=== PATIENT | female | born 1965 | race Caucasian/White ===

== ENCOUNTER 2017-09-06 18:48 | Emergency (ER) | payer SELFPAY ==
[2017-09-06 18:49] VITALS: BP 150/89; PULSE 62; RESP 16; TEMP 37.3; O2SAT 99; BMI 31.1
--- NOTE | 2017-09-06 19:22 | CT_ITS ---
STUDY: CT ABDOMEN AND PELVIS WITH CONTRAST REASON FOR EXAM: Female, 52 years old. Abdominal pain, nausea vomiting and diarrhea with increased white count. RADIATION DOSAGE (If Supplied By Facility): CTDIvol = ( 16.21 ) mGy, DLP = ( 1129.29 ) mGycm TECHNIQUE: Transaxial images were obtained from the dome of the diaphragm to the symphysis pubis with oral contrast. 100 ml of Isovue 300 contrast was administered. Sagittal and coronal images were reconstructed. Individualized dose optimization techniques were used for this CT. COMPARISON: None. FINDINGS: Posterior moderate dependent atelectatic changes of the right lung. More extensive atelectatic change versus early pneumonic infiltrate at the left lung base. The visualized portions of the heart are within normal limits. Normal liver. Dense sludge or numerous tiny gallstones in the gallbladder fundus. Negative for gross wall thickening or pericholecystic fluid. Normal spleen. Normal pancreas. Normal bilateral adrenal glands. Normal right kidney. Normal left kidney. Normal visualized stomach. Normal small intestine. Normal colon. There is non-visualization of the appendix. Normal abdominal aorta. Normal inferior vena cava. Normal retroperitoneum. Distended urinary bladder. Partially septated endometrium with endometrial thickening versus fluid filled endometrial space. There is a large nabothian cyst measuring 3 cm in the lower uterine segment/cervix. There are 2 additional subcentimeter nabothian cysts. Prominent hypodense ovaries bilaterally. Minimal free fluid. Normal abdominal wall. Minor degenerative disc changes of the lumbar spine. CT/Abdomen/Pelvis WITH Contrast IMPRESSION: No acute bowel related findings. Negative for bowel obstruction, perforation or inflammatory bowel changes. The appendix is not visualized. Multiple tiny stones or dense sludge in the gallbladder without wall thickening, pericholecystic fluid or biliary ductal dilatation. Fatty changes of the pancreas. Partially septated endometrium of the uterus with endometrial thickening or fluid filled endometrium. Large nabothian cyst of the cervix. Prominent hypodense ovaries bilaterally. Probable 2.5 cm cyst of the right ovary. No well-defined cyst of the left ovary. Mild free fluid in the pelvis. Normal kidneys bilaterally. Slight prominence of ureters without hydronephrosis. Distended urinary bladder. Electronically Signed: Katherine Nassar MD at 21:40 EDT , Service support ,
[2017-09-06] MEDS: Ondansetron 4 MG/2 ML Vial IV (19:36)
[2017-09-06] MEDS: Morphine 4 MG/ML Syringe IV (19:36)
[2017-09-06] MEDS: Ketorolac 30 MG/ML Syringe IV (19:36)
[2017-09-06] MEDS: 0.9% Normal Saline 1,000 ML 1000 ML IV (19:36)
[2017-09-06 20:04] LABS: Absolute Lymphocyte Count 2.24 X10^3/ul (0.83-4.51); Absolute Neutrophil Count 10.6 X10^3/uL (2.0-7.7); Anion Gap 7 (5-15); BUN 5 mg/dL (7-18); BUN/Creat Ratio 5.6 RATIO (10-20); Basophil# 0.05 X10^3/uL; Basophil% 0.4 % (0-1); Calcium,Total 8.5 mg/dL (8.5-10.1); Chloride 108 mmol/L (98-107); Creatinine, Serum 0.89 mg/dL (0.55-1.02); EST Glomerular Filtration Rate 71 mL/min (>60); Eosinophil# 0.21 X10^3/uL; Eosinophils% 1.5 % (0-5); Est Glom Filt Rate - Afr Amer 86 mL/min (>60); Estimated Creatinine Clearance 59.81 ml/min; Glucose 86 mg/dL (74-106); Hematocrit 31.7 % (37-47); Lymphocyte # 2.24 X10^3/ul (4.0); Lymphocyte % 16.2 % (19-41); Mean Corp Hgb Conc 31.5 g/gl (32-36); Mean Corpuscular Hgb 23.4 pg (27.0-32.0); Mean Corpuscular Volume 74.1 fL (81-99); Mean Platelet Vol. 11.1 fl (6.2-12.0); Monocyte# 0.75 X10^3/uL; Monocyte% 5.4 % (0-10); Neutrophil # 10.56 X10^3/uL (2.7-7.7); Neutrophil % 76.4 % (47-70); Platelet Count 345 K/mm3 (150-450); Potassium 3.5 mmol/L (3.5-5.1); RBC Distribution Width CV 20.8 % (11.6-14.6); RBC Distribution Width SD 55.5 fl (35.1-43.9); Red Blood Count 4.28 M/mm3 (4.2-5.4); Sodium Level 141 mmol/L (136-145); White Blood Count 13.8 K/mm3 (4.4-11.0)
[2017-09-06 20:05] LABS: Differential Indicated SCAN CRITERIA MET; POSITIVE COUNT NO; POSITIVE DIFFERENTIAL NO; POSITIVE MORPHOLOGY YES
[2017-09-06 20:44] LABS: Pregnancy, Serum, hCG Quali. NEGATIVE Negative (0-9 Nonpreg)
[2017-09-06 21:32] LABS: Bacteria 0 SEEN /hpf (None Seen); Mucous, Urine 0 SEEN /hpf (<or=2+); Red Blood Cells-Urine 0 SEEN /hpf (0-5); White Blood Cells 0 SEEN /hpf (0-5)
[2017-09-06 21:34] LABS: Color, Urine Yellow (Yellow); Glucose, Dipstick Normal (Normal); Ketone-Dipstick Negative (Negative); Leukocyte Esterase-Dipstick Negative /ul (Negative); Nitrite-Dipstick Negative (Negative); Occult Blood-Urine Negative /ul (Negative); Protein-Dipstick Negative (Negative); Urine Bilirubin Dipstick Negative (Negative); Urine Clarity Sl. Cloudy (Clear); Urine Urobilinogen Normal (Normal)
[2017-09-06 21:41] LABS: Squamous Epithelial Cells - UA 0-5 SEEN /hpf (5-10)
[2017-09-06 22:06] VITALS: BP 121/69; PULSE 57; RESP 16
--- NOTE | 2017-09-06 22:58 | ED.DCSUM_ITS ---
- ER Visit Summary Date of Service: 09/06/17 Chief Complaint: Pubic and lower quadrant abdominal pain History of Present Illness: The patient is a 52 F past medical history of a uterine ablation. No other prior abdominal surgeries. Patient states that yesterday she had gradual onset of continuous lower quadrant periumbilical abdominal pain. Associated nausea. Denies vomiting or diarrhea. Denies dysuria or denies fever or back pain. No abdominal trauma. Physical Examination: Well-appearing female. Vital signs are stable. Temperature is 99.2. She does not look septic or toxic. She is in no distress. H EENT exam unremarkable. Moist wheeze membranes. Neck nontender no lymphadenopathy. Lungs clear to auscultation bilaterally. Heart regular rhythm no murmur. Abdomen soft nondistended. Normal bowel sounds no peritoneal signs. Mildly tender periumbilically primarily suprapubically. No obvious hernias or masses. The right lower quadrant McBurney's point is nontender. The right upper quadrant in both upper quadrants and epigastric region are completely nontender. There is no distention. She has normal bowel sounds. There is no signs of obstruction. No obvious masses. She is moving all 4 extremities. The neurovascular intact. Back exam nontender. Neurologic exam unremarkable. Test Results: The abdomen with IV and p.o. contrast showed sludge and gallstones. But no cholecystitis. The appendix was not seen. There is a right ovarian cyst of 2.5 cm. There was mild distention of the bladder. White count was elevated 13.8 H&H of 10 and 31 which is her baseline or better she chronically is anemic. Her electrolytes are unremarkable with a normal gap and creatinine. UA was normal. Serum test was negative. Emergency Department Course and Treatment: Patient was treated with IV normal saline, morphine Zofran and Toradol. On repeat exam she is doing much better 2253. Her abdomen is benign. There are no peritoneal signs. Currently she is pain-free and feels well. Treatment Plan: We do not have a specific cause of the patient's abdominal discomfort. She will be discharged home [facility]. She knows to return if she is feeling worse, increasing pain or fever. Disposition: Discharge Impression: Lower quadrant abdominal pain of uncertain etiology This note was generated with [employer] software. It may contain incorrect words, spelling, and punctuation that were not noted in review of the chart prior to signing ED Disposition - Plan for ED Patient: Chief Complaint: Abd Pain Referrals: Sherin Navarrete MD [Primary Care Provider] -
--- NOTE | 2017-09-06 22:59 | DCINST.ED_ITS ---
ED Disposition - Plan for ED Patient: Disposition: Home or Assisted Living Chief Complaint: Abd Pain Instructions: ED Abdominal Pain Unkn Cause Referrals: Sherin Navarrete MD [Primary Care Provider] - As soon as possible Additional Instructions: Tylenol and or Motrin for pain. Follow-up with your primary care physician or the [facility] for further evaluation. There is no specific diagnosis for your abdominal pain this evening. Her labs and CAT scan were unremarkable. Incidentally do have gallstones but they are not the cause your pain tonight. You also have a small right ovarian cyst.
--- NOTE | 2017-09-06 23:06 | DCINST.ED_ITS ---
ED Disposition - Plan for ED Patient: Disposition: Home or Assisted Living Chief Complaint: Abd Pain Instructions: ED Abdominal Pain Unkn Cause Prescriptions: Ondansetron [Zofran Odt] 4 mg PO Q4H PRN PRN #10 tab.rapdis PRN Reason: Nausea Referrals: Sherin Navarrete MD [Primary Care Provider] - As soon as possible Additional Instructions: Tylenol and or Motrin for pain. Follow-up with your primary care physician or the [facility] for further evaluation. There is no specific diagnosis for your abdominal pain this evening. Her labs and CAT scan were unremarkable. Incidentally do have gallstones but they are not the cause your pain tonight. You also have a small right ovarian cyst.
[2017-09-06 23:10] VITALS: BP 113/63; PULSE 78; RESP 16
== END 2017-09-06 23:11 | disposition home or self-care (01) ==
PROVIDERS: Emergency Provider Emergency Medicine; Family Provider Internal Medicine; PCP Internal Medicine
DX: R10.30 Lower abdominal pain, unspecified (principal); R10.33 Periumbilical pain; R11.0 Nausea; K80.80 Other cholelithiasis without obstruction; N83.201 Unspecified ovarian cyst, right side; D64.9 Anemia, unspecified
CPT/HCPCS: 74177; 80048; 81001; 84703; 85025; 96374; 96375; 99284; J7030; Q9967; J2405

== ENCOUNTER → 2020-02-24 07:56 | Outpatient (CLI) | payer MEDICAID, SELFPAY ==
[2020-02-24] VITALS (10 sets, daily range): BP systolic 106–130; BP diastolic 61–90; PULSE 79–89; RESP 16; TEMP 36.8–37.1; O2SAT 99–100; BMI 32.1
[2020-02-24 09:28] LABS: Ferritin 3 ng/mL (8-252); Iron 9 ug/dL (50-170); Iron Binding Capacity,Total 438 ug/dL (250-450)
== END ==
PROVIDERS: PCP Internal Medicine; Referring Provider Obstetrics & Gynecology; Visit Provider Obstetrics & Gynecology
DX: D50.0 Iron deficiency anemia secondary to blood loss (chronic) (principal)
CPT/HCPCS: 36430; 82728; 83540; 83550; 86850; 86900; 86901; 86920; 86922; J7040; P9016; A4216

== ENCOUNTER 2020-03-18 10:00 | Day surgery (SDC) | payer MEDICAID, SELFPAY ==
[2020-02-24 08:11] VITALS: BMI 32.1
--- NOTE | 2020-03-10 17:28 | PCM.HP.BLA ---
History and Physical Date of Admission: 03/18/20 HPI: The patient is a 54 year old female presenting for pre-operative visit.??She had a blood transfusion for hgb 5.9 after her last appointment. ?She has also been getting IV fe infusions. ?Repeat CBC todayshows marked improvement w/ hgb 10.9. She is scheduled for?total laparoscopic hysterectomy with bilateral salpingectomy, for?menometrorrhagia, chronic blood loss iron deficiency anemia, on?03/18/2020. ??Procedure discussed along with risks, benefits and complications. ?Other alternatives discussed for management. Consent form signed??Yes.? PAST MEDICAL HISTORY PAST MEDICAL HISTORY Diagnosis Date ? Acute gastritis without mention of hemorrhage ? ? Allergic rhinitis, cause unspecified ? ? Esophageal reflux 2002 ? Other and unspecified hyperlipidemia ? ? Unspecified hypothyroidism 1995 ? ? PAST SURGICAL HISTORY PAST SURGICAL HISTORY Procedure Laterality Date ? EGD W/O BRSH SPECIMEN W/BX ? 12/30/07 ? LEEP PROCEDURE ([employer])_*[place] ? 11/01/2010 ? LEWIS 2 ? THERMAL ENDOMETRIAL ABLATION ? 03/22/2017 ? Amy ? ? CURRENT MEDICATIONS Current Outpatient Medications Medication Sig Dispense Refill ? tranexamic acid (LYSTEDA) 650 mg tablet Take 2 tablets by mouth three times daily as needed (heavy menstrual bleeding) for up to 5 days. 30 tablet 0 ? norethindrone (AYGESTIN) 5 mg tablet Take 1 tablet by mouth once daily. ONE PO Q 1 HR UNTIL BLEEDING SLOWS, UP TO 5 TABS TODAY. ?THEN ONE PO QID X 3 DAYS THEN TID X 3 DAYS THEN BID X 3 DAYS THEN ONE QDAY. (Patient not taking: Reported on 02/23/2020 ) 30 tablet 1 ? escitalopram oxalate (ESCITALOPRAM) 5 mg tablet Take 1 tablet by mouth once daily. (Patient not taking: Reported on 02/04/2020 ) 30 tablet 5 ? levothyroxine (SYNTHROID) 100 mcg tablet Take 1 tablet by mouth once daily. Take on empty stomach, appointment needed for future refills 30 tablet 5 ? Current Facility-Administered Medications Medication Dose Route Frequency Provider Last Rate Last Admin ? iron sucrose 200 mg injection (VENOFER) ?200 mg INTRAVENOUS 2/WK Faith ([employer]) Edison ? ? ? ALLERGIES:?Patient has no known allergies. ? PERSONAL HISTORY:? SOCIAL HISTORY Social History ? Tobacco Use ? Smoking status: Never Smoker ? Smokeless tobacco: Never Used Substance Use Topics ? Alcohol use: No ? Drug use: No ? FAMILY HISTORY:? FAMILY HISTORY FAMILY HISTORY Problem Relation Age of Onset ? Stroke Mother ? ? other (rheumatoid arthritis) Mother ? ? Cancer Father 69 ?Melanoma/bone cancer ? Heart Maternal Grandmother ? ? Diabetes Maternal Grandmother ? ? Cancer Maternal Grandfather ?pancreatic CA ? Cancer Paternal Grandmother ?spine ? other (Other) Paternal Grandfather ?appendix burst ? REVIEW OF SYMPTOMS: GENERAL: denies fevers or chills ENDOCRINOLOGY: has not been on steroids Cardiology : denies palpitations or chest pain Respiratory: denies SOB or cough Hematology: denies history of prolonged bleeding or easy bruising or VTE Allergy: Denies history of personal or family history of allergy to anesthesia ? ? PHYSICAL EXAMINATION: ? VITALS:?Last menstrual period 02/03/2020. ? GENERAL:??The patient is well nourished, well hydrated in no acute distress. ?, The patient is oriented to time, place, and person. NECK:?Supple. No lynphadenopathy, normal thyroid, no thyromegaly. LUNGS:?Clear to auscultation bilaterally. no wheezes, rhonchi or rales HEART:?Regular rate and rhythm, Normal heart sounds and No murmurs or gallops ? ? EMB 02/22: Endometrial biopsy - Benign cervical tissue with marked acute and chronic endocervicitis. - Proliferative endometrium with stromal pseudodecidualization consistent with exogenous progestin effect. PElVIC US 01/29/2020: Transabdominal ultrasound examination. View: Suboptimal view: restricted by increased bowel gas Uterus Uterus: Visualized Uterus position: anteverted Uterus long 83 mm Uterus ap 49 mm Uterus tr 63 mm Uterus Vol 135.1 cm? Endometrial thickness, total 8.0 mm Right Ovary Rt ovary: Visualized Rt ovary D1 23 mm Rt ovary D2 15 mm Rt ovary D3 14 mm Rt ovary Vol 2.6 cm? Left Ovary Lt ovary: Not visualized ? 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 ? PLAN:???The risks/benefits/alternatives and personal involved for the planned?TLH, bilateral salpingectomy?were reviewed with the patient. Her questions were answered to her satisfaction and she desires to proceed. ?Consent was signed. ?I reviewed with her postop instructions and expectations. ? ? I have reviewed and updated past medical and surgical history, medications and allergies. This H&P was completed in my office on 03/10/2020. Procedure Criteria Procedure Type: Elective COVID Risk Discussion: The surgeon/proceduralist and patient have discussed in detail the risk of exposure to and/or potential harm posed by the COVID-19 virus with having a surgery/procedure at this time versus the risk of delaying the surgery/procedure. It is not possible to know either the risk of delaying the surgery or procedure or chance of getting an infection with perfect accuracy, but a joint decision was made between the patient and the surgeon/proceduralist to proceed at this time with the scheduled surgery/procedure as indicated on the consent form.
--- NOTE | 2020-03-16 12:45 | EKG12_ITS ---
Test Reason : PREOP Blood Pressure : / mmHG Vent. Rate : 065 BPM Atrial Rate : 065 BPM P-R Int : 198 ms QRS Dur : 080 ms QT Int : 386 ms P-R-T Axes : 038 005 033 degrees QTc Int : 401 ms Normal sinus rhythm Low voltage QRS (Precordial Leads) Confirmed by DELANO MARIA, GRACIE ([id number]), social media editor MARKUS GONZALEZ ([id number]) on 03/17/2020 9:44:13 AM Referred By: Trina Wu Confirmed By:GRACIE WICK MD
[2020-03-16 14:03] LABS: Magnesium 2.1 mg/dL (1.6-2.6); Thyroid Stim Hormone (TSH) 3.49 uIU/mL (0.358-3.74)
[2020-03-16 16:56] LABS: Probe Check PASS; Specimen Processing Control PASS
[2020-03-18] VITALS (12 sets, daily range): BP systolic 88–125; BP diastolic 57–83; PULSE 51–65; RESP 14–16; TEMP 36.1–36.9; O2SAT 94–100; BMI 32.3; BMI 32.0
[2020-03-18] MEDS: Gabapentin 600 MG Tablet PO (07:00)
[2020-03-18] MEDS: dexAMETHasone 10 MG/ML Vial 8 MG IV (07:00)
[2020-03-18] MEDS: Scopolamine 1mg/72hr Patch 1 PATCH TD (07:00)
[2020-03-18 10:42] LABS: Internal QC Validated? YES +Cl - CLEAR BKGD; Pregnancy, Urine Negative Negative
[2020-03-18 10:50] LABS: Bedside Glucose 88 mg/dL (70-110)
[2020-03-18] MEDS: Acetaminophen 500 MG Tablet 1000 MG PO ×2 (10:53→18:24)
[2020-03-18] MEDS: Celecoxib 200 MG Capsule 400 MG PO (10:55)
[2020-03-18] MEDS: Phenazopyridine 95 MG Tablet 190 MG PO (10:55)
[2020-03-18] MEDS: Enoxaparin 40 MG/0.4 ML Syringe SC (10:56)
[2020-03-18] MEDS: Lactated Ringers 1,000 ML 40 ML IV ×4 (10:57→15:24)
--- NOTE | 2020-03-18 11:30 | HYST_PTH ---
PATIENT: ABILIO MON [place] [facility][id number] AGE/SX: 54/F ROOM: RE03/18/[address]: Dr. Trina Wu MD : [id number] BED: DIS: 03/19/2020 SPEC #: [id number] RECD: 03/18/20 14:51 STATUS: ISAAC WILLIE #: [id number] TED: 03/18/20 11:[address]: Trina Wu DEPT: SURGICAL PATHOLOGY RECD BY: Jessie Jalloh ENTERED: 03/19/20 07:49 SP TYPE: HYSTERECT OTHR DR: Dr. 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 Endometrium - proliferative endometrium. Myometrium - nodular adenomyosis. Right and left fallopian tubes - no pathologic change. AM:codi 03/22/20 MICROSCOPIC DESCRIPTION Slides are reviewed. GROSS DESCRIPTION Received in fixative is one container labeled with the patient's name and designated uterus. The specimen consists of a uterus with attached cervix and two detached fallopian tubes that are not designated. The uterus with cervix measures 9 x 7 x 5 cm and weighs 135 gm. The ectocervix is somewhat disrupted, however, no mass lesions are seen. The endocervical canal measures 3 cm in length and is grossly unremarkable. The elongated endometrial cavity measures 4 x 3 cm. The myometrium measures 2.5 in greatest thickness and contains a single rubbery, andrade nodule in a submucosal location measuring 0.9 cm in greatest dimension. The right and left fallopian tubes are similar in appearance with average lengths of 6 cm and average diameters of 0.7 cm. Normal fimbriated ends are identified. Aircraft Assembler sections are submitted in seven cassettes as follows: 1 - anterior cervix, 2 - posterior cervix, 3 & 4 - anterior uterine wall, 5 & 6 - posterior uterine wall with submucosal nodule, 7 - one fallopian tube, 8 - the other fallopian tube. / AM:codi 03/19/20 TC:5 CPT: 85081
[2020-03-18] MEDS: Cefazolin 2 GM in 0.9% Normal Saline 100 ML IV (11:38)
[2020-03-18] MEDS: Lubricating Jelly 60 GM Tube 30 GM TOPICAL (12:03)
[2020-03-18] MEDS: Lidocaine 1% /Epi 1:100 (20ml) 20 ML Vial (12:03)
[2020-03-18] MEDS: Bupivacaine Mpf 0.5% 30 ML VIAL (12:03)
--- NOTE | 2020-03-18 13:04 | OP.PCM_ITS ---
Report of Operation Date of Procedure: 03/18/20 Pre-Operative Diagnosis: abnormal uterine bleeding, iron deficiency anemia from chronic blood loss from menorrhagia Post-Operative Diagnosis: Same Surgery/Procedure Performed:: Laparoscopic-assisted vaginal hysterectomy with bilateral salpingectomy and cystoscopy Description of Surgical Findings:: Normal-appearing uterus tubes and ovaries, normal cervix and vagina. patient registration supervisor: Luma Ewing Type of Anesthesia:: General Anesthesiologist: Rosalee Douglas Special Medications: none Specimen's removed: Uterus, cervix, bilateral fallopian tubes Drains: Stringer Estimated Blood Loss (mL): 100 Fluids Replaced: 1000 ml Description of Procedure: The patient was taken to the operating room where she was prepped and draped in the dorsal lithotomy position. Her arms were tucked to the side and padded and her legs were placed in the yellowfin stirrups. Care was taken to ensure that she was placed in a neurologically safe and neutral position. A weighted specu lum was placed in the vagina and the anterior lip of the cervix was grasped with a single-tooth tenaculum. It was deemed that there was enough descent once the patient was asleep that we could proceed with a laparoscopic-assisted vaginal hysterectomy rather than a total laparoscopic hysterectomy. The uterus sounded to 9 centimeters. The Stacy uterine manipulator was placed and secured. The Stringer catheter was placed to straight drain. Attention was turned to the abdominal portion of the case. Before skin incisions were made they were infiltrated with 0.5% Marcaine solution for local anesthetic. A 5 mm intraumbilical incision was made and while tenting the anterior abdominal wall up with towel clamps a 5 mm blade less trocar and sleeve were advanced directly into the peritoneal cavity. Peritoneal placement was confirmed with the laparoscope the pneumoperitoneum was created, and the underlying abdominal contents were intact. The patient was placed in Trendelenburg and the above findings were noted. Right and left lateral 5 mm trochars were placed under direct visualization without difficulty. The antimesenteric portion of the tube was clamped sealed and transected serially on both sides with the LigaSure device. The round ligaments were clamped sealed and transected and a window was made in the peritoneum. The utero-ovarian ligaments were then clamped, sealed and transected with the LigaSure device and the pedicles were hemostatic The bladder flap was dissected down with the LigaSure device and blunt dissection and the uterine arteries were then skeletonized. The uterine arteries were clamped, sealed and transected on both sides with the LigaSure device. At this point the pedicles were all examined and found to be hemostatic. Attention was turned to the vaginal portion of the case. 1% lidocaine with dilute epinephrine solution was used to infiltrate the anterior vaginal epithelium over the cervix. An incision was made from 3 to 9:00 across the anterior vaginal epithelium and the vaginal epithelium was dissected back with blunt sharp dissection. The anterior colpotomy incision was made. The vaginal epithelium on each side of the cervix at 3 and 9:00 was clamped, transected and suture ligated. The next pedicle contained the anterior peritoneum and part of the cardinal ligament. The pedicle was was clamped with a Sarah clamp, transected and suture-ligated. Hemostasis was noted. The uterine fundus was brought through the anterior colpotomy incision. The uterosacral ligaments and vaginal cuff were secured with Sarah clamps. The pedicles were transected. The uterus and cervix were then amputated and removed. The pedicles were secured with an 0 Vicryl suture. At this point, the pedicles were all examined and hemostasis was assured. A [id number] was needed in the midline and the vaginal cuff between the uterosacrals to tack the peritoneum down to the posterior vaginal wall. The vaginal cuff was then closed in a horizontal fashion with interrupted 0 Vicryl [id number] sutures. Care was taken to secure the vagina to the uterosacral ligaments. The Stringer catheter was removed and a cystoscopy was performed. The bladder appeared normal and was intact. Both ureteral orifices were noted and both ureteral jets were seen. The cystoscope was removed and the Stringer catheter was placed back to straight drain. A sponge stick was placed in the vagina to help place traction against the vaginal cuff. The laparoscope was reinserted into the abdomen and the pneumoperitoneum was re- created. The pedicles were reexamined and found to be hemostatic. The vaginal cuff was hemostatic. Laura was placed over the peritoneal edges and no active bleeding was noted through the Laura. The right and left lateral ports were taken out and the sites were hemostatic. The pneumoperitoneum was released and even under low pressure there was no bleeding of any of the pedicles are vaginal cuff. The umbilical port was removed. The umbilical skin incisions were closed with Monocryl suture and skin glue by Dr. Mart. The vaginal instruments were removed by me and a vaginal sweep was completed by me. The surgery was performed by me with assistance other than the portions dictated as above. There were no qualified residents available for this procedure. All sponge lap and needle counts were correct and the patient was transferred to the recovery room in stable condition. Start 1203 stop time 1309 Grafts/Implants Used: none - Complications none - Admit VTE Documentation VTE Present on Admission: No VTE Mechan Device Prophylaxis: [facility] VTE Pharm Prophylaxis ordered?: Yes
[2020-03-18] MEDS: oxyCODONE 5 MG Tablet PO (15:36)
[2020-03-18] MEDS: 0.9% Saline Lock 10 ML Syringe IV (18:24)
[2020-03-18] MEDS: Ketorolac 30 MG/ML Syringe IV (18:24)
[2020-03-18] MEDS: Docusate Sodium 100 MG Capsule PO (21:03)
[2020-03-19] MEDS: Ketorolac 30 MG/ML Syringe IV ×3 (00:11→12:31)
[2020-03-19] MEDS: Acetaminophen 500 MG Tablet 1000 MG PO ×3 (00:11→12:32)
[2020-03-19 03:15] VITALS: BP 96/54; PULSE 64; RESP 16; TEMP 36.6; O2SAT 93
[2020-03-19] MEDS: Levothyroxine 100 MCG Tablet PO (05:20)
[2020-03-19 06:04] LABS: Hematocrit 29.8 % (37-47); Hemoglobin 8.9 g/dL (12.0-15.0); Mean Corp Hgb Conc 29.9 g/dL (32-36); Mean Corpuscular Hgb 25.9 pg (27.0-32.0); Mean Corpuscular Volume 86.9 fL (81-99); Platelet Count 361 K/mm3 (150-450); RBC Distribution Width CV 19.6 % (11.6-14.6); RBC Distribution Width SD 63.2 fl (35.1-43.9); Red Blood Count 3.43 M/mm3 (4.2-5.4); White Blood Count 13.4 K/mm3 (4.4-11.0)
[2020-03-19] MEDS: oxyCODONE 5 MG Tablet PO (06:58)
[2020-03-19 07:23] VITALS: O2SAT 93
--- NOTE | 2020-03-19 07:47 | PCM.DC.AHY ---
Discharge Diet: No Restrictions Discharge Activity: Return to Normal Activity, May Not Drive - while taking narcotic pain medications., May Shower May shower in (days): 1 May resume sexual activity in: 6-8 weeks Call your doctor if your incision/area has: Continuous Slow Oozing, Sudden Increased Bleeding, Increased Pain/ Swelling, Increased Redness, Foul Smelling Discharge Call your doctor if you observe: Fever of 101 or Higher, Inability to urinate, Inability to have a bowel movement, Using more than one pad per hour Cleanse incision/area with: Soap & Water, - - your incisions have skin glue, it vcn get wet Allergies/Adverse Reactions: Allergies No Known Allergies Allergy (Verified 03/15/20 08:14) Medications to take at Discharge Ondansetron [Zofran Odt] 4 mg PO Q4H PRN PRN #10 tab.rapdis 09/06/17 Levothyroxine Sodium [Synthroid] 100 mcg PO DAILY 02/24/20 Naproxen Sodium [Aleve] 220 mg PO PRN PRN 02/24/20 Docusate Sodium [Colace] 100 mg PO BID PRN PRN #60 cap 03/19/20 Ibuprofen [Motrin] 600 mg PO Q6H PRN #60 tab 03/19/20 Oxycodone [Oxyir] 5 mg PO Q6H PRN PRN 7 Days #20 tab 03/19/20 The following prescriptions were given: Docusate Sodium [Colace] 100 mg PO BID PRN PRN #60 cap PRN Reason: Constipation Transmission Status: Pending to [id number] Ibuprofen [Motrin] 600 mg PO Q6H PRN #60 tab PRN Reason: Pain Transmission Status: Pending to [id number] Oxycodone [Oxyir] 5 mg PO Q6H PRN PRN 7 Days #20 tab PRN Reason: severe pain Transmission Status: Sent to [id number] Primary Care Physician: Sherin Navarrete MD [Primary Care Provider] - Test Results: Test results from this visit will be discussed in further detail at your follow-up appointment, if applicable. Please Follow Up With: Trina Wu MD - [phone] When: 1-2 weeks and 6 weeks
[2020-03-19] MEDS: Docusate Sodium 100 MG Capsule PO (09:23)
[2020-03-19] MEDS: Enoxaparin 40 MG/0.4 ML Syringe SC (09:23)
[2020-03-19 11:07] LABS: Hematocrit 27.8 % (37-47); Hemoglobin 8.4 g/dL (12.0-15.0); Mean Corp Hgb Conc 30.2 g/dL (32-36); Mean Corpuscular Hgb 26.4 pg (27.0-32.0); Mean Corpuscular Volume 87.4 fL (81-99); Platelet Count 368 K/mm3 (150-450); RBC Distribution Width CV 19.8 % (11.6-14.6); RBC Distribution Width SD 63.6 fl (35.1-43.9); Red Blood Count 3.18 M/mm3 (4.2-5.4); White Blood Count 13.5 K/mm3 (4.4-11.0)
--- NOTE | 2020-03-19 12:24 | PN.OBGYN_ITS ---
Subjective: c/o some pain. Didn't sleep well. No CP/SOB. Cuco. some po intake. Stringer was still in at 0830 when I saw patient. No signif. VB> - Physical Exam Vitals/I&O's: Vital Signs Temp Pulse Resp BP Pulse Ox 98 F 64 16 96/54 L 93 03/19/20 03:15 03/19/20 03:15 03/19/20 03:15 03/19/20 03:15 03/19/20 07:23 Oxygen Flow Rate (L/min) 6 Oxygen Delivery Method Room Air Weight: 80.2 kg Body Mass Index (BMI) 32.3 Intake and Output for Last 24 Hours 03/17/20 03/18/20 03/19/20 23:59 23:59 23:59 Intake Total 3495 / 3495 600 / 600 Output Total 800 / 800 550 / 550 Balance 2695 / 2695 50 / 50 General: Alert, Cooperative, No apparent distress Abdomen: Soft, Non-Distended, Tender - appropriately Extremities: No edema Skin: Incision - incisions were clean, dry and intact Microbiology Past 72 Hours 03/16/20 12:45 Interface Orders SARS-CoV-2 Antigen (Rapid) - Final SARS-CoV-2 (COVID 19) Laboratory Results 03/19/20 05:39: WBC 13.4 H, RBC 3.43 L, Hgb 8.9 L, Hct 29.8 L, MCV 86.9, MCH 25 .9 L, MCHC 29.9 L, RDW Std Deviation 63.2 H, RDW Coeff of Jazzy 19.6 H, Plt Count 361, MPV 11.0 03/19/20 11:00: WBC 13.5 H, RBC 3.18 L, Hgb 8.4 L, Hct 27.8 L, MCV 87.4, MCH 26.4 L, MCHC 30.2 L, RDW Std Deviation 63.6 H, RDW Coeff of Jazzy 19.8 H, Plt Count 368, MPV 11.0 Current Medications Acetaminophen (Acetaminophen 500 Mg Tablet) 1,000 mg PO Q6 [facility] Last Admin: 03/19/20 05:20 Dose: 1,000 mg Documented by: Docusate Sodium (Docusate Sodium 100 Mg Capsule) 100 mg PO BID [facility] Last Admin: 03/19/20 09:23 Dose: 100 mg Documented by: Enoxaparin Sodium (Enoxaparin 40 Mg/0.4 Ml Syringe) 40 mg SC DAILY [facility] Last Admin: 03/19/20 09:23 Dose: 40 mg Documented by: Lactated Ringer's () 1,000 mls @ 40 mls/hr IV .Q25H [facility] Last Admin: 03/18/20 15:24 Dose: 40 mls/hr Documented by: Ketorolac Tromethamine (Ketorolac 30 Mg/Ml Syringe) 30 mg IV Q6 [facility] Stop: 03/20/20 00:01 Last Admin: 03/19/20 05:21 Dose: 30 mg Documented by: Levothyroxine Sodium (Levothyroxine 100 Mcg Tablet) 100 mcg PO DAILY@0600 [facility] Last Admin: 03/19/20 05:20 Dose: 100 mcg Documented by: Magnesium Chloride (Magnesium Chloride 64 Mg Delay Rel.Tablet) 128 mg PO DAILY PRN PRN PRN Reason: Constipation Nutritional Formula (Lactose Free) (Ensure Enlive 120 Ml Liquid) 120 ml PO TIDCM [facility] Last Admin: 03/19/20 09:22 Dose: 120 ml Documented by: Ondansetron HCl (Ondansetron Odt 4 Mg Tablet) 4 mg PO Q6H PRN PRN PRN Reason: NAUSEA Oxycodone HCl (Oxycodone 5 Mg Tablet) 5 - 10 mg PO Q4H PRN PRN PRN Reason: Pain Score 4-10 Last Admin: 03/19/20 06:58 Dose: 10 mg Documented by: Sodium Chloride (0.9% Saline Lock 10 Ml Syringe) 10 - 40 ml IV UD PRN PRN Reason: SALINE FLUSH Last Admin: 03/18/20 18:24 Dose: 10 ml Documented by: Medical Necessity - Tobacco Use Smoking Status: Never smoker Tobacco Use: Non-smoker Assessment/Plan All Active Problems (Last Reviewed 05/09/17 @ 16:27 by Valery Ariza) Physical exam, pre-employment (Acute) POD#1 s/p LAVH,bilateral salpingectomy anemia, chronic blood loss anemia w/ superimposed acute blood loss appropriate for surgery s/w IVfe recommend MVI push fluids d/w her discharge instructions, operative findings
== END 2020-03-19 17:40 | disposition home or self-care (01) ==
LOC: SDC 10:00 → AC 10:01 → MS3 19:28
PROVIDERS: Anesthesiology; PCP Internal Medicine; Referring Provider Obstetrics & Gynecology; Visit Provider Obstetrics & Gynecology
PROC: 0UT94ZZ Resection of Uterus, Percutaneous Endoscopic Approach (ICD-10-PCS; CPT 58552; principal; 2020-03-18 11:10)
DX: N87.0 Mild cervical dysplasia (principal); N80.0 Endometriosis of uterus; D50.0 Iron deficiency anemia secondary to blood loss (chronic); N92.0 Excessive and frequent menstruation with regular cycle; Z20.828 Contact with and (suspected) exposure to other viral communicable diseases; E03.9 Hypothyroidism, unspecified; Z79.899 Other long term (current) drug therapy
CPT/HCPCS: 00944; 58552; S2900; 36415; 81025; 82962; 83735; 84443; 85027; 86850; 86900; 86901; 87426; 87635; 88307; 93005; C9803; J7120; A4216; J2405; U0002

== ENCOUNTER 2021-02-10 08:09 | Emergency (ER) | payer MEDICAID, SELFPAY ==
[2021-02-10 08:09] VITALS: BP 158/81; PULSE 66; RESP 14; TEMP 36.5; O2SAT 100; BMI 31.7
--- NOTE | 2021-02-10 08:17 | EKG12_ITS ---
Test Reason : CP Blood Pressure : / mmHG Vent. Rate : 060 BPM Atrial Rate : 060 BPM P-R Int : 212 ms QRS Dur : 090 ms QT Int : 408 ms P-R-T Axes : 048 019 052 degrees QTc Int : 408 ms Sinus rhythm with 1st degree A-V block Otherwise normal ECG Confirmed by DELANO MARIA, GRACIE ([id number]), food editor MARKUS GONZALEZ ([id number]) on 02/11/2021 9:11:51 AM Referred By: RAMOS Confirmed By:GRACIE WICK MD
--- NOTE | 2021-02-10 08:17 | CT_ITS ---
STUDY: CTA CHEST AND CTA ABDOMEN/PELVIS WITH CONTRAST REASON FOR EXAM: Female, 55 years old. Chest and back pain, dissection study RADIATION DOSAGE (If Supplied By Facility): CTDIvol = ( 14.89 ) mGy, DLP = ( 1217.72 ) mGycm TECHNIQUE: The examination was performed with the intravenous administration of IV 100mL Isovue-370. Post-processing of the angiographic images was performed, with multiplanar reformation and 3D reconstruction. Individualized dose optimization techniques were used for this CT. COMPARISON: No relevant priors. FINDINGS: Heterogeneous enlargement of the thyroid gland more pronounced on the right side. This is suggestive of goitrous enlargement. Possible 2.7 cm nodular density in the right breast with punctate calcification within it. CTA Chest Normal enhancement of the main pulmonary artery and right and left pulmonary arteries. Normal enhancement of the bilateral peripheral pulmonary arteries. There is no demonstrated pulmonary embolism. Normal thoracic aorta and visualized great vessels. There is no demonstrated aortic dissection. Normal heart and pericardium. Normal mediastinum. Normal hilar regions. Normal visualized trachea and bronchi. The lungs are well expanded. Minimal degree of dependent atelectasis at the lung bases. Normal pleura. Normal chest wall structures. Normal osseous structures. Normal visualized upper abdomen. CTA Abdomen T Pelvis The visualized lung bases are unremarkable. The visualized portions of the heart are within normal limits. Normal liver. Multiple small gallstones are seen in the gallbladder lumen. Normal spleen. Normal pancreas. Normal bilateral adrenal glands. Normal right kidney. Normal left kidney. Normal visualized stomach. Normal small intestine. There are multiple colonic diverticula consistent with diverticulosis. The appendix is visualized and appears normal. Normal abdominal aorta. Normal inferior vena cava. Normal retroperitoneum. Normal urinary bladder. The patient is status post hysterectomy. Normal abdominal wall. Normal osseous structures. CT/CTA Chst, Abd, Pel W and/or WO IMPRESSION: Normal CTA chest and CTA abdomen and pelvis with contrast. Electronically Signed: Kerwin Winter MD at 9:03 EDT , Service support ,
--- NOTE | 2021-02-10 08:22 | ED.VIS.CHEST ---
HPI History of Present Illness Chief Complaint: Chest Pain Informant: patient Onset/Context/Timing Onset: Today Activity at onset: sudden Narrative Narrative: Patient is a 55-year-old female presenting with sudden onset of substernal chest pain rating to her back. States it started around 645 this morning. She describes it as sharp and squeezing. States it extended from the middle of her chest and slightly tender abdomen. At lasted for about 5 minutes and then subsided. She no she feels pain in her back. She denies any numbness or tingling in her legs. She states she did have some tingling in her arms. She any difficulty breathing. She states she never anything like this before. Does have a history of hypothyroid but inconsistently takes her Synthroid. She last had a couple weeks ago. She also notes for the past few weeks has been having intermittent hot and cold flashes. She denies any swelling of her legs. She has a history of DVT or PE. She she is otherwise been feeling well but does report increased anxiety and stress. PFSH PFS Home Medications levothyroxine 100 mcg PO DAILY 02/24/20 [History Last Taken Unknown] Allergy/AdvReac Type Severity Reaction Status Date / Time No Known Allergies Allergy Verified 03/15/20 08:14 Family History Other CVA (cerebral vascular accident) Cancer Social History Smoking Status: Never smoker alcohol intake: never ROS ROS ED Constitutional Constitutional ED: Reports chills and sweats; Denies fever(s) Eyes Eyes: Denies change in vision ENT ENT ED: Denies rhinorrhea or sore throat Cardiovascular Cardiovascular: Reports chest pain; Denies palpitations Respiratory/Chest Respiratory/Chest: Denies cough or dyspnea Gastrointestinal Gastrointestinal: Reports abdominal pain; Denies diarrhea, nausea or vomiting Musculoskeletal Musculoskeletal: Reports back pain; Denies arthralgias or myalgias Integumentary Denies rash Neurologic Neurologic: Denies headache(s), paresthesias or weakness Psychiatric Psychiatric: Denies depression EXAM Physical Exam Const Vital Signs: 02/10/21 08:09 02/10/21 08:12 02/10/21 08:29 Temperature 97.7 F L Temperature Source Oral Pulse Rate 66 62 Respiratory Rate 14 Respiratory Effort Normal Non-Labored Blood Pressure 158/81 H 141/85 H Blood Pressure Mean 106 Pulse Ox 100 Oxygen Delivery Method Room Air 02/10/21 08:44 Temperature Temperature Source Pulse Rate Respiratory Rate Respiratory Effort Blood Pressure Blood Pressure Mean Pulse Ox 98 Oxygen Delivery Method Room Air Positive well nourished, well developed and obese General Appearance ED: well developed Nutritional Appearance: obese HEENT Reports moist mucous membranes normocephalic Eyes PERRL and EOMs intact bilaterally Neck supple and no JVD Chest Wall inspection of chest normal Resp normal respiratory effort Effort and Inspection: respiratory distress Cardio regular rate, regular rhythm and no murmurs GI normal to inspection, nondistended, normoactive bowel sounds and no masses Extremity normal to inspection Extremity Narrative: 2+ bilateral radial pulses. 2+ bilateral PT pulses. 1+ bilateral DP pulses General Extremety ED: Negative for edema or tenderness General Extremity: Negative for edema Neuro oriented x3 and no sensory deficits noted Sensorium / Orientation: awake and alert Motor Exam: strength 5/5 throughout Psych mental status grossly normal Skin no rashes or lesions noted Heart Score History: Moderately Suspicious ECG: Normal Age: >45 - <65 years Risk Factors: 1 or 2 Risk Factors Troponin: </= Normal Limit Score: 3 MDM MDM MDM Narrative Medical decision making narrative: Patient is evaluated for sudden onset of chest pain that radiates to her back. On arrival patient peers nontoxic in no acute distress. Given her constellation of chest pain rating to her back as well as a possible epigastric pain I did obtain a CTA to rule out dissection. This is negative and does not show any acute process.-See troponin is normal x2. She does not have any acute EKG changes. She is given aspirin and does have improvement of her pain with nitroglycerin. After 2 doses patient remains pain-free in the emergency room. Her TSH is elevated consistent likely with hypothyroid, suspect that this is given to her medication noncompliance with her Synthroid. I do not suspect myxedema coma at this time. 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 Her heart score is 3 and she would be candidate for outpatient follow-up. She is instructed to call her PCP today and follow-up closely for further outpatient cardiac testing as well as resuming her Synthroid. She is instructed to start taking daily aspirin. Patient is counseled on signs and symptoms requiring return to the emergency room. Patient verbalizes agreement and understand this plan. Patient discharged home in stable and improved condition. Lab Data Attestation: I reviewed the patient's lab results. Labs: Laboratory Results - last 24 hr 02/10/21 02/10/21 02/10/21 08:10 08:10 08:10 WBC 7.4 RBC 4.51 Hgb 13.6 Hct 41.8 MCV 92.7 MCH 30.2 MCHC 32.5 RDW Std Deviation 44.1 H RDW Coeff of Jazzy 13.1 Plt Count 307 MPV 11.2 Immature Gran % (Auto) 0.300 Neut % (Auto) 62.3 Lymph % (Auto) 26.0 [place] % (Auto) 8.0 Eos % (Auto) 2.7 Baso % (Auto) 0.7 Absolute Neuts (auto) 4.6 Absolute Lymphs (auto) 1.92 Nucleated RBC % 0 PT Cancelled INR Cancelled Sodium 140 Potassium 3.9 Chloride 107 Carbon Dioxide 27.0 Anion Gap 6 BUN 15 Creatinine 1.12 H Estim Creat Clear Calc 50.16 Est GFR (MDRD) Af Amer 65 Est GFR (MDRD) Non-Af 54 L BUN/Creatinine Ratio 13.4 Glucose 116 H Calcium 9.4 Magnesium 2.2 Troponin I High Sens 5 TSH 18.30 H 02/10/21 02/10/21 08:41 10:16 WBC RBC Hgb Hct MCV MCH MCHC RDW Std Deviation RDW Coeff of Jazzy Plt Count MPV Immature Gran % (Auto) Neut % (Auto) Lymph % (Auto) [place] % (Auto) Eos % (Auto) Baso % (Auto) Absolute Neuts (auto) Absolute Lymphs (auto) Nucleated RBC % PT 12.9 INR 1.0 Sodium Potassium Chloride Carbon Dioxide Anion Gap BUN Creatinine Estim Creat Clear Calc Est GFR (MDRD) Af Amer Est GFR (MDRD) Non-Af BUN/Creatinine Ratio Glucose Calcium Magnesium Troponin I High Sens 4 TSH Radiography Diagnostic Testing: Clinical Impression(s) from Imaging Studies Chest/Abdomen/Pelvis CTA 02/10/21 08:17 IMPRESSION: Normal CTA chest and CTA abdomen and pelvis with contrast. Electronically Signed: Kerwin Winter MD at 9:03 EDT , Service support , Rhythm Strip Rhythm Strip: Sinus Rhythm Rate: 60 Ectopy: None EKG Initial EKG: Attestation: I personally reviewed and interpreted this EKG as follows: Interpretation: Sinus Rhythm Comments: Normal sinus rhythm at a rate of 60 First-degree AV block with a DC interval of 212 Normal axis Normal intervals Normal ST segments Discharge Plan Triage Chief Complaint: Chest Pain ED Provider: Maday Sanchez Dx/Rx/DC Orders Clinical Impression: Chest pain, Hypothyroid, Noncompliance w/medication treatment due to intermit use of medication Instructions: ED Chest Pain, Uncertain Cause Prescriptions: No Action levothyroxine 100 MCG tablet 100 mcg PO DAILY RF: 0 Primary Care Provider: Sherin Navarrete Referrals: Sherin Navarrete MD [Primary Care Provider] - Activity Restrictions/Additional Instructions: Start taking 325 mg of aspirin daily. Follow-up closely with your primary care doctor for further outpatient cardiac testing and please discuss having a stress test with your primary care doctor. Please start taking your Synthroid (levothyroxine) daily. Disposition Disposition: Home, Self Care
[2021-02-10 08:25] LABS: Absolute Lymphocyte Count 1.92 X10^3/uL (0.83-4.51); Absolute Neutrophil Count 4.6 X10^3/uL (2.0-7.7); Basophil# 0.05 X10^3/uL; Basophil% 0.7 % (0-1); Eosinophils% 2.7 % (0-5); Hematocrit 41.8 % (37-47); Hemoglobin 13.6 g/dL (12.0-15.0); Lymphocyte # 1.92 X10^3/ul (0.83-4.51); Mean Corp Hgb Conc 32.5 g/dL (32-36); Mean Corpuscular Hgb 30.2 pg (27.0-32.0); Mean Corpuscular Volume 92.7 fL (81-99); Mean Platelet Vol. 11.2 fl (6.2-12.0); Monocyte# 0.59 X10^3/uL; NRBC Flagged by Analyzer 0 % (0-5); Neutrophil % 62.3 % (47-70); Platelet Count 307 K/mm3 (150-450); RBC Distribution Width CV 13.1 % (11.6-14.6); RBC Distribution Width SD 44.1 fl (35.1-43.9); Red Blood Count 4.51 M/mm3 (4.2-5.4); White Blood Count 7.4 K/mm3 (4.4-11.0)
[2021-02-10] MEDS: Aspirin 81 MG TAB.CHEW 324 MG PO (08:28)
[2021-02-10 08:29] VITALS: BP 141/85; PULSE 62
[2021-02-10] MEDS: Nitroglycerin SL (ED/IMG/CATH) 0.4 MG TABLET SL (08:29)
[2021-02-10 08:44] VITALS: O2SAT 98
[2021-02-10 08:56] LABS: Anion Gap 6 (5-15); BUN 15 mg/dL (7-18); BUN/Creat Ratio 13.4 RATIO (10-20); Calcium,Total 9.4 mg/dL (8.5-10.1); Chloride 107 mmol/L (98-107); Creatinine, Serum 1.12 mg/dL (0.55-1.02); EST Glomerular Filtration Rate 54 mL/min (>60); Est Glom Filt Rate - Afr Amer 65 mL/min (>60); Estimated Creatinine Clearance 50.16 ml/min; Glucose 116 mg/dL (74-106); Magnesium 2.2 mg/dL (1.6-2.6); Potassium 3.9 mmol/L (3.5-5.1); Sodium Level 140 mmol/L (136-145); Troponin-I HS 5 pg/mL (3.0-54.0)
[2021-02-10 08:58] LABS: Prothrombin Time (Protime)PT. 12.9 SECONDS (11.7-14.9)
[2021-02-10 10:43] LABS: Troponin-I HS 4 pg/mL (3.0-54.0)
[2021-02-10 11:35] VITALS: BP 137/69; PULSE 71; RESP 15; O2SAT 98
== END 2021-02-10 11:38 | disposition home or self-care (01) ==
PROVIDERS: Emergency Provider Emergency Medicine; PCP Internal Medicine
DX: R07.89 Other chest pain (principal); R10.9 Unspecified abdominal pain; M54.9 Dorsalgia, unspecified; I44.0 Atrioventricular block, first degree; E66.9 Obesity, unspecified; Z68.31 Body mass index [BMI] 31.0-31.9, adult; E03.9 Hypothyroidism, unspecified; F41.9 Anxiety disorder, unspecified; Z91.14 Patient's other noncompliance with medication regimen; Z79.899 Other long term (current) drug therapy
CPT/HCPCS: 71275; 74174; 80048; 83735; 84443; 84484; 85025; 85610; 93005; 99285; Q9967; A4216

== ENCOUNTER 2021-09-21 17:36 | Emergency (ER) | payer MEDICAID, SELFPAY ==
[2021-09-21 17:37] VITALS: BP 167/80; PULSE 63; RESP 16; TEMP 36.2; O2SAT 97; BMI 32.0
--- NOTE | 2021-09-21 17:50 | EX.ED.VIS.UR ---
HPI HPI - URI History of Present Illness Chief Complaint: Sore Throat Narrative Narrative: Patient who denies significant past medical history states that she has had a sore throat for 3 weeks. She presents today to be reevaluated. States her symptoms began 3 weeks ago with a sore throat and a cough. She went to [facility] where she said she had a negative strep test and she was placed on 4 days of prednisone. She took this but her sore throat and cough came back afterwards. She saw Dr. Valenzuela who placed her on antibiotics and told her that she did not have a tonsillar abscess or infection of her tonsils. She has been able to eat and drink. Pain is worse with swallowing. She denies any shortness of breath but states she has this annoying cough that has continued and returned. She was unable to tolerate the antibiotics. She denies any fevers or chills. She presents for evaluation of her continued cough and sore throat. ROS ROS ED ROS Narrative Constitutional: No fever, no chills. HEENT: 3 weeks of sore throat. No neck pain. No loss of vision. No rhinorrhea. Cardiovascular: No chest pain. No palpitations. No pedal edema. Respiratory: Positive cough, no shortness of breath. Abdominal: No abdominal pain. No nausea. No vomiting. Genitourinary: No dysuria. No hematuria. Musculoskeletal: No myalgias. No arthralgias. Neurologic: No headaches. No dizziness. No lightheadedness. Skin: No rash. No change in color. Psychiatric: No depression. No anxiety. [facility] Home Medications levothyroxine 100 mcg PO DAILY 02/24/20 [History Last Taken Unknown] Allergy/AdvReac Type Severity Reaction Status Date / Time No Known Allergies Allergy Verified 09/21/21 17:37 Family History Other CVA (cerebral vascular accident) Cancer Social History Smoking Status: Never smoker alcohol intake: never EXAM Physical Exam Narrative Exam Narrative: Afebrile. Vital signs noted. HEENT: Normocephalic. Atraumatic. PERRL, EOMI. Neck soft and supple. No point tenderness or step off. Airway patent. Mild pharyngeal erythema. No exudate. No drooling or trismus. Cardiovascular: Regular rate and rhythm. No murmurs, rubs, or gallops appreciated. Respiratory: No tachypnea. Lungs clear to auscultation bilaterally. Gastrointestinal: Abdomen soft, nontender, with normoactive bowel sounds. No rebound or guarding. Neurological: Awake. Alert. Nonfocal, nonlateralizing. Skin: No rash. Normal color. No pallor. Musculoskeletal: No pedal edema. Full range of motion extremities. Const Vital Signs: 09/21/21 17:37 Temperature 97.1 F L Temperature Source Temporal Pulse Rate 63 Respiratory Rate 16 Blood Pressure 167/80 H Blood Pressure Mean 109 Pulse Ox 97 Oxygen Delivery Method Room Air MDM MDM MDM Narrative Medical decision making narrative: Her pulse ox is 97% on room air without evidence of hypoxia. She is afebrile here and nontoxic-appearing. I will swab her for COVID-19 although her symptoms have been present for 3 weeks. She was mildly concerned about the cough so I will obtain a chest x-ray in 2 views to ensure that she does not have a pneumonia. She was given dexamethasone 8 mg orally as a long-acting steroid. Chest x-ray in 2 views interpreted by myself shows no acute process, no pneumothorax and no infiltrate. I do not feel antibiotics are indicated. Her COVID swab is negative. At this point in time, I feel she can be discharged safely home to follow-up with her fitter helper and her primary care physician as needed. She will take [id number] cough medications. Return instructions to the emergency department were reviewed. Disposition is discharged home in stable condition. Radiography Diagnostic Testing: Clinical Impression(s) from Imaging Studies Chest X-Ray 09/21/21 18:14 IMPRESSION: There are no acute findings. Electronically Signed: Brad Ron MD at 18:27 EDT , Discharge Plan Triage Chief Complaint: Sore Throat ED Provider: Feng Ludwig Dx/Rx/DC Orders Clinical Impression: Pharyngitis, Cough Instructions: ED Cough Chronic Uncertain Cause Adult, ED Pharyngitis, Viral Prescriptions: No Action levothyroxine 100 MCG tablet 100 mcg PO DAILY RF: 0 Primary Care Provider: Sherin Navarrete Referrals: Jaspal Cody MD [STAFF PHYSICIAN] - As soon as possible Sherin Navarrete MD [Primary Care Provider] - 1 Week if not improving Disposition Disposition: Home, Self Care
[2021-09-21] MEDS: dexAMETHasone 4 MG Tablet 8 MG PO (18:05)
--- NOTE | 2021-09-21 18:14 | RAD_ITS ---
STUDY: X-RAY CHEST REASON FOR EXAM: Female, 56 years old. Technologist Notes PT ARRIVES WITH A SORE THROAT AND COUGH FOR 3 WEEKS. Cough TECHNIQUE: XR Chest 2 Views COMPARISON: Prior comparison studies are not available for review at this time. FINDINGS: There is a left pleural effusion. Normal size heart. Normal mediastinum and mg. Normal visualized pulmonary arteries. Normal visualized aortic arch and descending thoracic aorta. There are diffuse degenerative changes of the visualized thoracic spine. Normal visualized ribs, clavicles, and shoulders. There is no demonstrated abnormality of the visualized soft tissue structures of the upper abdomen. RAD/Chest PA and Lateral IMPRESSION: There are no acute findings. Electronically Signed: Brad Ron MD at 18:27 EDT ,
[2021-09-21 18:38] VITALS: BP 160/80; PULSE 76; RESP 12
== END 2021-09-21 18:39 | disposition home or self-care (01) ==
PROVIDERS: Emergency Provider Emergency Medicine; PCP Internal Medicine; Visit Provider Emergency Medicine
DX: J02.9 Acute pharyngitis, unspecified (principal); R05.9 Cough, unspecified
CPT/HCPCS: 71046; 87811; 99283

== ENCOUNTER 2022-09-17 12:56 | Emergency (ER) | payer MEDICAID, SELFPAY ==
[2022-09-17 12:56] VITALS: BP 140/92; PULSE 72; RESP 18; TEMP 35.7; O2SAT 97; BMI 31.4
--- NOTE | 2022-09-17 13:18 | EDS_ITS ---
HPI History of Present Illness Chief Complaint: Lower Extremity Injury PFS PFS Medical History no medical history Home Medications levothyroxine 100 mcg tablet 100 mcg PO DAILY 02/24/20 [History Last Taken Unknown] Allergy/AdvReac Type Severity Reaction Status Date / Time No Known Allergies Allergy Verified 09/21/21 17:37 Family History Other CVA (cerebral vascular accident) Cancer Social History Smoking Status: Never smoker alcohol intake: never EXAM Physical Exam Const Vital Signs: 09/17/22 12:56 Temperature 96.3 F L Temperature Source Temporal Pulse Rate 72 Respiratory Rate 18 Blood Pressure 140/92 H Blood Pressure Mean 108 Pulse Ox 97 Oxygen Delivery Method Room Air MDM MDM MDM Narrative Medical decision making narrative: HISTORY OF PRESENT ILLNESS: 57-year-old female here with concern for sprain hamstring. States she has severe right posterior upper leg pain. States approximately 5 days ago she slipped in her living room doing the splits. States since then she has had constant severe pain is worse with movement specifically taking a heel up to the buttocks. She denies any hip pain, knee pain. Denies any surgery to the involved extremity. Patient denies active cancer, being bedridden for greater than 3 days, denies unilateral leg swelling, denies any varicose veins, denies any calf tenderness, denies any edema. Denies major surgery within 12 weeks, recent paralysis, previous DVT. REVIEW OF SYSTEMS: Pertinent positives: Leg pain Pertinent negatives: Numbness, tingling, bowel or bladder incontinence, fever PHYSICAL EXAM: Nursing triage notes reviewed, Vital signs reviewed Constitutional: please see mdm HENT: MMM Eyes: Pupils equal round and reactive to light, Extraocular muscles intact Neck: No stridor, no JVD, full neck ROM Lungs: Clear to auscultation, No wheezing or rales. No increased work of breathing, no conversational dyspnea, no accessory muscle use, no nasal flaring. No respiratory distress noted Heart: Regular rate and rhythm, No murmurs, No rubs and No gallops, 2+ distal pulses (radial, femoral, posterior tibial) in all extremities Abdomen: Soft, there is no tenderness, rigidity, rebound or guarding, no obvious peritoneal signs, no palpable pulsatile abdominal masses, no auscultated abdominal bruit : No CVAT Extremities: No edema, intact quadricep tendon complex,, soft compartment, intact knee flexion. Bruising noted over posterior upper leg Neuro: Intact sensation L1-S1 dermatomal distributions. Intact 5/5 strength in hip flexion (T12-L3). Knee extension (L2-L4). Ankle dorsiflexion (L4-L5). Ankle plantar flexion (S1). Great toe extension (L5). 2+ patellar and Achilles DTRs. Skin: No rash or lesions noted MEDICAL DECISION MAKING: Chief Complaint: Leg pain External records reviewed: No recent advanced imaging of the involved extremity Factors affecting care: Hypothyroidism Social determinants of health: None History obtained from others: None Consults: None ALL IMAGES HAVE BEEN PERSONALLY REVIEWED AND INTERPRETED BY MYSELF. MDM Narrative: The patient was hemodynamically stable, afebrile, nontoxic-appearing. Right lower extremity neurovascularly intact exam consistent with likely semitendinosis, semimembranosus muscle strain. I considered DVT however patient has low DVT risk and no stigmata of VTE on exam. I considered obtaining an ultrasound however thought this was not indicated at this time given low Wells DVT risk score. There is no signs of arterial occlusion, compartment syndrome, septic arthritis, necrotizing fasciitis on exam. Patient was given symptomatic treatment here and instructions to take Tylenol, ibuprofen and follow the primary care physician for further outpatient evaluation. Patient expressed un derstanding agree with the plan Total critical care time today provided was at least 0 minutes. This excludes separately billable procedures. There was a high probability of clinically significant/life threatening deterioration in the patient's condition which required my urgent intervention. Shared decision making: I will have a discussion with the patient and or visitors regarding risk/benef its of further testing or admission. They will be made aware of of the risk/benefits inherent in this decision they will be given the opportunity to voice understanding. Discharge Plan Triage Chief Complaint: Lower Extremity Injury ED Provider: Bud Vigil Dx/Rx/DC Orders Clinical Impression: Hamstring strain Instructions: ED Muscle Strain, Extremity Prescriptions: No Action levothyroxine 100 MCG tablet 100 mcg PO DAILY Stand Alone Forms: ED Work / School Excuse Primary Care Provider: Sherin Navarrete Referrals: Sherin Navarrete MD [Primary Care Provider] - Activity Restrictions/Additional Instructions: Thank you for trusting us with your care today! Please take Tylenol (2 pills, 650 mg), ibuprofen (2 pills, 400 mg) every 6 hours as needed for pain and fever control. Please return to the emergency department if your symptoms change or worsen. Specifically if develop loss of movement, sensation involved extremity. Develop discoloration or coolness to touch of the extremity. If you develop swelling of the lower extremity in comparison to the unaffected side. If you develop bowel or bladder incontinence, urinary retention, fever. Please follow with your primary care physician for further outpatient evaluation and management. Disposition Disposition: Home, Self Care Discharge Date/Time: 09/17/22 15:50
[2022-09-17] MEDS: Ibuprofen 200 MG Tablet 400 MG PO (15:15)
[2022-09-17] MEDS: oxyCODONE 5 MG Tablet PO (15:16)
[2022-09-17] MEDS: Acetaminophen 325 MG Tablet PO (15:16)
== END 2022-09-17 15:50 | disposition home or self-care (01) ==
PROVIDERS: Emergency Provider Emergency Medicine; PCP Internal Medicine; Visit Provider Emergency Medicine
DX: S76.319A Strain of muscle, fascia and tendon of the posterior muscle group at thigh level, unspecified thigh, initial encounter (principal); E03.9 Hypothyroidism, unspecified; W01.0XXA Fall on same level from slipping, tripping and stumbling without subsequent striking against object, initial encounter; Y93.89 Activity, other specified; Y92.89 Other specified places as the place of occurrence of the external cause; Z79.899 Other long term (current) drug therapy
CPT/HCPCS: 99283

== ENCOUNTER 2024-10-23 21:47 | Emergency (ER) | payer SELFPAY ==
[2024-10-23 21:48] VITALS: BP 186/69; PULSE 51; RESP 26; TEMP 36.2; O2SAT 98; BMI 30.2
--- NOTE | 2024-10-23 22:05 | RAD_ITS ---
PROCEDURE: ELBOW MIN 3 VIEWS 10/23/2024 REASON FOR EXAM: FALL TECHNIQUE: ELBOW MIN 3 VIEWS COMPARISON: None. FINDINGS: No acute fracture or dislocation. Alignment is anatomic. Preserved joint spaces. No joint effusion. No aggressive osseous lesion. Small circumscribed sclerotic focus within the proximal radial shaft, most likely a benign osteoma/bone island. No appreciable soft tissue swelling or radiopaque foreign body. RAD/Elbow min 3 Views IMPRESSION: No acute fracture or dislocation. Reading Location: [id number]
--- NOTE | 2024-10-23 22:05 | RAD_ITS ---
PROCEDURE: FOOT MIN 3 VIEWS 10/23/2024 REASON FOR EXAM: FALL TECHNIQUE: FOOT MIN 3 VIEWS COMPARISON: None. FINDINGS: Tiny curvilinear calcific fragments at the lateral aspect of the midfoot at the lateral aspect of the calcaneocuboid articulation compatible with small acute avulsion fractures. Focal soft tissue swelling at this location. No additional acute fracture or dislocation. Alignment is anatomic on these nonweightbearing views. Well preserved joint spaces. Normal bone mineralization. Small plantar calcaneal spur. RAD/Foot min 3 Views IMPRESSION: Tiny acute avulsion fractures at the lateral aspect of the calcaneocuboid artic ulation. Reading Location: [id number]
--- NOTE | 2024-10-23 23:07 | EDS_ITS ---
HPI History of Present Illness Chief Complaint: Fall Informant: patient Narrative Narrative: Patient is a 59-year-old female who reports no significant past medical history. She states that a few hours prior to arrival she was standing 3 steps up on a ladder. She states she lost her balance and fell. She denies striking her head or any loss of consciousness. She states that she is not on blood thinners nor does she have a history of bleeding disorder. She states that she injured her right foot and right elbow. She states she has concern for potential fracture based on the fall and pain and therefore comes in for evaluation [facility] Home Medications ?Medication ?Instructions ?Recorded ?Last Taken ?Type levothyroxine 100 mcg tablet 100 mcg PO DAILY 02/24/20 Unknown History oxycodone-acetaminophen 5 mg-325 1 tab PO Q6H PRN pain 3 days #12 10/23/24 Unknown Rx mg tablet (Percocet) tabs Allergy/AdvReac Type Severity Reaction Status Date / Time No Known Allergies Allergy Verified 10/23/24 21:48 Family History Other CVA (cerebral vascular accident) Cancer Social History Smoking Status: Never smoker alcohol intake: never ROS ROS ED Constitutional Constitutional ED: Denies chills or fever(s) Eyes Eyes: Denies blurry vision or change in vision ENT ENT ED: Denies sore throat Cardiovascular Cardiovascular: Reports other Details: Negative syncope ; Denies chest pain Respiratory/Chest Respiratory/Chest: Denies cough or dyspnea Gastrointestinal Gastrointestinal: Denies abdominal pain, diarrhea, nausea or vomiting Musculoskeletal Musculoskeletal: Reports other Details: Positive right elbow and foot pain ; Denies back pain or neck pain Integumentary Reports Abrasions Neurologic Neurologic: Denies headache(s) or paresthesias Hematologic/Lymphatic Hematologic/Lymphatic: Denies easy bleeding or easy bruising EXAM Physical Exam Const Vital Signs: 10/23/24 21:48 Temperature 97.2 F L Temperature Source Temporal Pulse Rate 51 L Respiratory Rate 26 H Blood Pressure 186/69 H Blood Pressure Mean 108 Pulse Ox 98 Oxygen Delivery Method Room Air Positive well nourished and well developed General Appearance ED: well developed HEENT HEENT Narrative: Normocephalic atraumatic No signs of depressed or basilar skull fracture Eyes PERRL and EOMs intact bilaterally General Eye ED: Negative for scleral icterus Neck supple Neck Narrative: No bony deformity or step-off of the cervical spine no midline tenderness to palpation Chest Wall palpation of chest normal Resp normal respiratory effort and clear to auscultation bilaterally Cardio regular rate and regular rhythm GI normal to inspection, nondistended, normoactive bowel sounds, non-tender, non- distended and no masses Auscultation: normoactive bowel sounds Palpation: soft Back/Spine Back/Spine Narrative: No bony deformity or step-off of the thoracic or lumbar spine no midline tenderness to palpation Extremity Extremity Narrative: Pelvis is stable there is no shortening or external rotation of either lower extremity Bilateral upper and lower extremities are neurovascularly intact All compartments are soft and compressible going against compartment syndrome There is soft tissue swelling over top the olecranon of the right elbow. Active range of motion is a decrease secondary to pain. No ligamentous or tendon laxity noted. No obvious deformity or joint effusion There is soft tissue swelling with ecchymosis over top of the dorsal lateral aspect of the right foot. There is pain with palpation at this site. There is no obvious bony deformity or joint effusion. Neuro oriented x3, CN's II-XII intact bilaterally and no sensory deficits noted Sensorium / Orientation: alert Psych mental status grossly normal Skin Skin Narrative: Soft tissue swelling of the right elbow and right foot with ecchymosis as documented above MDM MDM MDM Narrative Medical decision making narrative: Patient presented to the ER hypertensive but otherwise with stable vitals. She reported mechanical fall and she did not strike her head or have any LOC nor is she on blood thinners so concern for traumatic subarachnoid or subdural hemorrhage is low. Also she had no midline neck pain concern for cervical compression fracture is low. Therefore this time only felt need of x-rays of the foot and elbow with contusion versus fracture being a potential diagnoses. X-rays of the elbow revealed soft tissue swelling without fracture or dislocation. X-rays of the foot showed a small avulsion fracture off the cuboid bone. However the patient is closed and neurovascularly intact and as it is only an avulsion fracture is not an unstable fracture and therefore does not need splinting or bracing. Therefore at this time as patient's physical exam is consistent with contusion of the elbow and as well as avulsion fracture of the foot but there is low concern for internal injury or head injury I do not feel the need for further workup and she is otherwise safe for discharge with symptomatic care History & Record Review Discussion w/independent historian: Patient Radiography Diagnostic Testing: Clinical Impression(s) from Imaging Studies Elbow X-Ray 10/23/24 22:05 IMPRESSION: No acute fracture or dislocation. Reading Location: [facility] Foot X-Ray 10/23/24 22:05 IMPRESSION: Tiny acute avulsion fractures at the lateral aspect of the calcaneocuboid articulation. Reading Location: [facility] Right elbow x-ray as interpreted by the emergency medicine physician reveals no acute fracture or dislocation or joint effusion Right foot x-ray as interpreted by the emergency medicine physician reveals an avulsion fracture off the cuboid. No dislocation or joint effusion Discharge Plan Triage Chief Complaint: Fall ED Provider: Delroy Wilson Dx/Rx/DC Orders Clinical Impression: Contusion of elbow, right, Closed fracture of cuboid of right foot, Accidental fall Instructions: Bone Contusion, ED Fracture, Foot Prescriptions: New oxycodone-acetaminophen [Percocet] 5-325 mg tablet 1 tab PO Q6H PRN (Reason: pain) 3 Days Qty: 12 0RF No Action levothyroxine 100 MCG tablet 100 mcg PO DAILY Primary Care Provider: Sherin Navarrete Referrals: Sherin Navarrete MD [Primary Care Provider] - Farshad Delong DPM [Med Staff - Active Staff] - Activity Restrictions/Additional Instructions: Please wear your walking boot secondary to the avulsion fracture of your cuboid bone in the right foot. Follow-up podiatry to ensure there is no need for further intervention other than the walking boot. Continue ibuprofen and/or naproxen along with the Percocet for pain control. Return to the ER should you have any further concerns Print Language: Telugu Disposition Disposition: Home, Self Care Discharge Date/Time: 10/23/24 23:22
--- OUTSIDE RECORDS SUMMARY | 2024-10-23 23:13 | XMS RPT_ITS | CCD ---
Author Organization [facility] CliniSyid Care Team Providers Care Crop Production Advisor Name Role Phone Janie Navarrete MD Primary Care Provider DU MARIA, DR LIMA Primary Care Physician [phone] aJnie Navarrete MD Primary Care Provider MIO SANCHEZ MD Attending Unavailable DU MARIA, DR LIMA Primary Care Unavailable Janie Navarrete MD Primary Care Provider JANIE NAVARRETE Primary Care Unavailable Du MARIA, Dr. Janie Florentino Primary Care Provider Dr. Janie Navarrete MD Referring Provider Monaeem BLACK ASH BURNER OPERATOR-C, Konstantin Attending Provider [phone] MoroxannawKonstantin Attending Unavailable Janie Navarrete Referring Unavailable Janie Navarrete Primary Care Unavailable Dom Quintana Attending Unavailable Medications Current Medications Medication Drug Class(es) Dates Sig (Normalized) Sig (Original) acetaminophen 325 mg / HYDROcodone bitartrate 5 mg oral tablet (1 source) Opioid Agonist Start: 09-09-2022 End: 09-12-2022 take 1 tablet by mouth every six hours as needed for pain Flynn 325- 5 mg oral tablet Dose = 1 tab(s), Oral, q6h, PRN as needed for pain, # 12 tab(s), 0 Refill(s), Hamstring injury Start Date: 09/09/22 Stop Date: 09/12/22 Status: Ordered cyclobenzaprine hydrochloride 10 mg oral tablet (5 sources) Muscle Relaxant Start: 09-21-2022 take 1 tablet by mouth at bedtime as needed for pain cyclobenzaprine (FLEXERIL) 10 mg tablet Indications: Injury of right lower extremity, subsequent encounter , Right leg pain , Right hamstring injury, subsequent encounter Take 1 tablet by mouth at bedtime as needed for muscle spasm or pain. of leg 30 tablet 0 09/21/2022 Active Comment on above: Take 1 tablet by swetha at bedtime as needed for muscle spasm or pain. of leg ibuprofen 600 mg oral tablet (1 source) Nonsteroidal Anti-inflammatory Drug Start: 09-09-2022 ibuprofen 600 mg oral tablet Dose : 600 mg = 1 tab(s), Oral, QID, PRN as needed for pain, # 40 tab(s), 0 Refill(s) Start Date: 09/09/22 Status: Ordered levothyroxine sodium 0.1 mg oral tablet (17 sources) l-Thyroxine Start: 02-24-2020 End: 02-12-2021 take 1 tablet by mouth once daily Levothyroxine 100 MCG tablet Active 100 ug PO DAILY February 24, 2020 1:00am Comment on above: Take 1 tablet by swetha once daily. Take on empty stomach nitrofurantoin, macrocrystals 25 mg / nitrofurantoin, monohydrate 75 mg oral capsule (2 sources) Nitrofuran Antibacterial Start: 11-16-2023 End: 11-21-2023 take 1 capsule by mouth twice daily nitrofurantoin monohydrate and macrocrystal (MACROBID) 100 mg capsule Take 1 capsule by mouth two times a day for 5 days. 10 capsule 0 11/16/2023 11/21/2023 Active predniSONE 20 mg oral tablet (1 source) Start: 09-13-2021 End: 09-17-2021 take 2 tablets by mouth once daily predniSONE (DELTASONE) 20 mg tablet Take 2 tablets by mouth once daily for 4 days. 8 tablet 0 09/13/2021 09/17/2021 Active Comment on above: Take 2 tablets by mo [facility] once daily for 4 days. Completed/Discontinued Medications Medication Drug Class(es) Dates Sig (Normalized) Sig (Original) loratadine 10 mg oral tablet (4 sources) Start: 08-18-2016 End: 05-09-2017 take 2 tablets by mouth twice daily as needed Loratadine 10 MG tablet Discontinued 20 mg PO TWICE A DAY as needed for allergies August 18, 2016 12:00am May 09, 2017 5:25pm Start: 08-18-2016 End: 05-09-2017 take 20 mg by mouth twice daily Loratadine Discontinued 20 MG PO TWICE A DAY August 18, 2016 12:51pm May 09, 2017 5:25pm meloxicam 15 mg oral tablet (1 source) Nonsteroidal Anti-inflammatory Drug Start: 09-28-2020 End: 10-28-2020 take 1 tablet by mouth once daily for pain meloxicam (MOBIC) 15 mg tablet Take 1 tablet by mouth once daily. for pain. Take with food. 30 tablet 09/28/2020 10/28/2020 naproxen sodium 220 mg oral tablet (8 sources) Nonsteroidal Anti-inflammatory Drug End: 09-21-2022 take 1 tablet by mouth twice daily at mealtime naproxen sodium (ANAPROX) 220 mg tablet Take 220 mg by mouth twice daily with meals. 09/21/2022 Discontinued Comment on above: Take 220 mg by mouth twice daily with meals. oxyCODONE hydrochloride 5 mg oral tablet (4 sources) Opioid Agonist Start: 03-19-2020 End: 03-26-2020 take 1 tablet by mouth every six hours as needed for pain Oxycodone 5 MG tablet Discontinued 5 mg PO EVERY 6 HOURS NEEDED as needed for severe pain 20 7 0 March 19, 2020 March 25, 2020 1:00am March 26, 2020 1:03am Postoperative pain Other acute postprocedural pain Problems Active Problems Problem Classification Problem Date Documented Date Episodic/Chronic Deficiency and other anemia (13 sources) Anemia due to chronic blood loss; Translations: [Iron deficiency anemia secondary to blood loss (chronic)] Onset: 02-24-2020 02-24-2020 Chronic Disorders of lipid metabolism (13 sources) Hyperlipidemia; Translations: [Hyperlipidemia, unspecified] 07-05-2007 Chronic Genitourinary symptoms and ill-defined conditions (1 source) Dysuria; Translations: [Dysuria] 11-16-2023 Episodic Nonspecific chest pain (4 sources) Chest pain; Translations: [Chest pain, unspecified] 02-18-2021 Episodic Other and unspecified benign neoplasm (1 source) Lipoma of trunk; Translations: [Benign lipomatous neoplasm of skin and subcutaneous tissue of trunk] Episodic Other and unspecified benign neoplasm (1 source) Lipoma (clinical); Translations: [Benign lipomatous neoplasm, unspecified] Episodic Other injuries and conditions due to external causes (1 source) Injury of muscle and tendon at hip and thigh level; Translations: [Unspecified injury of muscle, fascia and tendon of the posterior muscle group at thigh level, unspecified thigh, initial encounter] Onset: 09-09-2022 Episodic Other lower respiratory disease (4 sources) Cough; Translations: [Cough] 09-29-2021 Episodic Other nervous system disorders (1 source) Abnormal sensation; Translations: [Other disturbances of skin sensation] Episodic Other non-traumatic joint disorders (1 source) Effusion of right knee joint; Translations: [Effusion, right knee] 09-28-2020 Episodic Other nutritional; endocrine; and metabolic disorders (13 sources) Obesity; Translations: [Obesity, unspecified] 06-21-2007 Chronic Other screening for suspected conditions (not mental disorders or infectious disease) (7 sources) Patient encounter status; Translations: [Encounter for screening mammogram for malignant neoplasm of breast] Episodic Other upper respiratory disease (13 sources) Allergic rhinitis; Translations: [Allergic rhinitis, unspecified] 06-21-2007 Chronic Other upper respiratory infections (5 sources) Sore throat symptom; Translations: [Acute pharyngitis, unspecified] Episodic Residual codes; unclassified (4 sources) Noncompliance with medication regimen; Translations: [Patient's other noncompliance with medication regimen] 02-10-2021 Episodic Residual codes; unclassified (1 source) H/O: neoplasm; Translations: [Other specified postprocedural states] Episodic Sprains and strains (3 sources) Hamstring injury; Translations: [Strain of muscle, fascia and tendon of the posterior muscle group at thigh level, unspecified thigh, initial encounter] 09-17-2022 Episodic Thyroid disorders (18 sources) Hypothyroidism; Translations: [Hypothyroidism, unspecified] 01-02-2017 Chronic Past or Other Problems Problem Classification Problem Date Documented Da te Episodic/Chronic Benign neoplasm of uterus (13 sources) Intramural leiomyoma of uterus; Translations: [Intramural leiomyoma of uterus] Onset: 01-15-2017 01-15-2017 Episodic Gastritis and duodenitis (13 sources) Acute gastritis; Translations: [Acute gastritis without bleeding] Onset: 12-30-2007 12-30-2007 Episodic Other connective tissue disease (13 sources) Lateral epicondylitis; Translations: [Lateral epicondylitis, unspecified elbow] Onset: 08-30-2010 08-30-2010 Episodic Results Test Name Value Interpretation Reference Range Facility Urgent Care Visit Reporton 0 10-16-2024 Urgent Care Visit Report [facility] [address], [address] [place] [address] OFFICE VISIT Date of Service: 10/16/24 MR#: [id number] Acct: [id number] Name: NKECHI MON Rep #: [id number] : 1965 Provider: ROSELINE Green Age/Sex: 59/F Location: [facility] Status: Signed Intake Vital Signs 09/17/22 12:56 Height 5 ft 2 in Intake Visit Reasons: PE 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 PFSH Family History Other CVA (cerebral vascular accident) Cancer Social History Smoking Status: Never smoker alcohol intake: never HPI HPI Details: NKECHI MON, is a 59 F who presents to the office today for Office Procedures Physical Exam Coding PE Coding Pre-employment PE: Yes Coding Level of Care Code Attention Ict Analyst Diagnoses Physical exam, pre-employment Z02.1 Assessment and Plan Assessment and Plan (1) Physical exam, pre-employment: Status: Acute 10/17/24827 Date Dom Mcdonaldigncurtis Signature: Date (if applicable) CC: [facility] NKECHI MON ([id number]) 1965 F Date Time Provider Department 11/18/23 GUILLAUME ALONSO [facility] During your visit today, we recorded the following information about you: Guillaume Alonso, PA 11/18/2023 8:33 AM Signed Please let patient know urine culture revealed mixed bacterial growth. She may continue antibiotic if it is helping. If symptoms are persisting, needs to follow-up with PCP for repeat urine culture Pepper Johansen LPN 11/18/2023 8:44 AM Signed Patient given results and verbalized understanding of instructions given. Pepper Johansen LPN Allergies As of Date: 11/18/2023 (No Known Allergies) Date Reviewed: 11/16/2023 Reviewed by: Pepper Johansen LPN - Fully Assessed Reason for Visit: Results [95] Prescriptions as of 11/18/2023 - nitrofurantoin monohydrate and macrocrystal (MACROBID) 100 mg capsule Take 1 capsule by mouth two times a day for 5 days. - cyclobenzaprine (FLEXERIL) 10 mg tablet Take 1 tablet by mouth at bedtime as needed for muscle spasm or pain. of leg - levothyroxine (SYNTHROID) 100 mcg tablet Take 1 tablet by mouth once daily. Take on empty stomach Problem List As Of Date 11/18/2023 Noted Resolved HYPERLIPIDEMIA NEC/NOS [E78.5] Hypothyroidism [E03.9] OBESITY NOS [E66.9] ALLERGIC RHINITIS NOS [J30.9] ACUTE GASTRITIS W/O HEMORRHAGE [K29.00] 12/30/2007 Lateral epicondylitis of elbow [M77.10] 08/30/2010 Intramural leiomyoma of uterus [D25.1] 01/15/2017 Anemia due to chronic blood loss [D50.0] 02/24/2020 Encounter Status:Closed by PEPPER JOHANSEN on 11/18/23 Normal [facility] Bacteria Ur Culton 4 Bacteria identified Cx Nom (U) ORGANISM ID: 1 >=100,000 CFU/ml Mixed microbiota No further workup. Mixed microbiota can be due to???urine???contamin ation with skin bacteria at time of collection or presence of a long-term urinary catheter. If a new culture is needed, please consider re-education of the patient on proper midstream co llection technique or straight catheterization for???urine???collect ion. Normal [facility] Comment on above: Performed By: #### 6 30-4 #### [facility] CLIA [id number] [address] [place] [address] CNOVon 11-16-2023 CNOV Office Visit (UCWSTR ) NKECHI MON Ky ([id number]) 1965 F Date Time Provider Department 11/16/23 6:30 PM FELIPA CERNA [facility] During your visit today, we recorded the following information about you: Temperature Pulse Respiration Blood pressure 98.7 degrees 97/minute 18/minute 136/87 Weight 76 kg Felipa Cerna APRN.INSURANCE LEGAL ASSISTANT 11/16/2023 6:58 PM Signed This note was created using NoteWriter. Subjective Nkechi Mon is a 58 year old female. 58 year old female with PMH thyroid presents for possible UTI. Acute onset one month ago +burning +frequency +urgency Denies vaginal discharge Denies vaginal bleeding Denies abdominal pain Denies flank pain Denies N/V/D States that she has been taking care of her mother and her reason for delayed care. The history is provided by the patient. No cutter and edge trimmer was used. UTI This is a new problem. The current episode started more than 1 week ago. The problem occurs every urination. The problem has been gradually worsening. The quality of the pain is described as burning. The pain is at a severity of 5/10. There has been no fever. She is Not sexually active. Associated symptoms include frequency and urgency. Pertinent negatives include no chills, no sweats, no nausea, no vomiting, no discharge, no hematuria, no hesitancy, no possible and no flank pain. She has tried nothing for the symptoms. Her past medical history does not include kidney stones, single kidney, urological procedure, recurrent UTIs, urinary stasis or catheterization. PAST MEDICAL HISTORY No date: Acute gastritis without mention of hemorrhage No date: Allergic rhinitis, cause unspecified 04/16/2002: Esophageal reflux No date: History of transfusion No date: Other and unspecified hyperlipidemia 04/16/1995: Unspecified hypothyroidism PAST SURGICAL HISTORY 12/30/2007: EGD TRANSORAL BIOPSY SINGLE/MULTIPLE 2017: ENDOMETRIAL ABLTJ THERMAL W/O HYSTEROSCOPIC GUID Comment: Amy 11/01/2010: LEEP PROCEDURE (MICRO PALEONTOLOGIST DEPT)_*[place] Comment: LEWIS 2 01/23/2022: SKIN EXCISION Comment: excision lipoma back No date: VAGINAL HYSTERECTOMY 03/18/2020: VAGINAL HYSTERECTOMY UTERUS 250 GM/< Comment: LAVH, bilateral salpingectomy and cystoscopy at [facility] Patient has no known allergies. MEDICATIONS cyclobenzaprine (FLEXERIL) 10 mg tablet Take 1 tablet by mouth at bedtime as needed for muscle spasm or pain. of leg (Patient not taking: Reported on 11/16/2023) levothyroxine (SYNTHROID) 100 mcg tablet Take 1 tablet by mouth once daily. Take on empty stomach (Patient not taking: Reported on 11/16/2023) FAMILY HISTORY Problem Relation Age of Onset Stroke Mother other (rheumatoid arthritis) Mother Cancer Father 69 Melanoma/bone cancer Heart Maternal Grandmother Diabetes Maternal Grandmother Cancer Maternal Grandfather pancreatic CA Cancer Paternal Grandmother spine other (Other) Paternal Grandfather appendix burst Social History Tobacco Use Smoking status: Never Smokeless tobacco: Never Vaping Use Vaping Use: Never used Substance Use Topics Alcohol use: No Drug use: No Review of Systems Constitutional: Negative for chills, fatigue and fever. Eyes: Negative for pain, discharge, redness and itching. Respiratory: Negative for apnea, cough, choking, chest tightness and shortness of breath. Cardiovascular: Negative for chest pain, palpitations and leg swelling. Gastrointestinal: Negative for abdominal pain, nausea and vomiting. Genitourinary: Positive for dysuria, frequency and urgency. Negative for flank pain, hematuria and hesitancy. Musculoskeletal: Negative for back pain. Skin: Negative for color change, pallor, rash and wound. Allergic/Immunologic: Negative for environmental allergies, food allergies and immunocompromised state. Neurological: Negative for dizziness, facial asymmetry, light-headedness and headaches. Hematological: Negative for adenopathy. Does not bruise/bleed easily. Psychiatric/Behaviora l: Negative for agitation and behavioral problems. Objective BP 136/87 Pulse 97 Temp 37.1 ?C (98.7 ?F) Resp 18 Wt 76 kg (167 lb 8.8 oz) LMP 02/03/2020 SpO2 97% BMI 30.65 kg/m? Physical Exam Vitals and nursing note reviewed. Constitutional: General: She is not in acute distress. Appearance: Normal appearance. She is normal weight. She is not ill-appearing, toxic-appearing or diaphoretic. HENT: Head: Normocephalic and atraumatic. Right Ear: Ear canal and external ear normal. Left Ear: Ear canal and external ear normal. Nose: Nose normal. No congestion or rhinorrhea. Mouth/Throat: Mouth: Mucous membranes are moist. Pharynx: No oropharyngeal exudate or posterior oropharyngeal erythema. Eyes: General: Right eye: No discharge. Left eye: No discharge. Extraocular Movements: Extraocular movements intact. (more content not included)... Normal [facility] UA DIP, URINE (POC)on 2023 BILIRUBIN UA (POCT) Small Abnormal Negative [facility] CLARITY UA (POCT) Cloudy [facility] COLOR UA (POCT) Dark yellow [facility] GLUCOSE UA (POCT) Negative Negative mg/dL [facility] Hemoglobin Ql (U) Trace-intact Abnormal Negative [facility] Interpretation and review of laboratory results Abnormal [facility] KETONE UA (POCT) Negative Negative mg/dL [facility] LEUKOCYTES UA (POCT) Small Abnormal Negative [facility] NITRITE UA (POCT) Negative Negative [facility] PH UA (POCT) 5.5 4.5 - 8.0 [facility] Protein Ql (U) 30 mg/dL Abnormal Negative [facility] SPECIFIC GRAVITY UA (POCT) >=1.030 1.005 - 1.030 [facility] UROBILINOGEN UA (POCT) 2.0 Abnormal Normal E.U./dL [facility] Location:[facility], [address] [place] [address], [place], [place], [id number] [place] [address] POINT OF CARE [facility] XR FEMUR MINIMUM 2 VIEWS RIG HTon 09-09-2022 XR FEMUR MINIMUM 2 VIEWS RIGHT ORIGINAL EXAMINATION: TWO XRAY VIEWS OF THE RIGHT FEMUR 09/09/2022 2:06 pm COMPARISON: None. HISTORY: ORDERING SYSTEM PROVIDED HISTORY: Reason for Exam: pain FINDINGS: No acute fracture or dislocation. Normal osseous mineralization. No visible aggressive osseous lesions. The visible pelvic ring and sacrum are intact with portions of the sacrum obscured due to overlying bowel. No significant degenerative changes of the included sacroiliac joints, pubic symphysis, or right hip. Moderate medial compartment joint space narrowing of the knee. Mild lateral compartment joint space narrowing of the knee. At least mild patellofemoral compartment degenerative changes of the knee. No definite knee effusion. IMPRESSION: 1. No acute fracture or dislocation. 2. Degenerative changes of the knee. Interpreted by: Kolby Smith DO Preliminary Report By: oKlby Smith DO Electronically signed By Kolby Smith DO Dictated Date: 09/09/2022 2:14:39 PM Prelim Date: 09/09/2022 2:15:57 PM Sign Date: 09/09/2022 2:15:57 PM Ordering Provider: MIO Hussein [facility] ([place]) STREP A MOLECULAR (POC)on Procedural Control Valid [facility] Strep A (POCT) Negative Negative [facility] XR Knee - right 4 Viewson IMPRESSION: Moderate joint effusion of the right knee. Clay Pigeon Loader: JEYSON Transcribe Date/Time: Sep 28 2020 12:38P Dictated by : MARGARITA ANTONIO MD This examination was interpreted and the report reviewed and electronically signed by: MARGARITA ANTONIO MD on Sep 28 2020 12:40PM [facility] DIVISION OF RADIOLOGY * * *Final Report* * * DATE OF EXAM: Sep 28 2020 11:59AM WOX [id number] - XR KNEE 4V AP/PA BOTH+LAT/BERTO RT / PROCEDURE REASON: Effusion of right knee * * * * Physician Interpretation * * * * EXAM TITLE: XR KNEE 4V AP/PA BOTH+LAT/BERTO RT EXAM DATE/TIME: 09/28/2020 11:59 AM COMPARISON: None. CLINICAL INDICATION/HISTORY: Effusion. TECHNIQUE: AP/PA, lateral and sunrise views of the right knee are presented. FINDINGS: No fractures or subluxations are noted. The joint spaces are maintained. No significant osteophyte formation. There is a moderate joint effusion. The mineralization of the bones is normal. No obvious soft tissue swelling. [facility] * * *Final Report* * * DATE OF EXAM: Sep 28 2020 11:59AM WOX 5203 - XR KNEE 4V AP/PA BOTH+LAT/BERTO RT / PROCEDURE REASON: Effusion of right knee * * * * Physician Interpretation * * * * EXAM TITLE: XR KNEE 4V AP/PA BOTH+LAT/BERTO RT EXAM DATE/TIME: 09/28/2020 11:59 AM COMPARISON: None. CLINICAL INDICATION/HISTORY: Effusion. TECHNIQUE: AP/PA, lateral and sunrise views of the right knee are presented. FINDINGS: No fractures or subluxations are noted. The joint spaces are maintained. No significant osteophyte formation. There is a moderate joint effusion. The mineralization of the bones is normal. No obvious soft tissue swelling. IMPRESSION IMPRESSION: Moderate joint effusion of the right knee. Clay Pigeon Loader: JEYSON Transcribe Date/Time: Sep 28 2020 12:38P Dictated by : MARGARITA ANTONIO MD This examination was interpreted and the report reviewed and electronically signed by: MARGARITA ANTONIO MD on Sep 28 2020 12:40PM EST [facility] Radiology Study observation (narrative) [facility] XR Knee - right 4 ViewsOrder ed By: [facility] Provider on 09-28-2020 [facility] Vital Signs Date Time Vital Sign Value Performing Clinician Facility 11-16-2023 18:32-0400 Body mass index (BMI) [Ratio] 30.65 kg/m2 Felipa Cerna APRN.INSURANCE LEGAL ASSISTANT Work Phone: [facility] 11-16-2023 18:32-0400 Body temperature 98.71 [degF] Felipa Cerna APRN.INSURANCE LEGAL ASSISTANT Work Phone: [facility] 11-16-2023 18:32-0400 Body weight 76 kg Felipa Cerna SALOON KEEPER.INSURANCE LEGAL ASSISTANT Work Phone: [facility] 11-16-2023 18:32-0400 Diastolic blood pressure 87 mm[Hg] Felipa Cerna SALOON KEEPER.INSURANCE LEGAL ASSISTANT Work Phone: [facility] 11-16-2023 18:32-0400 Heart rate 97 /min Felipa Cerna SALOON KEEPER.INSURANCE LEGAL ASSISTANT Work Phone: [facility] 11-16-2023 18:32-0400 Respiratory rate 18 /min Felipa Cerna SALOON KEEPER.INSURANCE LEGAL ASSISTANT Work Phone: [facility] 11-16-2023 18:32-0400 SaO2% (BldA) [Mass fraction] 97 % Felipa Cerna SALOON KEEPER.INSURANCE LEGAL ASSISTANT Work Phone: [facility] 11-16-2023 18:32-0400 Systolic blood pressure 136 mm[Hg] Felipa Cerna SALOON KEEPER.INSURANCE LEGAL ASSISTANT Work Phone: [facility] 09-17-2022 12:56-0400 Body height 157.48 cm [facility] 09-17-2022 12:56-0400 Body mass index (BMI) [Ratio] 31.4 kg/m2 [facility] 09-17-2022 12:56-0400 Body temperature 96.3 [degF] [facility] 09-17-2022 12:56-0400 Body weight 78.1 kg [facility] 09-17-2022 12:56-0400 Diastolic blood pressure 92 mm[Hg] [facility] 09-17-2022 12:56-0400 Heart rate 72 /min [facility] 09-17-2022 12:56-0400 Respiratory rate 18 /min [facility] 09-17-2022 12:56-0400 SaO2% (BldA) [Mass fraction] 97 % [facility] 09-17-2022 12:56-0400 Systolic blood pressure 140 mm[Hg] [facility] 09-09-2022 15:49-0400 Diastolic Blood Pressure Non-Invasive 75 1 MIO SACNHEZ MD [facility] 09-09-2022 15:49-0400 Heart rate 60 /min MIO SANCHEZ MD [facility] 09-09-2022 15:49-0400 Mean blood pressure 86 mm[Hg] MIO SANCHEZ MD [facility] 09-09-2022 15:49-0400 Respiratory rate 16 /min MIO SANCHEZ MD [facility] 09-09-2022 15:49-0400 Systolic Blood Pressure Non-Invasive 107 1 MIO SANCHEZ MD [facility] 09-09-2022 14:30-0400 Diastolic Blood Pressure Non-Invasive 75 1 MIO SANCHEZ MD [facility] 09-09-2022 14:30-0400 Heart rate 62 /min MIO SANCHEZ MD [facility] 09-09-2022 14:30-0400 Mean blood pressure 86 mm[Hg] MIO SANCHEZ MD [facility] 09-09-2022 14:30-0400 Reason For Taking VItal Signs MIO SANCHEZ MD [facility] 09-09-2022 14:30-0400 Respiratory rate 16 /min MIO SANCHEZ MD [facility] 09-09-2022 14:30-0400 Systolic Blood Pressure Non-Invasive 108 1 MIO SANCHEZ MD [facility] 09-09-2022 13:37-0400 Blood Pressure Location MIO SANCHEZ MD [facility] 09-09-2022 13:37-0400 Body temperature 98.42 [degF] MIO SANCHEZ MD [facility] 09-09-2022 13:37-0400 Diastolic Blood Pressure Non-Invasive 72 1 MIO SANCHEZ MD [facility] 09-09-2022 13:37-0400 Heart rate 70 /min MIO SANCHEZ MD [facility] 09-09-2022 13:37-0400 Respiratory rate 16 /min MIO SANCHEZ MD [facility] 09-09-2022 13:37-0400 Systolic Blood Pressure Non-Invasive 133 1 MIO SANCHEZ MD [facility] 01-30-2022 16:02-0400 Body height 157.5 cm Norma Kurtz MD Work Phone: [facility] 01-30-2022 16:02-0400 Body temperature 98.1 [degF] Norma Kurtz MD Work Phone: [facility] 01-30-2022 16:02-0400 Body weight 80.74 kg Norma Kurtz MD Work Phone: [facility] 01-30-2022 16:02-0400 Diastolic blood pressure 84 mm[Hg] Norma Kurtz MD Work Phone: [facility] 01-30-2022 16:02-0400 Heart rate 96 /min Norma Kurtz MD Work Phone: [facility] 01-30-2022 16:02-0400 Respiratory rate 14 /min Norma Kurtz MD Work Phone: [facility] 01-30-2022 16:02-0400 SaO2% (BldA) [Mass fraction] 98 % Norma Kurtz MD Work Phone: [facility] 01-30-2022 16:02-0400 Systolic blood pressure 120 mm[Hg] Norma Kurtz MD Work Phone: [facility] 01-23-2022 14:16-0400 Diastolic blood pressure 62 mm[Hg] Norma Kurtz MD Work Phone: [facility] 01-23-2022 14:16-0400 Heart rate 72 /min Norma Kurtz MD Work Phone: [facility] 01-23-2022 14:16-0400 Respiratory rate 16 /min Norma Kurtz MD Work Phone: [facility] 01-23-2022 14:16-0400 SaO2% (BldA) [Mass fraction] 99 % Norma Kurtz MD Work Phone: [facility] 01-23-2022 14:16-0400 Systolic blood pressure 125 mm[Hg] Norma Kurtz MD Work Phone: [facility] 01-23-2022 13:08-0400 Body temperature 97.39 [degF] Norma Kurtz MD Work Phone: [facility] 01-23-2022 13:08-0400 Body weight 82.6 kg Norma Kurtz MD Work Phone: [facility] 12-28-2021 14:49-0400 Body height 157.5 cm Norma Kurtz MD Work Phone: [facility] 12-28-2021 14:49-0400 Body temperature 97.59 [degF] Norma Kurtz MD Work Phone: [facility] 12-28-2021 14:49-0400 Body weight 82.56 kg Norma Kurtz MD Work Phone: [facility] 12-28-2021 14:49-0400 Heart rate 86 /min Norma Kurtz MD Work Phone: [facility] 12-28-2021 14:49-0400 SaO2% (BldA) [Mass fraction] 100 % Norma Kurtz MD Work Phone: [facility] 09-21-2021 18:38-0400 Diastolic blood pressure 80 mm[Hg] [facility] Work Phone: 09-21-2021 18:38-0400 Heart rate 76 /min [facility] Work Phone: 09-21-2021 18:38-0400 Respiratory rate 12 /min [facility] Work Phone: 09-21-2021 18:38-0400 Systolic blood pressure 160 mm[Hg] [facility] Work Phone: 09-21-2021 17:37-0400 Body height 157.48 cm [facility] Work Phone: 09-21-2021 17:37-0400 Body mass index (BMI) [Ratio] 32 kg/m2 [facility] Work Phone: 09-21-2021 17:37-0400 Body temperature 97.1 [degF] [facility] Work Phone: 09-21-2021 17:37-0400 Body weight 79.4 kg [facility] Work Phone: 09-21-2021 17:37-0400 SaO2% (BldA) [Mass fraction] 97 % [facility] Work Phone: 09-13-2021 16:47-0400 Body temperature 98.71 [degF] Irena Bowman APRN.INSURANCE LEGAL ASSISTANT Work Phone: [facility] 09-13-2021 16:47-0400 Body weight 79.83 kg Irena Bowman APRN.INSURANCE LEGAL ASSISTANT Work Phone: [facility] 09-13-2021 16:47-0400 Diastolic blood pressure 72 mm[Hg] Irena Bowman APRN.INSURANCE LEGAL ASSISTANT Work Phone: [facility] 09-13-2021 16:47-0400 Heart rate 76 /min Irena Bowman APRN.INSURANCE LEGAL ASSISTANT Work Phone: [facility] 09-13-2021 16:47-0400 Respiratory rate 16 /min Irena Bowman APRN.INSURANCE LEGAL ASSISTANT Work Phone: [facility] 09-13-2021 16:47-0400 SaO2% (BldA) [Mass fraction] 98 % Irena Bowman APRN.INSURANCE LEGAL ASSISTANT Work Phone: [facility] 09-13-2021 16:47-0400 Systolic blood pressure 124 mm[Hg] Irena Bowman APRN.INSURANCE LEGAL ASSISTANT Work Phone: [facility] Encounters Encounter Date Encounter Type Care Provider Facility Start: 10-16-2024 End: 10-16-2024 Patient encounter procedure Konstantin Alfaro BLACK ASH BURNER OPERATOR-C [facility] Work Phone: Start: 10-16-2024 End: 10-16-[address] Janie Navarrete MD Work Phone: [facility] Start: 11-18-2023 Telephone encounter Guillaume DUKES Work Phone: [facility] Comment on above: Results Start: 11-16-2023 End: 11-16-2023 ambulatory JANIE NAVARRETE Facility:[facility] Start: 11-16-2023 End: 11-16-2023 Patient encounter procedure Felipa Cerna SALOON KEEPER.INSURANCE LEGAL ASSISTANT Work Phone: [facility] Comment on above: Dysuria (Primary Dx) Start: 07-25-2023 ambulatory Janie carty MD Work Phone: [facility] [place] Start: 12-29-2022 Refill Janie carty MD Work Phone: [facility] [place] Comment on above: Refill Request Start: 12-19-2022 ambulatory Janie carty MD Work Phone: [facility] [place] Comment on above: YEARLY TESTING Start: 09-18-2022 ambulatory Janie carty MD Work Phone: [facility] [place] Comment on above: Hamstring Injury Start: 09-17-2022 End: 09-17-2022 Emergency department patient visit [facility] Start: 09-09-2022 End: 09-09-2022 Emergency department patient visit MIO SANCHEZ MD Facility:[facility] Start: 09-09-2022 End: 09-09-2022 Emergency department patient visit MIO SANCHEZ MD [facility] Start: 08-16-2022 ambulatory Janie carty MD Work Phone: [facility] Start: 01-30-2022 End: 01-30-2022 Patient encounter procedure Norma Kurtz MD Work Phone: General Surgery Comment on above: Status post excision of lipoma (Primary Dx) Start: 01-23-2022 End: 01-23-2022 Subsequent hospital visit by physician Norma Kurtz MD Work Phone: Ambulatory Surgery Comment on above: Lipoma of unspecifie d site [D17.9] Start: 12-28-2021 End: 12-28-2021 Patient encounter procedure Norma Kurtz MD Work Phone: General Surgery Comment on above: Lipoma of torso (Farideh shanna Dx); Dysesthesia Start: 09-21-2021 End: 09-21-2021 [facility] Start: 09-14-2021 ambulatory Janie carty MD Work Phone: [facility] Start: 09-13-2021 End: 09-13-2021 Patient encounter procedure Irena Bowman APRN.INSURANCE LEGAL ASSISTANT Work Phone: [facility] Comment on above: Sore throat (Primary Dx) Start: 09-28-2020 End: 09-28-2020 Subsequent hospital visit by physician [facility] Work Phone: Radiology Comment on above: Effusion of right kn ee [M25.461] Procedures Date Procedure Procedure Detail Performing Clinician Start: 11-16-2023 Urnls dip stick/tabl et rgnt auto w/o microscopy Guillaume DUKES Work Phone: Start: 01-23-2022 End: 01-23-2022 Exc b9 lesion mrgn xcp sk tg t/a/l >4.0 cm Norma Kurtz MD Work Phone: Start: 09-21-2021 Plain chest X-ray Start: 09-21-2021 End: 09-21-2021 Viral antigen assay Start: 09-13-2021 STREP A MOLECULAR (POC) Irena Bowman APRN.INSURANCE LEGAL ASSISTANT Work Phone: Start: 09-28-2020 Radiologic exam knee complete 4/more views Faith Edison EMERSONFUSE CUP EXPANDER Work Phone: Start: 09-28-2020 Adult depression scr eening assessment Irena Bowman APRN.INSURANCE LEGAL ASSISTANT Work Phone: Start: 08-30-2016 Mammography Irena Bowman APRN.INSURANCE LEGAL ASSISTANT Work Phone: Start: 07-05-2007 Lipid 1996 panel - S darby or Plasma Janie Navarrete MD Work Phone: Plan of Treatment Date Care Activity Detail Author Start: 12-16-2023 Covid-19 Vaccine ( season) Covid-19 Vaccine ( season) [facility] Start: 12-16-2023 Influenza vaccination C [facility] Start: 04-16-2023 Behavioral Health Screening Behavioral Health Screening [facility] Start: 12-29-2022 End: 02-28-2023 CBC panel - Blood by Automated count CBC Lab Routine 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 Expected: 12/29/2022, Expires: 02/28/2023 [facility] Work Phone: Comment on above: Expected: 12/29/2022 , Expires: 02/28/2023 Start: 12-29-2022 End: 02-28-2023 Comprehensive metabolic 2000 panel - Serum or Plasma COMP METABOLIC PANEL Lab Routine 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 Expected: 12/29/2022, Expires: 02/28/2023 [facility] Work Phone: Comment on above: Expected: 12/29/2022 , Expires: 02/28/2023 Start: 12-29-2022 End: 02-28-2023 Thyrotropin [Units/volume] in Serum or Plasma TSH BLD Lab Routine 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 Expected: 12/29/2022, Expires: 02/28/2023 [facility] Work Phone: Comment on above: Expected: 12/29/2022 , Expires: 02/28/2023 Start: 12-29-2022 End: 02-28-2023 Thyroxine (T4) free [Mass/volume] in Serum or Plasma T4 FREE/FREE THYROX Lab Routine 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 Expected: 12/29/2022, Expires: 02/28/2023 [facility] Work Phone: Comment on above: Expected: 12/29/2022 , Expires: 02/28/2023 Start: 12-29-2022 End: 02-28-2023 Triiodothyronine (T3) Free [Mass/volume] in Serum or Plasma T3 FREE BLD Lab Routine 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 Expected: 12/29/2022, Expires: 02/28/2023 [facility] Work Phone: Comment on above: Expected: 12/29/2022 , Expires: 02/28/2023 Start: 12-15-2022 Covid-19 Vaccine ( season) Covid-19 Vaccine ( season) [facility] Start: 12-15-2022 Influenza vaccination [facility] Start: 04-16-2022 DEPRESSION ASSESSMENT DEPRESSION ASS ESSMENT [facility] Start: 02-12-2022 ANNUAL PCP TEAM CUTTER AND EDGE TRIMMER [place] DISEASE VISIT ANNUAL PCP TEAM CHRONIC DISEASE VISIT [facility] Start: 12-15-2021 Influenza vaccination C [facility] Start: 09-28-2021 Adult depression scr eening assessment DEPRESSION SCREENING [facility] Start: 09-28-2021 COLORECTAL CANCER SCREENING COLORECTAL CANCER SCREENING [facility] Comment on above: Postponed from 03/22 (Declined at this time) Start: 09-28-2021 COVID-19 VACCINE (#1) COVID-19 VACCI NE (#1) [facility] Comment on above: Postponed from 03/22 (Declined at this time) Start: 09-28-2021 HEPATITIS C SCREENING HEPATITIS C [facility] Comment on above: Postponed from 03/22 (Declined at this time) Start: 09-28-2021 HIV SCREENING HIV SCREENING [facility] Comment on above: Postponed from 03/22 (Declined at this time) Start: 09-06-2021 DIABETES SCREEN DIABETES SCREEN [facility] Start: 09-06-2021 Diabetes Screening Diabetes Screenin g [facility] Start: 07-06-2021 HPV TESTING HPV TESTING [facility] Start: 07-06-2021 PAP TESTING PAP TESTING [facility] Start: 07-06-2021 Screening for malign ant neoplasm of cervix [facility] Start: 04-16-2021 DEPRESSION ASSESSMENT DEPRESSION ASS ESSMENT [facility] Start: 08-30-2017 Mammography [facility] Start: 08-30-2017 Screening for malign ant neoplasm of breast Mammogram Screening [facility] Start: 2017 SHINGRIX VACCINE (1 of 2) DOWD GRIX VACCINE (1 of 2) [facility] Start: 03-04-2014 Urine microalbumin profile [facility] Start: 07-04-2012 Lipid 1996 panel - S darby or Plasma Lipid Screening [facility] Start: 07-04-2012 Lipid panel Lipid Screening [facility] Start: 07-04-2012 LIPID SCREEN LIPID SCREEN [facility] Start: 2012 COLOGUARD (FIT-DNA) COLOGUARD (FIT-D NA) [facility] Start: 2012 Colonoscopy COLONOSCOPY [facility] Start: 2012 COLORECTAL CANCER SCREENING COLORECTAL CANCER SCREENING [facility] Start: [address] COLONOGRAPHY [facility] Start: 2012 FECAL OCCULT BLOOD FECAL OCCULT BLOO D [facility] Start: 2012 Screening for malign ant neoplasm of colon [facility] Start: 2012 SIGMOIDOSCOPY SIGMOIDOSCOPY [facility] Start: 1986 Hepatitis B Vaccine (1 of 3 - 19+ 3-dose series) Hepatitis B Vaccine (1 of 3 - 19+ 3-dose series) [facility] Start: 1985 Anxiety Screening Anxiety Screening [facility] Start: 1985 Depression Screening Depression Scre ening [facility] Start: 1985 [facility] Start: 1985 Hepatitis C screening Hepatitis C [facility] Start: 1985 HIV SCREENING HIV SCREENING [facility] Start: 1985 HIV screening HIV Screening [facility] Start: 1967 COVID-19 VACCINE (#1) COVID-19 VACCI NE (#1) [facility] Start: 1967 HEPATITIS B (1 of 3 - 3-dose series) HEPATITIS B (1 of 3 - 3-dose series) [facility] Start: 1967 Hepatitis B Vaccine (1 of 3 - 3-dose series) Hepatitis B Vaccine (1 of 3 - 3-dose series) [facility] Bacteria identified in Urine by Culture URINE CULTURE Microbiology Routine Dysuria Ordered: 11/16/2023 [facility] Work Phone: Comment on above: Ordered: 11/16/2023 End: 09-15-2023 NILDA SCREENING NILDA SCREENING Radiology Routine Encounter for screening mammogram for breast cancer 1 Occurrences starting 08/16/2022 until 09/15/2023 [facility] Work Phone: Comment on above: 1 Occurrences starti ng 08/16/2022 until 09/15/2023 End: 08-23-2024 MG Breast Screening NILDA SCREENING Radiology Routine Encounter for screening mammogram for breast cancer 1 Occurrences starting 07/25/2023 until 08/23/2024 [facility] Work Phone: Comment on above: 1 Occurrences starti ng 07/25/2023 until 08/23/2024 Patient Education [facility] Work Phone: Patient referral [facility] Work Phone: End: 10-14-2022 Screening mammography bi 2-view breast inc cad NILDA SCREENING Radiology Routine Encounter for screening mammogram for breast cancer 1 Occurrences starting 09/14/2021 until 10/14/2022 [facility] Work Phone: Comment on above: 1 Occurrences starti ng 09/14/2021 until 10/14/2022 SURGICAL PATHOLOGY [facility] Work Phone: Comment on above: Release Upon [place] bruner for 1 [facility]ur[facility] Immunizations Immunization Date Immunization Notes Care Provider [place] cannon 06-20-2016 influenza virus vaccine, unspecified formulation Janie Navarrete MD Work Phone: [facility] 03-03-2014 TD(adult) unspecifie d formulation Irena Bowman APRN.INSURANCE LEGAL ASSISTANT Work Phone: [facility] Work Phone: 03-03-2014 tetanus and diphther ia toxoids, adsorbed, preservative free, for adult use (2 Lf of tetanus toxoid and 2 Lf of diphtheria toxoid) Irena Bowman APRN.INSURANCE LEGAL ASSISTANT Work Phone: [facility] Work Phone: Payers Date Payer Category Payer Self-pay [id number] 2019 Medicaid [facility] MED[facility] [employer] MEDICAID [id number] 2019-Present [phone] [address] [place] [address] Medicaid [id number] 2019 Medicaid [id number] 2016 Unknown SELF PAY INSURANCE [id number] 2016 Unknown [id number] 1967 Unknown [id number] Unknown [id number] Unknown [id number] Social History Date Type Detail Facility Start: 01-23-2022 End: 09-17-2022 Tobacco smoking status NHIS Never smoked tobacco [facility] Work Phone: Start: 09-28-2020 End: 09-13-2021 Alcohol intake Current non-drinker of alcohol (finding) [facility] Start: 1965 Sex Assigned At Not on file C [facility] Start: 08-28-2020 End: 01-30-2022 Exposure to SARS-CoV-2 (event) Not sure [facility] Work Phone: Start: 09-21-2021 End: 09-17-2022 Tobacco smoking status NHIS Unknown if ever smoked [facility] Start: 03-18-2020 Non-smoker [facility] Start: 1965 Sex Assigned At Female A [facility] Start: 01-23-2022 Tobacco use and exposure Smokeless tobacco non-user [facility] Tobacco smoking status No Smokin g Status Entered [facility] Start: 2020 End: 09-21-2022 History of Social function [facility] Start: 2020 End: 09-21-2022 Social connection and isolation panel [facility] In a typical week, h ow many times do you talk on the telephone with family, friends, or neighbors? Patient refused [facility] Are you now , , , , never or living with a partner? [facility]used [facility] (I/We) worried whelindsey er (my/our) food would run out before (I/we) got money to buy more. DK or Refused [facility] In the past 12 month s, was there a time when you were not able to pay the mortgage or rent on time? No [facility] Medical Equipment Procedure Code Equipment Code Equipment Origin al Text Equipment Identifier Dates Laparoscopic abdominal hysterectomy CALOS 3GRM HEMOSTAT ABS FDA Start: 03-18-2020 Laparoscopic abdominal hysterectomy CALOS 3GRM HEMOSTAT ABS FDA Start: 03-18-2020 Laparoscopic abdominal hysterectomy CALOS 3GRM HEMOSTAT ABS FDA Start: 03-18-2020 Laparoscopic abdominal hysterectomy CALOS 3GRM HEMOSTAT ABS FDA Start: 03-18-2020 Functional Status Date Assessment Result Facility 09-09-2022 Functional Status Minimum assistance [facility] 09-09-2022 Functional Status Standard Safety ID band on [facility] 09-09-2022 Functional Status [place] Sathya wilcox [facility] Mental Status Date Assessment Result Facility 09-09-2022 Mental Status Orientation Oriented x 4 [facility] 09-09-2022 [facility] Status [facility] 09-09-2022 Mental Status [facility] Clinical Notes 09-28-2020 to 11-18-2023 Telephone Encounter - Pepepr Johansen LPN - 11/18/2023 8:44 AM EDTTelephone Encounter - Pepper Johansen LPN - 11/18/2023 8:44 AM EDTTelephone Encounter - Guillaume Alonso PA - 11/18/2023 8:33 AM EDT Note Date & Type Note Facility 11-18-2023 Telephone encounter Note Patient given results and verbalized understanding of instructions given. Pepper Johansen LPN [facility] 11-18-2023 Miscellaneous Notes Patient given results and verbalized understanding of instructions given. Pepper Johansen LPN Please let patient know urine culture revealed mixed bacterial growth. She may continue antibiotic if it is helping. If symptoms are persisting, needs to follow-up with PCP for repeat urine culture documented in this encounter [facility] 11-18-2023 Telephone encounter Note Please let patient know urine culture revealed mixed bacterial growth. She may continue antibiotic if it is helping. If symptoms are persisting, needs to follow-up with PCP for repeat urine culture [facility] Work Phone: 11-16-2023 Note HNO ID: [id number] Author: FELIPA CERNA APRN.INSURANCE LEGAL ASSISTANT Service: ? Author Type: Nurse Practitioner Type: Progress Notes Filed: 11/16/2023 18:58 Note Text: This note was created using NoteWriter. Subjective Nkechi Mon is a 58 year old female. 58 year old female with PMH thyroid presents for possible UTI. Acute onset one month ago +burning +frequency +urgency Denies vaginal discharge Denies vaginal bleeding Denies abdominal pain Denies flank pain Denies N/V/D States that she has been taking care of her mother and her reason for delayed care. The history is provided by the patient. No cutter and edge trimmer was used. UTI This is a new problem. The current episode started more than 1 week ago. The problem occurs every urination. The problem has been gradually worsening. The quality of the pain is described as burning. The pain is at a severity of 5/10. There has been no fever. She is Not sexually active. Associated symptoms include frequency and urgency. Pertinent negatives include no chills, no sweats, no nausea, no vomiting, no discharge, no hematuria, no hesitancy, no possible and no flank pain. She has tried nothing for the symptoms. Her past medical history does not include kidney stones, single kidney, urological procedure, recurrent UTIs, urinary stasis or catheterization. PAST MEDICAL HISTORY No date: Acute gastritis without mention of hemorrhage No date: Allergic rhinitis, cause unspecified 04/16/2002: Esophageal reflux No date: History of transfusion No date: Other and unspecified hyperlipidemia 04/16/1995: Unspecified hypothyroidism PAST SURGICAL HISTORY 12/30/2007: EGD TRANSORAL BIOPSY SINGLE/MULTIPLE 2017: ENDOMETRIAL ABLTJ THERMAL W/O HYSTEROSCOPIC GUID Comment: Amy 11/01/2010: LEEP PROCEDURE (MICRO PALEONTOLOGIST DEPT)_*[place] Comment: LEWIS 2 01/23/2022: SKIN EXCISION Comment: excision lipoma back No date: VAGINAL HYSTERECTOMY 03/18/2020: VAGINAL HYSTERECTOMY UTERUS 250 GM/< Comment: LAVH, bilateral salpingectomy and cystoscopy at [facility] Patient has no known allergies. MEDICATIONS cyclobenzaprine (FLEXERIL) 10 mg tablet Take 1 tablet by mouth at bedtime as needed for muscle spasm or pain. of leg (Patient not taking: Reported on 11/16/2023) levothyroxine (SYNTHROID) 100 mcg tablet Take 1 tablet by mouth once daily. Take on empty stomach (Patient not taking: Reported on 11/16/2023) FAMILY HISTORY Problem Relation Age of Onset Stroke Mother other (rheumatoid arthritis) Mother Cancer Father 69 Melanoma/bone cancer Heart Maternal Grandmother Diabetes Maternal Grandmother Cancer Maternal Grandfather pancreatic CA Cancer Paternal Grandmother spine other (Other) Paternal Grandfather appendix burst Social History Tobacco Use Smoking status: Never Smokeless tobacco: Never Vaping Use Vaping Use: Never used Substance Use Topics Alcohol use: No Drug use: No Review of Systems Constitutional: Negative for chills, fatigue and fever. Eyes: Negative for pain, discharge, redness and itching. Respiratory: Negative for apnea, cough, choking, chest tightness and shortness of breath. Cardiovascular: Negative for chest pain, palpitations and leg swelling. Gastrointestinal: Negative for abdominal pain, nausea and vomiting. Genitourinary: Positive for dysuria, frequency and urgency. Negative for flank pain, hematuria and hesitancy. Musculoskeletal: Negative for back pain. Skin: Negative for color change, pallor, rash and wound. Allergic/Immunologic: Negative for environmental allergies, food allergies and immunocompromised state. Neurological: Negative for dizziness, facial asymmetry, light-headedness and headaches. Hematological: Negative for adenopathy. Does not bruise/bleed easily. Psychiatric/Behavioral: Negative for agitation and behavioral problems. Objective BP 136/87 Pulse 97 Temp 37.1 ?C (98.7 ?F) Resp 18 Wt 76 kg (167 lb 8.8 oz) LMP 02/03/2020 SpO2 97% BMI 30.65 kg/m? Physical Exam Vitals and nursing note reviewed. Constitutional: General: She is not in acute distress. Appearance: Normal appearance. She is normal weight. She is not ill-appearing, toxic-appearing or diaphoretic. HENT: Head: Normocephalic and atraumatic. Right Ear: Ear canal and external ear normal. Left Ear: Ear canal and external ear normal. Nose: Nose normal. No congestion or rhinorrhea. Mouth/Throat: Mouth: Mucous membranes are moist. Pharynx: No oropharyngeal exudate or posterior oropharyngeal erythema. Eyes: General: Right eye: No discharge. Left eye: No discharge. Extraocular Movements: Extraocular movements intact. Conjunctiva/sclera: Conjunctivae normal. Pupils: Pupils are equal, round, and reactive to light. Cardiovascular: Rate and Rhythm: Normal rate and regular rhythm. Pulses: Normal pulses. Heart sounds: Normal heart sounds. No murmur heard. No friction rub. Pulmonary: Ef (more content not included)... [facility] 11-16-2023 History of Presen t illness Narrative This note was created using Xolve. Subjective Nkechi Mon is a 58 year old female. 58 year old female with PMH thyroid presents for possible UTI. Acute onset one month ago +burning +frequency +urgency Denies vaginal discharge Denies vaginal bleeding Denies abdominal pain Denies flank pain Denies N/V/D States that she has been taking care of her mother and her reason for delayed care. The history is provided by the patient. No cutter and edge trimmer was used. UTI This is a new problem. The current episode started more than 1 week ago. The problem occurs every urination. The problem has been gradually worsening. The quality of the pain is described as burning. The pain is at a severity of 5/10. There has been no fever. She is Not sexually active. Associated symptoms include frequency and urgency. Pertinent negatives include no chills, no sweats, no nausea, no vomiting, no discharge, no hematuria, no hesitancy, no possible and no flank pain. She has tried nothing for the symptoms. Her past medical history does not include kidney stones, single kidney, urological procedure, recurrent UTIs, urinary stasis or catheterization. PAST MEDICAL HISTORY No date: Acute gastritis without mention of hemorrhage No date: Allergic rhinitis, cause unspecified 04/16/2002: Esophageal reflux No date: History of transfusion No date: Other and unspecified hyperlipidemia 04/16/1995: Unspecified hypothyroidism PAST SURGICAL HISTORY 12/30/2007: EGD TRANSORAL BIOPSY SINGLE/MULTIPLE 2017: ENDOMETRIAL ABLTJ THERMAL W/O HYSTEROSCOPIC GUID Comment: Amy 11/01/2010: LEEP PROCEDURE (MICRO PALEONTOLOGIST DEPT)_*[place] Comment: LEWIS 2 01/23/2022: SKIN EXCISION Comment: excision lipoma back No date: VAGINAL HYSTERECTOMY 03/18/2020: VAGINAL HYSTERECTOMY UTERUS 250 GM/< Comment: LAVH, bilateral salpingectomy and cystoscopy at [facility] Patient has no known allergies. MEDICATIONS cyclobenzaprine (FLEXERIL) 10 mg tablet Take 1 tablet by mouth at bedtime as needed for muscle spasm or pain. of leg (Patient not taking: Reported on 11/16/2023) levothyroxine (SYNTHROID) 100 mcg tablet Take 1 tablet by mouth once daily. Take on empty stomach (Patient not taking: Reported on 11/16/2023) FAMILY HISTORY Problem Relation Age of Onset Stroke Mother other (rheumatoid arthritis) Mother Cancer Father 69 Melanoma/bone cancer Heart Maternal Grandmother Diabetes Maternal Grandmother Cancer Maternal Grandfather pancreatic CA Cancer Paternal Grandmother spine other (Other) Paternal Grandfather appendix burst Social History Tobacco Use Smoking status: Never Smokeless tobacco: Never Vaping Use Vaping Use: Never used Substance Use Topics Alcohol use: No Drug use: No Review of Systems Constitutional: Negative for chills, fatigue and fever. Eyes: Negative for pain, discharge, redness and itching. Respiratory: Negative for apnea, cough, choking, chest tightness and shortness of breath. Cardiovascular: Negative for chest pain, palpitations and leg swelling. Gastrointestinal: Negative for abdominal pain, nausea and vomiting. Genitourinary: Positive for dysuria, frequency and urgency. Negative for flank pain, hematuria and hesitancy. Musculoskeletal: Negative for back pain. Skin: Negative for color change, pallor, rash and wound. Allergic/Immunologic: Negative for environmental allergies, food allergies and immunocompromised state. Neurological: Negative for dizziness, facial asymmetry, light-headedness and headaches. Hematological: Negative for adenopathy. Does not bruise/bleed easily. Psychiatric/Behavioral: Negative for agitation and behavioral problems. Objective BP 136/87 Pulse 97 Temp 37.1 C (98.7 F) Resp 18 Wt 76 kg (167 lb 8.8 oz) LMP 02/03/2020 SpO2 97% BMI 30.65 kg/m Physical Exam Vitals and nursing note reviewed. Constitutional: General: She is not in acute distress. Appearance: Normal appearance. She is normal weight. She is not ill-appearing, toxic-appearing or diaphoretic. HENT: Head: Normocephalic and atraumatic. Right Ear: Ear canal and external ear normal. Left Ear: Ear canal and external ear normal. Nose: Nose normal. No congestion or rhinorrhea. Mouth/Throat: Mouth: Mucous membranes are moist. Pharynx: No oropharyngeal exudate or posterior oropharyngeal erythema. Eyes: General: Right eye: No discharge. Left eye: No discharge. Extraocular Movements: Extraocular movements intact. Conjunctiva/sclera: Conjunctivae normal. Pupils: Pupils are equal, round, and reactive to light. Cardiovascular: Rate and Rhythm: Normal rate and regular rhythm. Pulses: Normal pulses. Heart sounds: Normal heart sounds. No murmur heard. No friction rub. Pulmonary: Effort: Pulmonary effort is normal. No respiratory distress. Breath sounds: Normal breath sounds. No stridor. No wheezing, rhonchi or rales. Chest: Chest wall: No tenderness. Abdominal: General: Abdomen is flat. There is no distension. Palpations: Abdomen is soft. There is no mass. Tenderness: There is no abdominal tenderness. There is no right CVA tenderness, left CVA tenderness, guarding or rebound. Hernia: No hernia is present. Musculoskeletal: General: No swelling, tenderness, deformity or signs of injury. Normal range of motion. Cervical back: Normal range of motion and neck supple. No rigidity. Right lower leg: No edema. Left lower leg: No edema. Lymphadenopathy: Cervical: No cervical adenopathy. Skin: General: Skin is warm and dry. Capillary Refill: Capillary refill takes less than 2 seconds. Coloration: Skin is not jaundiced or pale. Findings: No bruising, erythema, lesion or rash. Neurological: General: No focal deficit present. Mental Status: She is alert and oriented to person, place, and time. Cranial Nerves: No cranial nerve deficit. Sensory: No sensory deficit. Motor: No weakness. Coordination: Coordination normal. Gait: Gait normal. Psychiatric: Mood and Affect: Mood normal. Behavior: Behavior normal. Thought Content: Thought content normal. Judgment: Judgment normal. Assessment and Plan ASSESSMENT/PLAN: 1. Dysuria - ICD9: 788.1, ICD10: R30.0 acute - UA positive for connie esterase, hematuria, and proteinuria - Send urine for culture - Begin treatment with Macrobid 100 mg BID for 5 days - Patient education for prevention given - UA DIP, URINE (POC) - URINE CULTURE Felipa Cerna, SALOON KEEPER.INSURANCE LEGAL ASSISTANT documented in this encounter [facility] 07-25-2023 Note Patient Outreach (IN [facility]) NKECHI MON ([id number]) 1965 F Date Time Provider Department 07/25/23 JANIE NAVARRETE During your visit today, we recorded the following information about you: Allergies As of Date: 07/25/2023 (No Known Allergies) Date Reviewed: 09/21/2022 Reviewed by: Faith Hogan APRN.FUSE CUP EXPANDER - Fully Assessed Visit Diagnosis:Encounter for screening mammogram for breast cancer [Z12.31] Order(s):[facility] SCREENING [[id number]] Order #: [id number] FUTURE Prescriptions as of 07/30/2023 - cyclobenzaprine (FLEXERIL) 10 mg tablet Take 1 tablet by mouth at bedtime as needed for muscle spasm or pain. of leg - levothyroxine (SYNTHROID) 100 mcg tablet Take 1 tablet by mouth once daily. Take on empty stomach Problem List As Of Date 07/25/2023 Noted Resolved HYPERLIPIDEMIA NEC/NOS [E78.5] Hypothyroidism [E03.9] OBESITY NOS [E66.9] ALLERGIC RHINITIS NOS [J30.9] ACUTE GASTRITIS W/O HEMORRHAGE [K29.00] 12/30/2007 Lateral epicondylitis of elbow [M77.10] 08/30/2010 Intramural leiomyoma of uterus [D25.1] 01/15/2017 Anemia due to chronic blood loss [D50.0] 02/24/2020 Encounter Status:Closed by BJ, PRODUSER on 07/30/23 [facility] 01-01-2023 Miscellaneous Notes Patient given below recommendation from Dr. Navarrete, she will get labs done, then see Ashly Steele BLACK ASH BURNER OPERATOR on 01/15/2023. Brittney Horan LPN Patient has not had labs and no recent RX for thyroid medication--wonder if getting labs done at outside lab from another provider and if was getting prescription elsewhere Last labs found scanned in from 01/2021 and TSH was 18.30 (January 2021 when last saw patient--had run out of med the year prior to that appointment). Found a 12/19/22 [email or web address] message--patient asking for labs; was recommended to make an .appointment. I filed orders so may do prior to appointment. Since has not been taking thyroid med, will hold off on ordering till has had lass done and been seen (unless was filling elsewhere and now needs RX to continue) Help make appointment Patient has been identified by name and date of : Yes, Barbara Davis RN Date 12/29/2022 Time 3:40 pm Patient phones for refill(s): Requested Prescriptions Pending Prescriptions Disp Refills levothyroxine (SYNTHROID) 100 mcg tablet 30 tablet 0 Sig: Take 1 tablet by mouth once daily. Take on empty stomach Date of last office visit with pcp: 02/12/2021 Future appt: 01/15/2023 Last 2 Encounter Wt Readings: Date: Wt: 01/30/2022 80.7 kg (178 lb) 12/28/2021 82.6 kg (182 lb 1.6 oz) Previous labs/tests for medication: Thyroid: TSH (uU/mL) Date Value 01/12/2017 4.020 Blood Pressure: BUN (mg/dL) Date Value 09/06/2018 9 Sodium (mmol/L) Date Value 09/06/2018 134 Last 1 Encounter BP Readings: Date: BP: 01/30/2022 120/84 Liver Function: ALT (U/L) Date Value 06/21/2016 22 AST (U/L) Date Value 06/21/2016 28 Please advise. Thank you. Barbara Davis RN documented in this encounter [facility] 09-19-2022 Miscellaneous Notes Looks like she was provided pain medication September 09, 2022. Please obtain outside records and schedule follow-up visit for her VÍCTOR. She should have been provided with at least a few days of medication from the ER. documented in this encounter [facility] 09-09-2022 Hospital Discharg e instructions Patient Education 09/09/2022 16:13:03 Treating Strains and Sprains Treating Strains and Sprains Strains and sprains happen when muscles or other soft tissues near your bones stretch or tear. These injuries can cause bruising, swelling, and pain. To ease your discomfort and speed the healing of your strain or sprain, follow the tips below. Remember, a strain or sprain can take 6 to 8 weeks to heal. Important Note: Do not give aspirin to children or teens without discussing it with your healthcare provider first. Ice first, heat later Use ice for the first 24 to 48 hours after injury. Ice helps prevent swelling and reduce pain. Ice the injury for no more than 20 minutes at a time and allow at least 20 minutes between icing sessions. Apply heat after the first 72 hours, once the swelling has gone down. Heat relaxes muscles and increases blood flow. Soak the injured area in warm water or use a heating pad set on low for no more than 15 minutes at a time. Wrap and elevate Wrap an injured limb firmly with an elastic bandage. This provides support and helps prevent swelling. Don t wear an elastic bandage overnight. Watch for tingling, numbness, or increased pain. Remove the bandage immediately if any of these occurs. Elevate the injured area to help reduce swelling and throbbing. It s best to raise an injured limb above the level of your heart. Medicines Cabg-ifc-icihqbe medicines such as acetaminophen or ibuprofen can help reduce pain. Some also help reduce swelling. Take medicine only as directed. Rest the area even if medicines are controlling the pain. Rest Rest the injured area by not using it for 24 hours. When you re ready, return slowly to your normal activities. Rest the injured area often. Don t use or walk on an injured limb if it hurts. [id number] [employer] [address] [place] [address], [place] [address]. All rights reserved. This information is not intended as a substitute for professional medical care. Always follow your healthcare professional's instructions. 09/09/2022 16:13:03 Treating Strains and Sprains Treating Strains and Sprains Strains and sprains happen when muscles or other soft tissues near your bones stretch or tear. These injuries can cause bruising, swelling, and pain. To ease your discomfort and speed the healing of your strain or sprain, follow the tips below. Remember, a strain or sprain can take 6 to 8 weeks to heal. Important Note: Do not give aspirin to children or teens without discussing it with your healthcare provider first. Ice first, heat later Use ice for the first 24 to 48 hours after injury. Ice helps prevent swelling and reduce pain. Ice the injury for no more than 20 minutes at a time and allow at least 20 minutes between icing sessions. Apply heat after the first 72 hours, once the swelling has gone down. Heat relaxes muscles and increases blood flow. Soak the injured area in warm water or use a heating pad set on low for no more than 15 minutes at a time. Wrap and elevate Wrap an injured limb firmly with an elastic bandage. This provides support and helps prevent swelling. Don t wear an elastic bandage overnight. Watch for tingling, numbness, or increased pain. Remove the bandage immediately if any of these occurs. Elevate the injured area to help reduce swelling and throbbing. It s best to raise an injured limb above the level of your heart. Medicines Jctb-xsr-ashgjft medicines such as acetaminophen or ibuprofen can help reduce pain. Some also help reduce swelling. Take medicine only as directed. Rest the area even if medicines are controlling the pain. Rest Rest the injured area by not using it for 24 hours. When you re ready, return slowly to your normal activities. Rest the injured area often. Don t use or walk on an injured limb if it hurts. [id number] [employer] [address] [place] [address], [place] [address]. All rights reserved. This information is not intended as a substitute for professional medical care. Always follow your healthcare professional's instructions. 09/09/2022 16:12:57 VIANEY Wrap VIANEY Wrap Minor muscle or joint injuries are often treated with an elastic bandage. The bandage provides support and compression to the injured area. An elastic bandage is a stretchy, rolled bandage. Elastic bandages range in width from 2 to 6 inches. They can be used for a variety of injuries. The bandages are often called VIANEY bandages, after the most common brand name. If used correctly, elastic bandages help control swelling and ease pain. An elastic bandage is also a good reminder not to overuse the injured area. However, elastic bandages do not provide a lot of support and will not prevent reinjury. Home care To apply an elastic bandage: Check the skin before wrapping the injury. It should be clean, dry, and free of drainage. Start wrapping below the injury and work your way toward the body. For an ankle sprain, start wrapping around the foot and work up toward the calf. This will help control swelling. Overlap the edges of the bandage so it stays snuggly in place. Wrap the bandage firmly, but not too tightly. A tight bandage can increase swelling on either end of the bandage. Make sure the bandage is wrinkle free. Leave fingers and toes exposed. Secure ends of the bandage (even self-sticking ones) with clips or tape. Check often to be sure there is good circulation, especially in the fingers and toes. Loosen the bandage if there is local swelling, numbness, tingling, discomfort, coldness, or discoloration (skin pale or bluish in color). Rewrap the bandage as needed during the day. Reroll the bandage as you unwind it. Continue using the elastic bandage until the pain and swelling are gone or as your healthcare provider advises. If you have been told to ice the area, the ice can be secured in place with the elastic bandage. Wrap the ice pack with a thin towel to protect the skin. Don't put ice or an ice pack directly on the skin. Ice the area for no more than 20 minutes at a time. Follow-up care Follow up with your healthcare provider, or as advised. When to seek medical advice Call your healthcare provider for any of the following: Pain and swelling that doesn't get better or gets worse Trouble moving injured area Skin discoloration, numbness, or tingling that doesn t go away after bandage is removed [phone] [employer] [address] [place], [place] [id number]. All rights reserved. This information is not intended as a substitute for professional medical care. Always follow your healthcare professional's instructions. 09/09/2022 16:12:57 VIANEY Wrap VIANEY Wrap Minor muscle or joint injuries are often treated with an elastic bandage. The bandage provides support and compression to the injured area. An elastic bandage is a stretchy, rolled bandage. Elastic bandages range in width from 2 to 6 inches. They can be used for a variety of injuries. The bandages are often called VIANEY bandages, after the most common brand name. If used correctly, elastic bandages help control swelling and ease pain. An elastic bandage is also a good reminder not to overuse the injured area. However, elastic bandages do not provide a lot of support and will not prevent reinjury. Home care To apply an elastic bandage: Check the skin before wrapping the injury. It should be clean, dry, and free of drainage. Start wrapping below the injury and work your way toward the body. For an ankle sprain, start wrapping around the foot and work up toward the calf. This will help control swelling. Overlap the edges of the bandage so it stays snuggly in place. Wrap the bandage firmly, but not too tightly. A tight bandage can increase swelling on either end of the bandage. Make sure the bandage is wrinkle free. Leave fingers and toes exposed. Secure ends of the bandage (even self-sticking ones) with clips or tape. Check often to be sure there is good circulation, especially in the fingers and toes. Loosen the bandage if there is local swelling, numbness, tingling, discomfort, coldness, or discoloration (skin pale or bluish in color). Rewrap the bandage as needed during the day. Reroll the bandage as you unwind it. Continue using the elastic bandage until the pain and swelling are gone or as your healthcare provider advises. If you have been told to ice the area, the ice can be secured in place with the elastic bandage. Wrap the ice pack with a thin towel to protect the skin. Don't put ice or an ice pack directly on the skin. Ice the area for no more than 20 minutes at a time. Follow-up care Follow up with your healthcare provider, or as advised. When to seek medical advice Call your healthcare provider for any of the following: Pain and swelling that doesn't get better or gets worse Trouble moving injured area Skin discoloration, numbness, or tingling that doesn t go away after bandage is removed [phone] [employer] [address] [place] [address]. All rights reserved. This information is not intended as a substitute for professional medical care. Always follow your healthcare professional's instructions. 09/09/2022 16:12:21 Treating Strains and Sprains Treating Strains and Sprains Strains and sprains happen when muscles or other soft tissues near your bones stretch or tear. These injuries can cause bruising, swelling, and pain. To ease your discomfort and speed the healing of your strain or sprain, follow the tips below. Remember, a strain or sprain can take 6 to 8 weeks to heal. Important Note: Do not give aspirin to children or teens without discussing it with your healthcare provider first. Ice first, heat later Use ice for the first 24 to 48 hours after injury. Ice helps prevent swelling and reduce pain. Ice the injury for no more than 20 minutes at a time and allow at least 20 minutes between icing sessions. Apply heat after the first 72 hours, once the swelling has gone down. Heat relaxes muscles and increases blood flow. Soak the injured area in warm water or use a heating pad set on low for no more than 15 minutes at a time. Wrap and elevate Wrap an injured limb firmly with an elastic bandage. This provides support and helps prevent swelling. Don t wear an elastic bandage overnight. Watch for tingling, numbness, or increased pain. Remove the bandage immediately if any of these occurs. Elevate the injured area to help reduce swelling and throbbing. It s best to raise an injured limb above the level of your heart. Medicines Ijos-ben-oaxpahj medicines such as acetaminophen or ibuprofen can help reduce pain. Some also help reduce swelling. Take medicine only as directed. Rest the area even if medicines are controlling the pain. Rest Rest the injured area by not using it for 24 hours. When you re ready, return slowly to your normal activities. Rest the injured area often. Don t use or walk on an injured limb if it hurts. [phone] [employer] [address] [place] [address]. All rights reserved. This information is not intended as a substitute for professional medical care. Always follow your healthcare professional's instructions. Follow Up Care 09/09/2022 13:30:16 With:JANIE NAVARRETE MD Address: [address] [place] [address]- When:2-4 days [facility] 09-09-2022 Emergency department Discharge summary Discharge Instructions Thank you for allowing [facility] to assist you with your healthcare needs. The following is important discharge information regarding your hospital visit. Diagnosis from Today's Visit Hamstring injury Fall Leg pain-swelling What to Do Next Instructions from Your Care Team Discharge Home Equipment - Ordered -- *Other specify in special instructions, 1 month(s), Apply 6 inch VIANEY to Right Thigh, 09/09/22 14:21:00 EDT Discharge Home Equipment - Ordered -- Walker; without wheels, 99 month(s), 09/09/22 16:10:00 EDT Discharge Return to Work, School, or Sports (Return to Work, School, or Sports) - Ordered -- 09/09/22, 09/13/22, May return to: work, 09/09/22 16:11:00 EDT Post Acute Orders No qualifying data available. You Need to Schedule the Following Appointments Follow Up with JANIE NAVARRETE MD When Within 2-4 days Where: [address] [place] [address]- Allergies No Known Medication Allergies Medications Please ask your primary doctor or pharmacist before taking any other medication not listed, including over the counter drugs, herbal medications, vitamins and or supplements as they may interact with your home medications. What How Much When Why Instructions Last Dose New acetaminophen-hydrocodone (Flynn 325- 5 mg oral tablet) 1 tab(s) by mouth Every 6 hours as needed for as needed for pain Hamstring injury Duration: 3 Days Printed Prescription New ibuprofen (ibuprofen 600 mg oral tablet) 1 tab(s) by mouth Four (4) times a day as needed for as needed for pain Printed Prescription Please take this list to your next doctor s visit. Bring all medications you take, including over the counter medications, herbals and other supplements with you to your doctor s visit. Patients and families are reminded to discard old lists and to update any records with all medication providers or retail pharmacies. Medication Leaflets acetaminophen and hydrocodone (a SEET a MIN oh fen and tena droe KOE done) Hycet, Lorcet, Flynn, Verdrocet, Vicodin, Xodol, Zamicet What is the most important information I should know about acetaminophen and hydrocodone? MISUSE OF OPIOID MEDICINE CAN CAUSE ADDICTION, OVERDOSE, OR . Keep the medication in a place where others cannot get to it. Taking opioid medicine during may cause life-threatening withdrawal symptoms in the . Fatal side effects can occur if you use opioid medicine with alcohol, or with other drugs that cause drowsiness or slow your breathing. Stop taking this medicine and call your doctor right away if you have skin redness or a rash that spreads and causes blistering and peeling. What is acetaminophen and hydrocodone? Acetaminophen and hydrocodone is a combination medicine used to relieve moderate to severe pain. Acetaminophen and hydrocodone contains an opioid medicine, and may be habit-forming. Acetaminophen and hydrocodone may also be used for purposes not listed in this medication guide. What should I discuss with my healthcare provider before taking acetaminophen and hydrocodone? You should not use this medicine if you are allergic to acetaminophen or hydrocodone, or if you have: severe asthma or breathing problems; or a blockage in your stomach or intestines. Tell your doctor if you have ever had: breathing problems, sleep apnea (breathing stops during sleep); liver disease; a drug or alcohol addiction; kidney disease; a head injury or seizures; urination problems; or problems with your thyroid, pancreas, or gallbladder. If you use opioid medicine while you are , your baby could become dependent on the drug. This can cause life-threatening withdrawal symptoms in the baby after it is born. Babies born dependent on opioids may need medical treatment for several weeks. Ask a doctor before using opioid medicine if you are . Tell your doctor if you notice severe drowsiness or slow breathing in the nursing baby. How should I take acetaminophen and hydrocodone? Follow all directions on your prescription label. Never take this medicine in larger amounts, or for longer than prescribed. An overdose can damage your liver or cause . Tell your doctor if you feel an increased urge to use more of this medicine. Never share this medicine with another person, especially someone with a history of drug abuse or addiction. MISUSE CAN CAUSE ADDICTION, OVERDOSE, OR . Keep the medicine in a place where others cannot get to it. Selling or giving away this medicine is against the law. Measure liquid medicine carefully. Use the dosing syringe provided, or use a medicine dose-measuring device (not a kitchen spoon). If you need surgery or medical tests, tell the doctor ahead of time that you are using this medicine. You should not stop using this medicine suddenly. Follow your doctor's instructions about tapering your dose. Store at room temperature away from moisture and heat. Keep track of your medicine. You should be aware if anyone is using it improperly or without a prescription. Do not keep leftover opioid medication. Just one dose can cause in someone using this medicine accidentally or improperly. Ask your pharmacist where to locate a drug take-back disposal program. If there is no take-back program, flush the unused medicine down the toilet. What happens if I miss a dose? Since this medicine is used for pain, you are not likely to miss a dose. Skip any missed dose if it is almost time for your next dose. Do not use two doses at one time. What happens if I overdose? Seek emergency medical attention or call the Poison Help line at . An overdose of this medicine can be fatal, especially in a child or other person using the medicine without a prescription. Overdose symptoms may include nausea, vomiting, sweating, severe drowsiness, pinpoint pupils, slow breathing, or no breathing. Your doctor may recommend you get naloxone (a medicine to reverse an opioid overdose) and keep it with you at all times. A person caring for you can give the naloxone if you stop breathing or don't wake up. Your caregiver must still get emergency medical help and may need to perform CPR (cardiopulmonary resuscitation) on you while waiting for help to arrive. Anyone can buy naloxone from a pharmacy or local health department. Make sure any person caring for you knows where you keep naloxone and how to use it. What should I avoid while taking acetaminophen and hydrocodone? Avoid driving or operating machinery until you know how this medicine will affect you. Dizziness or drowsiness can cause falls, accidents, or severe injuries. Do not drink alcohol. Dangerous side effects or could occur. Ask a doctor or pharmacist before using any other medicine that may contain acetaminophen (sometimes abbreviated as APAP). Taking certain medications together can lead to a fatal overdose. What are the possible side effects of acetaminophen and hydrocodone? Get emergency medical help if you have signs of an allergic reaction: hives; difficulty breathing; swelling of your face, lips, tongue, or throat. Opioid medicine can slow or stop your breathing, and may occur. A person caring for you should give naloxone and/or seek emergency medical attention if you have slow breathing with long pauses, blue colored lips, or if you are hard to wake up. In rare cases, acetaminophen may cause a severe skin reaction that can be fatal. This could occur even if you have taken acetaminophen in the past and had no reaction. Stop taking this medicine and call your doctor right away if you have skin redness or a rash that spreads and causes blistering and peeling. Call your doctor at once if you have: noisy breathing, sighing, shallow breathing, breathing that stops; a light-headed feeling, like you might pass out; liver problems--nausea, upper stomach pain, tiredness, loss of appetite, dark urine, aura-colored stools, jaundice (yellowing of the skin or eyes); low cortisol levels-- nausea, vomiting, loss of appetite, dizziness, worsening tiredness or weakness; o high levels of serotonin in the body--agitation, hallucinations, fever, sweating, shivering, fast heart rate, muscle stiffness, twitching, loss of coordination, nausea, vomiting, diarrhea. Serious breathing problems may be more likely in older adults and in those who are debilitated or have wasting syndrome or chronic breathing disorders. Common side effects include: dizziness, drowsiness, feeling tired; nausea, vomiting, stomach pain; constipation; or headache. This is not a complete list of side effects and others may occur. Call your doctor for medical advice about side effects. You may report side effects to FDA at 2-874-EHM-7676. What other drugs will affect acetaminophen and hydrocodone? You may have breathing problems or withdrawal symptoms if you start or stop taking certain other medicines. Tell your doctor if you also use an antibiotic, antifungal medication, heart or blood pressure medication, seizure medication, or medicine to treat HIV or hepatitis C. Opioid medication can interact with many other drugs and cause dangerous side effects or . Be sure your doctor knows if you also use: cold or allergy medicines, bronchodilator asthma/COPD medication, or a diuretic ('water pill'); medicines for motion sickness, irritable bowel syndrome, or overactive bladder; other opioids--opioid pain medicine or prescription cough medicine; a sedative like Valium--diazepam, alprazolam, lorazepam, Xanax, Klonopin, Versed, and others; drugs that make you sleepy or slow your breathing--a sleeping pill, muscle relaxer, medicine to treat mood disorders or mental illness; drugs that affect serotonin levels in your body--a stimulant, or medicine for depression, Parkinson's disease, migraine headaches, serious infections, or nausea and vomiting. This list is not complete. Other drugs may affect acetaminophen and hydrocodone, including prescription and ygwm-hlg-yfquczt medicines, vitamins, and herbal products. Not all possible interactions are listed here. Where can I get more information? Your doctor or pharmacist can provide more information about acetaminophen and hydrocodone. Remember, keep this and all other medicines out of the reach of children, never share your medicines with others, and use this medication only for the indication prescribed. Every effort has been made to ensure that the information provided by [employer] is accurate, up-to-date, and complete, but no guarantee is made to that effect. Drug information contained herein may be time sensitive. [employer] information has been compiled for use by healthcare practitioners and consumers in the [place] and therefore [employer] does not warrant that uses outside of the [place] are appropriate, unless specifically indicated otherwise. [employer] drug information does not endorse drugs, diagnose patients or recommend therapy. [employer] drug information is an informational resource designed to assist licensed healthcare practitioners in caring for their patients and/or to serve consumers viewing this service as a supplement to, and not a substitute for, the expertise, skill, knowledge and judgment of healthcare practitioners. The absence of a warning for a given drug or drug combination in no way should be construed to indicate that the drug or drug combination is safe, effective or appropriate for any given patient. [facility] does not assume any responsibility for any aspect of healthcare administered with the aid of information [facility] provides. The information contained herein is not intended to cover all possible uses, directions, precautions, warnings, drug interactions, allergic reactions, or adverse effects. If you have questions about the drugs you are taking, check with your doctor, nurse or pharmacist. Copyright 1836-1459 [facility] [employer]. Version: 16.03. Revision Date: 05/18/2020. ibuprofen (EYE bue PROE fen) Advil, Genpril, IBU, Midol IB, Motrin IB, Proprinal, Smart Sense Children's Ibuprofen What is the most important information I should know about ibuprofen? Ibuprofen can increase your risk of fatal heart attack or stroke. Do not use this medicine just before or after heart bypass surgery (coronary artery bypass graft, or CABG). Ibuprofen may also cause stomach or intestinal bleeding, which can be fatal. What is ibuprofen? Ibuprofen is a nonsteroidal anti-inflammatory drug (NSAID). Ibuprofen is used to reduce fever and treat pain or inflammation caused by many conditions such as headache, toothache, back pain, arthritis, menstrual cramps, or minor injury. This medicine is used in adults and children who are at least 6 months old. Ibuprofen may also be used for purposes not listed in this medication guide. What should I discuss with my healthcare provider before taking ibuprofen? Ibuprofen can increase your risk of fatal heart attack or stroke, even if you don't have any risk factors. Do not use this medicine just before or after heart bypass surgery (coronary artery bypass graft, or CABG). Ibuprofen may also cause stomach or intestinal bleeding, which can be fatal. These conditions can occur without warning while you are using ibuprofen, especially in older adults. You should not use ibuprofen if you are allergic to it, or if you have ever had an asthma attack or severe allergic reaction after taking aspirin or an NSAID. Ask a doctor or pharmacist if this medicine is safe to use if you have ever had: heart disease, high blood pressure, high cholesterol, diabetes, or if you smoke; a heart attack, stroke, or blood clot; stomach ulcers or bleeding; liver or kidney disease; asthma; or if you take aspirin to prevent heart attack or stroke. Ask a doctor before using this medicine if you are or . If you are , you should not take ibuprofen unless your doctor tells you to. Taking an NSAID during the last 20 weeks of can cause serious heart or kidney problems in the unborn baby and possible complications with your . Do not give ibuprofen to a child younger than 6 months old without the advice of a doctor. How should I take ibuprofen? Use exactly as directed on the label, or as prescribed by your doctor. Use the lowest dose that is effective in treating your condition. An ibuprofen overdose can damage your stomach or intestines. The maximum amount of ibuprofen for adults is 800 milligrams per dose or 3200 mg per day (4 maximum doses). A child's dose of ibuprofen is based on the age and weight of the child. Carefully follow the dosing instructions provided with children's ibuprofen for the age and weight of your child. Ask a doctor or pharmacist if you have questions. Take ibuprofen with food or milk to lessen stomach upset. Shake the oral suspension (liquid) before you measure a dose. Use the dosing syringe provided, or use a medicine dose-measuring device (not a kitchen spoon). You must chew the chewable tablet before you swallow it. Store at room temperature away from moisture and heat. Do not allow the liquid medicine to freeze. What happens if I miss a dose? Since ibuprofen is used when needed, you may not be on a dosing schedule. Skip any missed dose if it's almost time for your next dose. Do not use two doses at one time. What happens if I overdose? Seek emergency medical attention or call the Poison Help line at . Overdose symptoms may include nausea, vomiting, stomach pain, drowsiness, black or bloody stools, coughing up blood, shallow breathing, fainting, or coma. What should I avoid while taking ibuprofen? Ask a doctor or pharmacist before using other medicines for pain, fever, swelling, or cold/flu symptoms. They may contain ingredients similar to ibuprofen (such as aspirin, ibuprofen, ketoprofen, or naproxen). Avoid taking aspirin unless your doctor tells you to. If you also take aspirin to prevent stroke or heart attack, taking ibuprofen can make aspirin less effective in protecting your heart and blood vessels. If you take both medicines, take ibuprofen at least 8 hours before or 30 minutes after you take aspirin (non-enteric coated form). Avoid drinking alcohol. It may increase your risk of stomach bleeding. What are the possible side effects of ibuprofen? Get emergency medical help if you have signs of an allergic reaction (hives, difficult breathing, swelling in your face or throat) or a severe skin reaction (fever, sore throat, burning eyes, skin pain, red or purple skin rash with blistering and peeling). Get emergency medical help if you have signs of a heart attack or stroke: chest pain spreading to your jaw or shoulder, sudden numbness or weakness on one side of the body, slurred speech, leg swelling, feeling short of breath. Stop using ibuprofen and call your doctor at once if you have: changes in your vision; shortness of breath (even with mild exertion); swelling or rapid weight gain; a skin rash, no matter how mild; signs of stomach bleeding--bloody or tarry stools, coughing up blood or vomit that looks like coffee grounds; liver problems--nausea, upper stomach pain, itching, tired feeling, flu-like symptoms, loss of appetite, dark urine, aura-colored stools, jaundice (yellowing of the skin or eyes); low red blood cells (anemia)--pale skin, feeling light-headed or short of breath, rapid heart rate, trouble concentrating; or kidney problems--little or no urinating, painful or difficult urination, swelling in your feet or ankles, feeling tired or short of breath. Common side effects may include: nausea, vomiting, gas; bleeding; or dizziness, headache. This is not a complete list of side effects and others may occur. Call your doctor for medical advice about side effects. You may report side effects to FDA at 5-496-ATG-7750. What other drugs will affect ibuprofen? Ask your doctor before using ibuprofen if you take an antidepressant. Taking certain antidepressants with an NSAID may cause you to bruise or bleed easily. Ask a doctor or pharmacist before using ibuprofen with any other medications, especially: cyclosporine; lithium; methotrexate; a blood thinner (warfarin, Coumadin, Jantoven); heart or blood pressure medication, including a diuretic or 'water pill'; or steroid medicine (such as prednisone). This list is not complete. Other drugs may affect ibuprofen, including prescription and zwif-nri-ovbhzuu medicines, vitamins, and herbal products. Not all possible drug interactions are listed here. Where can I get more information? Your pharmacist can provide more information about ibuprofen. Remember, keep this and all other medicines out of the reach of children, never share your medicines with others, and use this medication only for the indication prescribed. Every effort has been made to ensure that the information provided by [employer] is accurate, up-to-date, and complete, but no guarantee is made to that effect. Drug information contained herein may be time sensitive. [employer] information has been compiled for use by healthcare practitioners and consumers in the [place] and therefore [employer] does not warrant that uses outside of the [place] are appropriate, unless specifically indicated otherwise. [employer] drug information does not endorse drugs, diagnose patients or recommend therapy. [employer] drug information is an informational resource designed to assist licensed healthcare practitioners in caring for their patients and/or to serve consumers viewing this service as a supplement to, and not a substitute for, the expertise, skill, knowledge and judgment of healthcare practitioners. The absence of a warning for a given drug or drug combination in no way should be construed to indicate that the drug or drug combination is safe, effective or appropriate for any given patient. [employer] does not assume any responsibility for any aspect of healthcare administered with the aid of information [employer] provides. The information contained herein is not intended to cover all possible uses, directions, precautions, warnings, drug interactions, allergic reactions, or adverse effects. If you have questions about the drugs you are taking, check with your doctor, nurse or pharmacist. Copyright 3783-7867 [employer]. Version: 22.. Revision Date: 03/10/2020. Education Materials Treating Strains and Sprains Strains and sprains happen when muscles or other soft tissues near your bones stretch or tear. These injuries can cause bruising, swelling, and pain. To ease your discomfort and speed the healing of your strain or sprain, follow the tips below. Remember, a strain or sprain can take 6 to 8 weeks to heal. Important Note: Do not give aspirin to children or teens without discussing it with your healthcare provider first. Ice first, heat later Use ice for the first 24 to 48 hours after injury. Ice helps prevent swelling and reduce pain. Ice the injury for no more than 20 minutes at a time and allow at least 20 minutes between icing sessions. Apply heat after the first 72 hours, once the swelling has gone down. Heat relaxes muscles and increases blood flow. Soak the injured area in warm water or use a heating pad set on low for no more than 15 minutes at a time. Wrap and elevate Wrap an injured limb firmly with an elastic bandage. This provides support and helps prevent swelling. Don t wear an elastic bandage overnight. Watch for tingling, numbness, or increased pain. Remove the bandage immediately if any of these occurs. Elevate the injured area to help reduce swelling and throbbing. It s best to raise an injured limb above the level of your heart. Medicines Mlnj-fxz-ilpsucd medicines such as acetaminophen or ibuprofen can help reduce pain. Some also help reduce swelling. Take medicine only as directed. Rest the area even if medicines are controlling the pain. Rest Rest the injured area by not using it for 24 hours. When you re ready, return slowly to your normal activities. Rest the injured area often. Don t use or walk on an injured limb if it hurts. [id number] [employer] [address] [place], [place] [id number]. All rights reserved. This information is not intended as a substitute for professional medical care. Always follow your healthcare professional's instructions. Treating Strains and Sprains Strains and sprains happen when muscles or other soft tissues near your bones stretch or tear. These injuries can cause bruising, swelling, and pain. To ease your discomfort and speed the healing of your strain or sprain, follow the tips below. Remember, a strain or sprain can take 6 to 8 weeks to heal. Important Note: Do not give aspirin to children or teens without discussing it with your healthcare provider first. Ice first, heat later Use ice for the first 24 to 48 hours after injury. Ice helps prevent swelling and reduce pain. Ice the injury for no more than 20 minutes at a time and allow at least 20 minutes between icing sessions. Apply heat after the first 72 hours, once the swelling has gone down. Heat relaxes muscles and increases blood flow. Soak the injured area in warm water or use a heating pad set on low for no more than 15 minutes at a time. Wrap and elevate Wrap an injured limb firmly with an elastic bandage. This provides support and helps prevent swelling. Don t wear an elastic bandage overnight. Watch for tingling, numbness, or increased pain. Remove the bandage immediately if any of these occurs. Elevate the injured area to help reduce swelling and throbbing. It s best to raise an injured limb above the level of your heart. Medicines Pqlf-wgh-yesfwiv medicines such as acetaminophen or ibuprofen can help reduce pain. Some also help reduce swelling. Take medicine only as directed. Rest the area even if medicines are controlling the pain. Rest Rest the injured area by not using it for 24 hours. When you re ready, return slowly to your normal activities. Rest the injured area often. Don t use or walk on an injured limb if it hurts. [id number] [employer] [address] [place] [id number]. All rights reserved. This information is not intended as a substitute for professional medical care. Always follow your healthcare professional's instructions. VIANEY Wrap Minor muscle or joint injuries are often treated with an elastic bandage. The bandage provides support and compression to the injured area. An elastic bandage is a stretchy, rolled bandage. Elastic bandages range in width from 2 to 6 inches. They can be used for a variety of injuries. The bandages are often called VIANEY bandages, after the most common brand name. If used correctly, elastic bandages help control swelling and ease pain. An elastic bandage is also a good reminder not to overuse the injured area. However, elastic bandages do not provide a lot of support and will not prevent reinjury. Home care To apply an elastic bandage: Check the skin before wrapping the injury. It should be clean, dry, and free of drainage. Start wrapping below the injury and work your way toward the body. For an ankle sprain, start wrapping around the foot and work up toward the calf. This will help control swelling. Overlap the edges of the bandage so it stays snuggly in place. Wrap the bandage firmly, but not too tightly. A tight bandage can increase swelling on either end of the bandage. Make sure the bandage is wrinkle free. Leave fingers and toes exposed. Secure ends of the bandage (even self-sticking ones) with clips or tape. Check often to be sure there is good circulation, especially in the fingers and toes. Loosen the bandage if there is local swelling, numbness, tingling, discomfort, coldness, or discoloration (skin pale or bluish in color). Rewrap the bandage as needed during the day. Reroll the bandage as you unwind it. Continue using the elastic bandage until the pain and swelling are gone or as your healthcare provider advises. If you have been told to ice the area, the ice can be secured in place with the elastic bandage. Wrap the ice pack with a thin towel to protect the skin. Don't put ice or an ice pack directly on the skin. Ice the area for no more than 20 minutes at a time. Follow-up care Follow up with your healthcare provider, or as advised. When to seek medical advice Call your healthcare provider for any of the following: Pain and swelling that doesn't get better or gets worse Trouble moving injured area Skin discoloration, numbness, or tingling that doesn t go away after bandage is removed [id number] [employer] [address] [place] [address]. All rights reserved. This information is not intended as a substitute for professional medical care. Always follow your healthcare professional's instructions. VIANEY Wrap Minor muscle or joint injuries are often treated with an elastic bandage. The bandage provides support and compression to the injured area. An elastic bandage is a stretchy, rolled bandage. Elastic bandages range in width from 2 to 6 inches. They can be used for a variety of injuries. The bandages are often called VIANEY bandages, after the most common brand name. If used correctly, elastic bandages help control swelling and ease pain. An elastic bandage is also a good reminder not to overuse the injured area. However, elastic bandages do not provide a lot of support and will not prevent reinjury. Home care To apply an elastic bandage: Check the skin before wrapping the injury. It should be clean, dry, and free of drainage. Start wrapping below the injury and work your way toward the body. For an ankle sprain, start wrapping around the foot and work up toward the calf. This will help control swelling. Overlap the edges of the bandage so it stays snuggly in place. Wrap the bandage firmly, but not too tightly. A tight bandage can increase swelling on either end of the bandage. Make sure the bandage is wrinkle free. Leave fingers and toes exposed. Secure ends of the bandage (even self-sticking ones) with clips or tape. Check often to be sure there is good circulation, especially in the fingers and toes. Loosen the bandage if there is local swelling, numbness, tingling, discomfort, coldness, or discoloration (skin pale or bluish in color). Rewrap the bandage as needed during the day. Reroll the bandage as you unwind it. Continue using the elastic bandage until the pain and swelling are gone or as your healthcare provider advises. If you have been told to ice the area, the ice can be secured in place with the elastic bandage. Wrap the ice pack with a thin towel to protect the skin. Don't put ice or an ice pack directly on the skin. Ice the area for no more than 20 minutes at a time. Follow-up care Follow up with your healthcare provider, or as advised. When to seek medical advice Call your healthcare provider for any of the following: Pain and swelling that doesn't get better or gets worse Trouble moving injured area Skin discoloration, numbness, or tingling that doesn t go away after bandage is removed [id number] [employer] [address] [place] [id number]. All rights reserved. This information is not intended as a substitute for professional medical care. Always follow your healthcare professional's instructions. Treating Strains and Sprains Strains and sprains happen when muscles or other soft tissues near your bones stretch or tear. These injuries can cause bruising, swelling, and pain. To ease your discomfort and speed the healing of your strain or sprain, follow the tips below. Remember, a strain or sprain can take 6 to 8 weeks to heal. Important Note: Do not give aspirin to children or teens without discussing it with your healthcare provider first. Ice first, heat later Use ice for the first 24 to 48 hours after injury. Ice helps prevent swelling and reduce pain. Ice the injury for no more than 20 minutes at a time and allow at least 20 minutes between icing sessions. Apply heat after the first 72 hours, once the swelling has gone down. Heat relaxes muscles and increases blood flow. Soak the injured area in warm water or use a heating pad set on low for no more than 15 minutes at a time. Wrap and elevate Wrap an injured limb firmly with an elastic bandage. This provides support and helps prevent swelling. Don t wear an elastic bandage overnight. Watch for tingling, numbness, or increased pain. Remove the bandage immediately if any of these occurs. Elevate the injured area to help reduce swelling and throbbing. It s best to raise an injured limb above the level of your heart. Medicines Azos-pal-gklsslx medicines such as acetaminophen or ibuprofen can help reduce pain. Some also help reduce swelling. Take medicine only as directed. Rest the area even if medicines are controlling the pain. Rest Rest the injured area by not using it for 24 hours. When you re ready, return slowly to your normal activities. Rest the injured area often. Don t use or walk on an injured limb if it hurts. [id number] [employer] [address] [place] [address]. All rights reserved. This information is not intended as a substitute for professional medical care. Always follow your healthcare professional's instructions. Additional Information VACCINATE! IT SAVES LIVES! Members of the community who have not yet received the COVID-19 vaccine and would like to receive it can visit one of [facility] vaccine clinics. There are many vaccine clinic locations within the [facility]. For locations and available times, please visit [email or web address] It is important to note that some COVID mobile vaccine clinics are held outdoors and may be canceled in rainy or stormy conditions. To learn more about pediatric vaccinations (ages 5-11), we invite you to visit the [facility] webpage. [email or web address]/p [email or web address]-Wzeff-Glbzntaljch-Freq gcbksy-Orfpn-Gpwuozmns.html To learn more about the COVID-19 vaccine, we invite you to visit the CDC website for a list of frequently asked questions. https://www.cdc.gov/coronavirus/ 2019-ncov/vaccines/faq.html [facility] Patient Portal Access Instructions: Stay connected with your healthcare team and access your personal medical information anytime with the [facility] Patient Portal. If you would like a full copy of your medical records please contact the [facility] Medical Records Department Sunday through Sunday between 8a.m. and 4:30p.m. Please follow the directions below to access the portal: 1.Access the email account you provided upon registration to the hospital.2.Look for an invitation email from [facility].3.Open the email and access the invitation link: Accept Invitation to [facility].Fill in the required rivas to create your account. Sign into [email or web address] with your username and password that you created in the above steps to stay up to date. You can then view a summary of results, a summary of your visits, and the ability to download your summaries to your computer or send the information securely to a physician. Remember that your healthcare information is confidential, so carefully consider who you will allow to register on the [facility] Patient Portal for access to your information. You can also access the [facility] Patient Portal on the [employer] martha. Simply click on Health Records under Health Data and then click on the [facility] logo. HOW TO SAFELY DISPOSE OF PRESCRIPTION MEDICATIONS Please use one of the following methods to safely dispose of your unused medications. 1.Use a drug disposal kit: the drug disposal pouch allows you to safely discard your old and unused drugs. Ask your nurse to give you one when you are discharged.2.Visit a local take-back location: Many local pharmacies and police departments have programs that collect old and unwanted prescription drugs. Call your local pharmacy or go to http://bit.EcoGroomer/6P4Qs6o to find one close to you.3.Make use of household items: Use cat litter or old coffee grounds to dispose medications if other options are not available. Mix your drugs with these household products, seal them in an airtight container and throw it into the garbage. Call [facility]: [phone] to be sure your drugs can be disposed of in this way. Some medicines may require a different approach.4.Never flush your medications down the toilet. IF YOU HAVE BEEN PRESCRIBED AN OPIOIDS FOR PAIN If you have been prescribed an opioid (such as hydrocodone, oxycodone or morphine), it is critical to understand the possible side effects and risks of opioid pain medications. Even when taken as directed, opioids can have several side effects including: Tolerance, meaning you might need to take more of a medication for the same pain relief. Nausea, vomiting and/or constipation. Sleepiness, dizziness, dry mouth, confusion, depression or itching. Physical dependence, meaning you have withdrawal symptoms when a medication is stopped ? this can develop within a few days. KNOW YOUR RESPONSIBILITIES It is important to know exactly how much and how often to take the opioid pain medications you are prescribed. Never take opioids in higher amounts or more often than prescribed. Do not combine opioids with alcohol or other drugs that cause drowsiness, such as benzodiazepines, also known as benzos, including diazepam and alprazolam, muscle relaxants or sleep aids. Never sell or share prescription opioids. This is illegal. Store opioids in a secure place and out of reach of others (including children, family, friends and visitors). The last page(s) of this document has been signed and retained as a CHART COPY Signatures Patient Education Materials Treating Strains and Sprains Treating Strains and Sprains VIANEY Wrap VIANEY Wrap Treating Strains and Sprains Medication Leaflets acetaminophen and hydrocodone, ibuprofen My discharge plan and instructions have been reviewed and explained to me and IELIESER LISA understand my current condition and have read and understand these discharge instructions. I have received a written copy of the plan/instructions. If I have questions, I am aware that I should contact my doctor. 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 HISTORY: ORDERING SYSTEM PROVIDED HISTORY: Reason for Exam: pain FINDINGS: No acute fracture or dislocation. Normal osseous mineralization. No visible aggressive osseous lesions. The visible pelvic ring and sacrum are intact with portions of the sacrum obscured due to overlying bowel. No significant degenerative changes of the included sacroiliac joints, pubic symphysis, or right hip. Moderate medial compartment joint space narrowing of the knee. Mild lateral compartment joint space narrowing of the knee. At least mild patellofemoral compartment degenerative changes of the knee. No definite knee effusion. IMPRESSION: 1. No acute fracture or dislocation. 2. Degenerative changes of the knee. Interpreted by: Kolby Smith DO Preliminary Report By: Kolby Smith DO Electronically signed By Kolby Smith DO Dictated Date: 09/09/2022 2:14:39 PM Prelim Date: 09/09/2022 2:15:57 PM Sign Date: 09/09/2022 2:15:57 PM Ordering Provider: [facility] 09-09-2022 Note ORIGINAL EXAMINATION: TWO XRAY VIEWS OF THE RIGHT FEMUR 09/09/2022 2:06 pm COMPARISON: None. HISTORY: ORDERING SYSTEM PROVIDED HISTORY: Reason for Exam: pain FINDINGS: No acute fracture or dislocation. Normal osseous mineralization. No visible aggressive osseous lesions. The visible pelvic ring and sacrum are intact with portions of the sacrum obscured due to overlying bowel. No significant degenerative changes of the included sacroiliac joints, pubic symphysis, or right hip. Moderate medial compartment joint space narrowing of the knee. Mild lateral compartment joint space narrowing of the knee. At least mild patellofemoral compartment degenerative changes of the knee. No definite knee effusion. IMPRESSION: 1. No acute fracture or dislocation. 2. Degenerative changes of the knee. Interpreted by: Kolby Smith DO Preliminary Report By: Kolby Smith DO Electronically signed By Kolby Smith DO Dictated Date: 09/09/2022 2:14:39 PM Prelim Date: 09/09/2022 2:15:57 PM Sign Date: 09/09/2022 2:15:57 PM Ordering Provider: [facility] 01-30-2022 History of Presen t illness Narrative FOLLOW UP VISIT NAME: Nkechi Mcpherson [facility] NO.: [id number] DATE OF SERVICE: 01/30/2022 : 1965 REFERRING PHYSICIAN: Janie Navarrete MD Nkechi is status post excision of lipoma done on 01/23/2022. Pathology reveals lipoma VITALS: Blood pressure 120/84, pulse 96, temperature 36.7 C (98.1 F), temperature source Temporal, resp. rate 14, height 157.5 cm (5' 2), weight 80.7 kg (178 lb), last menstrual period 02/03/2020, SpO2 98 %. On examination, wound is well healed no evidence of infection. Assessment IMPRESSION: status post excision of lipoma PLAN: If the patient notes any problems or signs of infection/non healing, the patient should make an appointment to return to clinic. Patient to return to her PCP for medical care. Patient acknowledges above. Diagnoses: (Z98.890, Z86.018) Status post excision of lipoma (primary encounter diagnosis) I have confirmed and edited as necessary, the PFSH and ROS obtained by others. Norma Kurtz MD documented in this encounter [facility] 01-23-2022 Hospital Discharg e instructions Norma Kurtz MD - 01/23/2022 2:03 PM EDT Use alternating medications for pain control - take ibuprofen 600 mg then in three to four hours take 650 mg acetaminophen, then in 3-4 hours take 600 mg ibuprofen, etc. Take narcotics pain medications for breakthrough pain. documented in this encounter [facility] 01-23-2022 Nurse Note Patient arrived laying on left side. Verbalized that she is not in any pain at this time. Site checked- dressing dry and intact. No hematoma, bleeding or other complications appear to be present. documented in this encounter [facility] 01-23-2022 Surgical operatio n note BRIEF OPERATIVE NOTE SURGERY DATE: 01/23/2022 Incision/Procedure Start Time: 13:35 Incision Close/Procedure End Time: 13:52 Sedation start time: 13:28 Sedation end time: 13:52 Surgeon(s)/Proceduralist(s) and Pulp Machine Operator(s): Jerardo Procedures: Excision of superficial lipoma of right upper back Anesthesia: Conscious Sedation/local Findings: superficial lipoma 7 cm Estimated Blood Loss: minimal Specimens: superficial lipoma Complications: None Preop Diagnosis: back lipoma Postop Diagnosis: same SIGNATURE: Norma Kurtz MD PATIENT NAME: Nkechi Mon DATE: January 23, 2022 TIME: 1:52 PM documented in this encounter [facility] 01-23-2022 History and physical note UPDATED PROCEDURAL SEDATION HISTORY AND PHYSICAL EXAMINATION SERVICE DATE: 01/23/2022 SERVICE TIME: 1:16 PHYSICAL EXAM MUST BE COMPLETED ON ADMISSION PROCEDURE: excision of lipoma of back Procedure Indications: back lipoma causing irritation The History and Physical (completed in the past 30 days) has been reviewed and the patient has been examined. The contents accurately reflect the patient's condition with the following additions or revisions since the H&P was completed. ASA Class: ASA Class:: Patient with mild systemic disease Examination indicates no changes. AIRWAY: Airway Visualization of Uvula: Yes Mouth opening greater than 2 fingerbreadths: Yes Neck Full Range of Motion: Yes LUNGS: Lungs clear to auscultation CARDIAC: Regular rhythm, Provisional Diagnosis/Treatment Plan: lipoma of back causing irritaiton SEDATION GOAL: Moderate This H&P can be found in the Electronic Medical Record SIGNATURE: Norma Kurtz MD PATIENT NAME: Nkechi Mon DATE: January 23, 2022 TIME: 1:19 PM Source Note - Norma Kurtz MD - 01/23/2022 12:38 PM EDT Nkechi 1965 REFERRING PHYSICIAN: Self CHIEF COMPLAINT: Consult (Lump, Posterior Shoulder) HPI: The patient is a 56 year old female presents with lipomatous mass of right shoulder area. She was seen by me last year, but did not want to have surgery. She would like lesion removed, it is causing her increasing discomfort. PAST MEDICAL HISTORY Diagnosis Date Acute gastritis without mention of hemorrhage Allergic rhinitis, cause unspecified Esophageal reflux 2002 Other and unspecified hyperlipidemia Unspecified hypothyroidism 1995 PAST SURGICAL HISTORY Procedure Laterality Date EGD TRANSORAL BIOPSY SINGLE/MULTIPLE 12/30/07 ENDOMETRIAL ABLTJ THERMAL W/O HYSTEROSCOPIC GUID 2017 Amy LEEP PROCEDURE (MICRO PALEONTOLOGIST DEPT)_*FL 11/01/2010 LEWIS 2 VAGINAL HYSTERECTOMY UTERUS 250 GM/< 03/18/2020 LAV, bilateral salpingectomy and cystoscopy at [facility] Current Outpatient Medications Medication Sig levothyroxine (SYNTHROID) 100 mcg tablet Take 1 tablet by mouth once daily. Take on empty stomach naproxen sodium (ALEVE) 220 mg tablet Take 220 mg by mouth twice daily with meals. (Patient not taking: Reported on 02/12/2021 ) ALLERGIES: Patient has no known allergies. PERSONAL HISTORY: Social History Tobacco Use Smoking status: Never Smokeless tobacco: Never Vaping Use Vaping Use: Never used Substance Use Topics Alcohol use: No Drug use: No FAMILY HISTORY Problem Relation Age of Onset Stroke Mother other (rheumatoid arthritis) Mother Cancer Father 69 Melanoma/bone cancer Heart Maternal Grandmother Diabetes Maternal Grandmother Cancer Maternal Grandfather pancreatic CA Cancer Paternal Grandmother spine other (Other) Paternal Grandfather appendix burst The review of systems data was entered by the nurse and reviewed by me Nursing Notes: Zuleyma Zarate 12/28/2021 2:55 PM Signed REVIEW OF SYSTEMS: General: The patient NOTES fatigue, denies weight loss, denies weight gain, denies feeling hot, and denies feelings of cold. Eyes: The patient denies glaucoma, denies eye injury/surgery, does not wear glasses or contacts. Ear/Nose/Throat: The patient NOTES allergies, NOTES hayfever, denies ear infections, and denies bloody noses. Cardiovascular: The patient denies chest pain, denies heart disease, denies high blood pressure,denies cardiac stent, denies prior heart attack, denies irregular heart beat, denies high cholesterol, denies poor circulation, denies heart failure, other cardiac issues, denies claudication, denies cold feet, denies peripheral arterial stent. Respiratory: The patient denies tuberculosis, denies pneumonia, denies frequent cough, denies pulmonary embolism, denies shortness of breath, and denies coughing up blood. Gastrointestinal: The patient denies difficulty swallowing, denies acid reflux, denies ulcers, denies vomiting, denies jaundice/hepatitis, denies gallbladder problems, denies black or tarry stools, denies hemorrhoids, denies bleeding from rectum, denies diverticulitis, denies constipation, denies diarrhea, denies loss of stool control, and denies hernias. Kidney/Bladder: The patient denies kidney stones, denies urine infections, and denies bloody urine. Skin: The patient denies a history of skin cancer, denies bleeding/changing moles, and denies a history of skin rash. Neurologic: The patient denies a history of epilepsy/convulsions, NOTES headaches, denies head/spinal injuries, and denies stroke/TIA. Psychiatric: The patient denies psychiatric medications, denies depression, and denies voices, denies substance abuse. Endocrine: The patient NOTES thyroid disorders, denies diabetes, and denies hormonal problems. Hematologic: The patient denies a history of bruising, denies bleeding, and denies anemia, denies blood clots. Infections: The patient denies a history of measles and mumps, denies rheumatic fever, and denies sexually transmitted diseases. Musculoskeletal: The patient denies back pain/injury, denies back problems, denies sciatica, denies knee/foot trouble, denies arthritis, or denies gout. When was patient's last Mammogram screening? 08/2016 Last Colonoscopy: None Zuleyma Zarate PHYSICAL EXAMINATION: General: The patient is 56 year old female, well nourished, well hydrated in no acute distress. The patient is oriented to time, place, and person. VITALS: Pulse 86, temperature 36.4 C (97.6 F), height 157.5 cm (5' 2), weight 82.6 kg (182 lb), last menstrual period 02/03/2020, SpO2 100 %. Body mass index is 33.29 kg/m . Head: Normal cephalic, atraumatic Eyes: pupils are equally round, sclera are clear/anicteric Neck is supple with no tracheal deviation Respiratory: Normal respiratory excursion and pattern. Abdominal exam: benign Back - posterior right shoulder area with 4 cm rounded subcutaneous mass - rubbery and discrete consistent with lipomatous lesion Extremities: no clubbing, cyanosis or edema. Neuro: non focal Psych: normal mood IMPRESSION: lipoma causing discomfort PLAN: I have discussed the above with the patient. I have offered excision of this lipoma. I have explained the procedure to the patient. Patient wishes to be sedated for procedure I have counseled the patient as to the risks of the procedure, including but not limited to: infection, bleeding, injury to any blood vessels/nerves, scar tissue, wound infections, complications of anesthesia, etc. - the patient understands. The patient wishes to proceed. Since she wishes to be sedated, I have offered IV conscious sedation (and I have explained this to her) and she agrees with this. I have answered all questions to the patient s satisfaction and the patient has no further questions. . Diagnoses: (D17.1) Lipoma of torso (primary encounter diagnosis) (R20.8) Dysesthesia Nkechi 1965 REFERRING PHYSICIAN: Self CHIEF COMPLAINT: Consult (Lump, Posterior Shoulder) HPI: The patient is a 56 year old female presents with lipomatous mass of right shoulder area. She was seen by me last year, but did not want to have surgery. She would like lesion removed, it is causing her increasing discomfort. PAST MEDICAL HISTORY Diagnosis Date Acute gastritis without mention of hemorrhage Allergic rhinitis, cause unspecified Esophageal reflux 2002 Other and unspecified hyperlipidemia Unspecified hypothyroidism 1995 PAST SURGICAL HISTORY Procedure Laterality Date EGD TRANSORAL BIOPSY SINGLE/MULTIPLE 12/30/07 ENDOMETRIAL ABLTJ THERMAL W/O HYSTEROSCOPIC GUID 2017 Amy LEEP PROCEDURE (MICRO PALEONTOLOGIST DEPT)_*FL 11/01/2010 LEWIS 2 VAGINAL HYSTERECTOMY UTERUS 250 GM/< 03/18/2020 LAVH, bilateral salpingectomy and cystoscopy at [facility] Current Outpatient Medications Medication Sig levothyroxine (SYNTHROID) 100 mcg tablet Take 1 tablet by mouth once daily. Take on empty stomach naproxen sodium (ALEVE) 220 mg tablet Take 220 mg by mouth twice daily with meals. (Patient not taking: Reported on 02/12/2021 ) ALLERGIES: Patient has no known allergies. PERSONAL HISTORY: Social History Tobacco Use Smoking status: Never Smokeless tobacco: Never Vaping Use Vaping Use: Never used Substance Use Topics Alcohol use: No Drug use: No FAMILY HISTORY Problem Relation Age of Onset Stroke Mother other (rheumatoid arthritis) Mother Cancer Father 69 Melanoma/bone cancer Heart Maternal Grandmother Diabetes Maternal Grandmother Cancer Maternal Grandfather pancreatic CA Cancer Paternal Grandmother spine other (Other) Paternal Grandfather appendix burst The review of systems data was entered by the nurse and reviewed by mn Nursing Notes: Zuleyma Zarate 12/28/2021 2:55 PM Signed REVIEW OF SYSTEMS: General: The patient NOTES fatigue, denies weight loss, denies weight gain, denies feeling hot, and denies feelings of cold. Eyes: The patient denies glaucoma, denies eye injury/surgery, does not wear glasses or contacts. Ear/Nose/Throat: The patient NOTES allergies, NOTES hayfever, denies ear infections, and denies bloody noses. Cardiovascular: The patient denies chest pain, denies heart disease, denies high blood pressure,denies cardiac stent, denies prior heart attack, denies irregular heart beat, denies high cholesterol, denies poor circulation, denies heart failure, other cardiac issues, denies claudication, denies cold feet, denies peripheral arterial stent. Respiratory: The patient denies tuberculosis, denies pneumonia, denies frequent cough, denies pulmonary embolism, denies shortness of breath, and denies coughing up blood. Gastrointestinal: The patient denies difficulty swallowing, denies acid reflux, denies ulcers, denies vomiting, denies jaundice/hepatitis, denies gallbladder problems, denies black or tarry stools, denies hemorrhoids, denies bleeding from rectum, denies diverticulitis, denies constipation, denies diarrhea, denies loss of stool control, and denies hernias. Kidney/Bladder: The patient denies kidney stones, denies urine infections, and denies bloody urine. Skin: The patient denies a history of skin cancer, denies bleeding/changing moles, and denies a history of skin rash. Neurologic: The patient denies a history of epilepsy/convulsions, NOTES headaches, denies head/spinal injuries, and denies stroke/TIA. Psychiatric: The patient denies psychiatric medications, denies depression, and denies voices, denies substance abuse. Endocrine: The patient NOTES thyroid disorders, denies diabetes, and denies hormonal problems. Hematologic: The patient denies a history of bruising, denies bleeding, and denies anemia, denies blood clots. Infections: The patient denies a history of measles and mumps, denies rheumatic fever, and denies sexually transmitted diseases. Musculoskeletal: The patient denies back pain/injury, denies back problems, denies sciatica, denies knee/foot trouble, denies arthritis, or denies gout. When was patient's last Mammogram screening? 08/2016 Last Colonoscopy: None Zuleyma Zarate PHYSICAL EXAMINATION: General: The patient is 56 year old female, well nourished, well hydrated in no acute distress. The patient is oriented to time, place, and person. VITALS: Pulse 86, temperature 36.4 C (97.6 F), height 157.5 cm (5' 2), weight 82.6 kg (182 lb), last menstrual period 02/03/2020, SpO2 100 %. Body mass index is 33.29 kg/m . Head: Normal cephalic, atraumatic Eyes: pupils are equally round, sclera are clear/anicteric Neck is supple with no tracheal deviation Respiratory: Normal respiratory excursion and pattern. Abdominal exam: benign Back - posterior right shoulder area with 4 cm rounded subcutaneous mass - rubbery and discrete consistent with lipomatous lesion Extremities: no clubbing, cyanosis or edema. Neuro: non focal Psych: normal mood IMPRESSION: lipoma causing discomfort PLAN: I have discussed the above with the patient. I have offered excision of this lipoma. I have explained the procedure to the patient. Patient wishes to be sedated for procedure I have counseled the patient as to the risks of the procedure, including but not limited to: infection, bleeding, injury to any blood vessels/nerves, scar tissue, wound infections, complications of anesthesia, etc. - the patient understands. The patient wishes to proceed. Since she wishes to be sedated, I have offered IV conscious sedation (and I have explained this to her) and she agrees with this. I have answered all questions to the patient s satisfaction and the patient has no further questions. . Diagnoses: (D17.1) Lipoma of torso (primary encounter diagnosis) (R20.8) Dysesthesia documented in this encounter [facility] 12-28-2021 History of Presen t illness Narrative Nkechi 1965 REFERRING PHYSICIAN: Self CHIEF COMPLAINT: Consult (Lump, Posterior Shoulder) HPI: The patient is a 56 year old female presents with lipomatous mass of right shoulder area. She was seen by me last year, but did not want to have surgery. She would like lesion removed, it is causing her increasing discomfort. PAST MEDICAL HISTORY Diagnosis Date Acute gastritis without mention of hemorrhage Allergic rhinitis, cause unspecified Esophageal reflux 2002 Other and unspecified hyperlipidemia Unspecified hypothyroidism 1995 PAST SURGICAL HISTORY Procedure Laterality Date EGD TRANSORAL BIOPSY SINGLE/MULTIPLE 12/30/07 ENDOMETRIAL ABLTJ THERMAL W/O HYSTEROSCOPIC GUID 2017 Amy LEEP PROCEDURE (MICRO PALEONTOLOGIST DEPT)_*FL 11/01/2010 LEWIS 2 VAGINAL HYSTERECTOMY UTERUS 250 GM/< 03/18/2020 LAVH, bilateral salpingectomy and cystoscopy at [facility] Current Outpatient Medications Medication Sig levothyroxine (SYNTHROID) 100 mcg tablet Take 1 tablet by mouth once daily. Take on empty stomach naproxen sodium (ALEVE) 220 mg tablet Take 220 mg by mouth twice daily with meals. (Patient not taking: Reported on 02/12/2021 ) ALLERGIES: Patient has no known allergies. PERSONAL HISTORY: Social History Tobacco Use Smoking status: Never Smokeless tobacco: Never Vaping Use Vaping Use: Never used Substance Use Topics Alcohol use: No Drug use: No FAMILY HISTORY Problem Relation Age of Onset Stroke Mother other (rheumatoid arthritis) Mother Cancer Father 69 Melanoma/bone cancer Heart Maternal Grandmother Diabetes Maternal Grandmother Cancer Maternal Grandfather pancreatic CA Cancer Paternal Grandmother spine other (Other) Paternal Grandfather appendix burst The review of systems data was entered by the nurse and reviewed by me Nursing Notes: Zuleyma Zarate 12/28/2021 2:55 PM Signed REVIEW OF SYSTEMS: General: The patient NOTES fatigue, denies weight loss, denies weight gain, denies feeling hot, and denies feelings of cold. Eyes: The patient denies glaucoma, denies eye injury/surgery, does not wear glasses or contacts. Ear/Nose/Throat: The patient NOTES allergies, NOTES hayfever, denies ear infections, and denies bloody noses. Cardiovascular: The patient denies chest pain, denies heart disease, denies high blood pressure,denies cardiac stent, denies prior heart attack, denies irregular heart beat, denies high cholesterol, denies poor circulation, denies heart failure, other cardiac issues, denies claudication, denies cold feet, denies peripheral arterial stent. Respiratory: The patient denies tuberculosis, denies pneumonia, denies frequent cough, denies pulmonary embolism, denies shortness of breath, and denies coughing up blood. Gastrointestinal: The patient denies difficulty swallowing, denies acid reflux, denies ulcers, denies vomiting, denies jaundice/hepatitis, denies gallbladder problems, denies black or tarry stools, denies hemorrhoids, denies bleeding from rectum, denies diverticulitis, denies constipation, denies diarrhea, denies loss of stool control, and denies hernias. Kidney/Bladder: The patient denies kidney stones, denies urine infections, and denies bloody urine. Skin: The patient denies a history of skin cancer, denies bleeding/changing moles, and denies a history of skin rash. Neurologic: The patient denies a history of epilepsy/convulsions, NOTES headaches, denies head/spinal injuries, and denies stroke/TIA. Psychiatric: The patient denies psychiatric medications, denies depression, and denies voices, denies substance abuse. Endocrine: The patient NOTES thyroid disorders, denies diabetes, and denies hormonal problems. Hematologic: The patient denies a history of bruising, denies bleeding, and denies anemia, denies blood clots. Infections: The patient denies a history of measles and mumps, denies rheumatic fever, and denies sexually transmitted diseases. Musculoskeletal: The patient denies back pain/injury, denies back problems, denies sciatica, denies knee/foot trouble, denies arthritis, or denies gout. When was patient's last Mammogram screening? 08/2016 Last Colonoscopy: None Zuleyma Zarate PHYSICAL EXAMINATION: General: The patient is 56 year old female, well nourished, well hydrated in no acute distress. The patient is oriented to time, place, and person. VITALS: Pulse 86, temperature 36.4 C (97.6 F), height 157.5 cm (5' 2), weight 82.6 kg (182 lb), last menstrual period 02/03/2020, SpO2 100 %. Body mass index is 33.29 kg/m . Head: Normal cephalic, atraumatic Eyes: pupils are equally round, sclera are clear/anicteric Neck is supple with no tracheal deviation Respiratory: Normal respiratory excursion and pattern. Abdominal exam: benign Back - posterior right shoulder area with 4 cm rounded subcutaneous mass - rubbery and discrete consistent with lipomatous lesion Extremities: no clubbing, cyanosis or edema. Neuro: non focal Psych: normal mood Assessment IMPRESSION: lipoma causing discomfort PLAN: I have discussed the above with the patient. I have offered excision of this lipoma. I have explained the procedure to the patient. Patient wishes to be sedated for procedure I have counseled the patient as to the risks of the procedure, including but not limited to: infection, bleeding, injury to any blood vessels/nerves, scar tissue, wound infections, complications of anesthesia, etc. - the patient understands. The patient wishes to proceed. Since she wishes to be sedated, I have offered IV conscious sedation (and I have explained this to her) and she agrees with this. I have answered all questions to the patient s satisfaction and the patient has no further questions. I have confirmed and edited as necessary, the PFSH and ROS obtained by others. . Diagnoses: (D17.1) Lipoma of torso (primary encounter diagnosis) (R20.8) Dysesthesia Return to Clinic: The patient will be scheduled at [facility] for procedure to be done with IV conscious sedation. Medical Decision Making: Problems: Moderate: 1+ chronic illnesses with change Risk: Low: Low risk from testing/treatment Medical Decision Making Level: 3 - Low Norma Kurtz MD documented in this encounter [facility] 12-28-2021 Nurse Note REVIEW OF SYSTEMS: General: The patient NOTES fatigue, denies weight loss, denies weight gain, denies feeling hot, and denies feelings of cold. Eyes: The patient denies glaucoma, denies eye injury/surgery, does not wear glasses or contacts. Ear/Nose/Throat: The patient NOTES allergies, NOTES hayfever, denies ear infections, and denies bloody noses. Cardiovascular: The patient denies chest pain, denies heart disease, denies high blood pressure,denies cardiac stent, denies prior heart attack, denies irregular heart beat, denies high cholesterol, denies poor circulation, denies heart failure, other cardiac issues, denies claudication, denies cold feet, denies peripheral arterial stent. Respiratory: The patient denies tuberculosis, denies pneumonia, denies frequent cough, denies pulmonary embolism, denies shortness of breath, and denies coughing up blood. Gastrointestinal: The patient denies difficulty swallowing, denies acid reflux, denies ulcers, denies vomiting, denies jaundice/hepatitis, denies gallbladder problems, denies black or tarry stools, denies hemorrhoids, denies bleeding from rectum, denies diverticulitis, denies constipation, denies diarrhea, denies loss of stool control, and denies hernias. Kidney/Bladder: The patient denies kidney stones, denies urine infections, and denies bloody urine. Skin: The patient denies a history of skin cancer, denies bleeding/changing moles, and denies a history of skin rash. Neurologic: The patient denies a history of epilepsy/convulsions, NOTES headaches, denies head/spinal injuries, and denies stroke/TIA. Psychiatric: The patient denies psychiatric medications, denies depression, and denies voices, denies substance abuse. Endocrine: The patient NOTES thyroid disorders, denies diabetes, and denies hormonal problems. Hematologic: The patient denies a history of bruising, denies bleeding, and denies anemia, denies blood clots. Infections: The patient denies a history of measles and mumps, denies rheumatic fever, and denies sexually transmitted diseases. Musculoskeletal: The patient denies back pain/injury, denies back problems, denies sciatica, denies knee/foot trouble, denies arthritis, or denies gout. When was patient's last Mammogram screening? 08/2016 Last Colonoscopy: None Zuleyma Zarate documented in this encounter [facility] 09-13-2021 Instructions Irena Bowman APRN.[facility] - 09/13/2021 5:07 PM EDT Images from the original note were not included. Sore Throat (Pharyngitis) What is a sore throat? When your child complains that his throat is sore, it is usually a symptom of an illness, such as a cold. When you look at the throat with a light, it will be bright red. Children too young to talk may have a sore throat if they refuse to eat or begin to cry during feedings. What is the cause? Most sore throats are caused by viruses and are part of a cold. About 10% of sore throats are caused by strep bacteria. Tonsillitis (temporary swelling and redness of the tonsils) usually occurs with any throat infection, viral or bacterial. Swollen tonsils do not have any special meaning. Children who sleep with their mouths open often wake up in the morning with a dry mouth and sore throat. It feels better within an hour of having something to drink. Use a humidifier to help prevent this problem. Children with a postnasal drip from draining sinuses often have a sore throat from the secretions or from clearing their throat often. How long does it last? Sore throats caused by viral illnesses usually last 4 or 5 days. A sore throat caused by Strep will start feeling better soon after being treated with penicillin or other antibiotics. After a child has been taking medicine for strep for 24 hours, strep is no longer contagious. Your child can then return to day care or school if his fever is gone and he's feeling better. Your child must take all of the antibiotic even if he is feeling better. If your child doesn't take all of the medicine, the sore throat could come back. Why do a throat culture? A throat culture or rapid strep test is the only way to know whether a sore throat is caused by strep bacteria or a virus. Without treatment, a strep throat has a small risk for acute rheumatic fever. Rheumatic fever is a complication of strep infections that can lead to permanent damage to the valves of the heart. The throat culture is not urgent, however, since treating a strep infection within 7 days of when it begins can prevent rheumatic fever. A throat culture is not necessary if your child's sore throat is part of a cold AND the main symptom is croup, hoarseness, or a cough, unless the sore throat lasts more than 5 days. Rapid strep tests are helpful only when their results are positive. If they are negative, a throat culture should be done to pick up driver the 10% of strep infections that the rapid tests miss. Avoid rapid strep tests performed in shopping malls or at home because they tend to be inaccurate. How can I take care of my child? Throat pain relief Children over age 1 can sip warm chicken broth or apple juice. Children over age 4 can suck on hard candy (butterscotch seems to be a soothing flavor) or lollipops. Children over 8 years old can also gargle with warm salt water (1/4 teaspoon of salt per glass). Diet A sore throat can make some foods hard to swallow. Provide your child with a diet of soft foods for a few days if he prefers it. Cold drinks and milkshakes are especially good. Do not give your child salty or spicy foods or citrus fruits. Fever and pain relief Give your child acetaminophen (Tylenol) or ibuprofen (Advil) for the sore throat or for a fever over 102 F (39 C). Common mistakes in treating sore throat Avoid expensive throat sprays or throat lozenges. Not only are they no more effective than hard candy, but many also contain an ingredient (benzocaine) that may cause an allergic reaction. Do not use leftover antibiotics from siblings or friends. Leftover antibiotics should be thrown out because they deteriorate faster than other drugs. Also, antibiotics help only strep throats. They have no effect on viruses, and they can cause harm. They also make it difficult to find out what is wrong if your child becomes sicker. Don't allow anyone to smoke around children. When should I call my child's healthcare provider? Call IMMEDIATELY if: Your child is drooling or having great difficulty swallowing. Your child is having trouble breathing. Your child is acting very sick. Call during office hours: To make an appointment for a throat culture for any other child who has had a sore throat for more than 48 hours (especially if the child also has a fever without any symptoms of a cold). Published by [employer]. This content is reviewed periodically and is subject to change as new health information becomes available. The information is intended to inform and educate and is not a replacement for medical evaluation, advice, diagnosis or treatment by a healthcare professional. Written by Wendi Trevizo M.D., author of Your Child's Health, [employer]. Copyright 2007 [employer] and/or one of its subsidiaries. All Rights Reserved. Copyright [employer] 2008 Pediatric Advisor documented in this encounter [facility] 09-13-2021 History of Presen t illness Narrative CC: Patient presents with: Ear Pain: bilateral and sore throat x 2 weeks HPI: Nkechi Mon is a 56 year old female who presents to the office with complaint of sore throat and ear symptoms for 2 weeks on and off. Symptoms are worsening Associated symptoms includes sore throat. Denies fever, nausea, vomiting and diarrhea. Treatments tried include nothing so far. with no relief of symptoms. Sick contacts: unknown. History of asthma, frequent episodes of bronchitis, chronic bronchitis, bronchiectasis or COPD: No Smoker: No Seasonal/environmental allergies: No The ROS is otherwise negative. The patient's pmh, medications, allergies, and past visits are reviewed. PHYSICAL EXAM: BP 124/72 Pulse 76 Temp 37.1 C (98.7 F) Resp 16 Wt 79.8 kg (176 lb) LMP 02/03/2020 SpO2 98% BMI 31.18 kg/m General appearance: alert, cooperative, pleasant, in no acute distress Head: Normocephalic Eyes: EOM's intact, conjunctiva pink and moist, no icterus, sclera white, non-injected Ears: Right ear: External ear/canal- Normal, TM - clear with good landmarks. Left ear: External ear/canal- Normal, TM - clear with good landmarks Oropharynx:moderate erythema, without exudates present Heart: Negative. RRR without obvious murmur, gallop, or rubs. No ectopy. Lungs: clear to auscultation, without rales or wheeze, good air exchange PAST MEDICAL HISTORY Diagnosis Date Acute gastritis without mention of hemorrhage Allergic rhinitis, cause unspecified Esophageal reflux 2002 Other and unspecified hyperlipidemia Unspecified hypothyroidism 1995 PAST SURGICAL HISTORY Procedure Laterality Date EGD TRANSORAL BIOPSY SINGLE/MULTIPLE 12/30/07 ENDOMETRIAL ABLTJ THERMAL W/O HYSTEROSCOPIC GUID 2017 Amy LEEP PROCEDURE (MICRO PALEONTOLOGIST DEPT)_*FL 11/01/2010 LEWIS 2 VAGINAL HYSTERECTOMY UTERUS 250 GM/< 03/18/2020 LAVH, bilateral salpingectomy and cystoscopy at [facility] ALLERGIES Patient has no known allergies. MEDICATIONS levothyroxine (SYNTHROID) 100 mcg tablet Take 1 tablet by mouth once daily. Take on empty stomach naproxen sodium (ALEVE) 220 mg tablet Take 220 mg by mouth twice daily with meals. FAMILY HISTORY Problem Relation Age of Onset Stroke Mother other (rheumatoid arthritis) Mother Cancer Father 69 Melanoma/bone cancer Heart Maternal Grandmother Diabetes Maternal Grandmother Cancer Maternal Grandfather pancreatic CA Cancer Paternal Grandmother spine other (Other) Paternal Grandfather appendix burst Social History Tobacco Use Smoking status: Never Smoker Smokeless tobacco: Never Used Vaping Use Vaping Use: Never used Substance Use Topics Alcohol use: No Drug use: No ASSESSMENT/PLAN: 1. Sore throat - ICD9: 462, ICD10: J02.9 - STREP A MOLECULAR (POC) negative Patient will call in the morning and get a ENT appt. Prescription instructions reviewed with patient as applicable. prednisone for 4 days and ENT consult. Potential red flag symptoms discussed with the patient. Reviewed appropriate action plan to take if red flag symptoms occur. She will go straight tot he ER Patient agreeable to treatment plan. Irena Bowman APRN.MARGARETTE documented in this encounter [facility] 09-28-2020 History of Presen t illness Narrative Radiology Service Progress Note PATIENT NAME: Nkechi Mon DATE OF SERVICE: September 28, 2020 TIME: 11:49 AM PATIENT IDENTITY VERIFICATION COMPLETED USING TWO (2) IDENTIFIERS: Name and Date of confirmed by patient verbally. FALL SCREENING: Has the patient had 2 falls in the last year or 1 fall with injury or currently using an Ambulatory Assistive Device (Walker, Cane, Wheelchair, Crutches, etc.)? No PATIENT GENDER DATA: Female. status: : No status: NO. PATIENT RELEVANT IMPLANT DATA REVIEWED: Yes RADIOLOGY DEPARTMENT: General X-ray: Exam(s) Completed: Lower Extremity X-Ray(s): Knee, AP / Lat / Tunne / Merchant Right and Wt. Bearing PERIPHERAL IV DATA: Not applicable SIGNED BY: RT Travon(R) September 28, 2020 11:49 AM documented in this encounter [facility] Evaluation + Plan note No data available for this section [facility] Evaluation note Diagnosis Sore throat- Primary Acute pharyngitis [facility] Diagnosis Encounter for screening mammogram for breast cancer documented in this encounter [facility] noteNo assessment information availableWAkron Children[facility] Work Phone: Evaluation note* Diagnosis Lipoma of torso- Primary Dysesthesia Disturbance of skin sensation Lipoma of unspecified site [facility] Diagnosis Lipoma of unspecified site [facility]* Diagnosis Status post excision of lipoma- Primary Other postprocedural status [facility]* Diagnosis 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 Please take Tylenol (2 pills, 650 mg), ibuprofen (2 pills, 400 mg) every 6 hours as needed for pain and fever control. Please return to the emergency department if your symptoms change or worsen. Specifically if develop loss of movement, sensation involved extremity. Develop discoloration or coolness to touch of the extremity. If you develop swelling of the lower extremity in comparison to the unaffected side. If you develop bowel or bladder incontinence, urinary retention, fever. Please follow with your primary care physician for further outpatient evaluation and management.[facility] Work Phone: Reason for referral (narrative)* Diagnostic Procedure Only (Routine) - Pending Review Specialty Diagnoses / Procedures Referred By Harjit hernadez Referred To Contact [facility] Diagnoses Encounter for screening mammogram for breast cancer Procedures NILDA SCREENING SCREENING MAMMOGRAPHY [place] 2-[place] [address] [place] [id number] [facility] [address] [place] [address] Referral ID Status Reason Start Date Expiration Date Visits Requested Visits Authorized [id number] Pending Review Auto-Generat ed Referral 09/14/2021 10/14/2022 1 1 [facility] for referral (narrative)* Diagnostic Procedure Only (Routine) - Pending Review Specialty Diagnoses / Procedures Referred By Harjit hernadez Referred To Contact [facility] Diagnoses Encounter for screening mammogram for breast cancer Procedures NILDA SCREENING SCREENING MAMMOGRAPHY BI 2-VIEW BREAST INC Janie Koenig MD [address] [place] [address] [facility] [address] [place] [address] Referral ID Status Reason Start Date Expiration Date Visits Requested Visits Authorized [id number] Pending Review Auto-Generat ed Referral 08/16/2022 09/15/2023 1 1 [facility] for referral (narrative)* Diagnostic Procedure Only (Routine) - Pending Review Specialty Diagnoses / Procedures Referred By Harjit hernadez Referred To Contact [facility] Diagnoses Encounter for screening mammogram for breast cancer Procedures NILAD SCREENING SCREENING MAMMOGRAPHY BI 2-VIEW BREAST INC Janie Koenig MD [address] [place] [address] [facility] [address] [place] [address] Referral ID Status Reason Start Date Expiration Date Visits Requested Visits Authorized [id number] Pending Review Auto-Generat ed Referral 07/25/2023 08/23/2024 1 1 [facility] for referral (narrative)No reason for referral information availableWalker [employer] Work Phone: Reason for Referral Specialty Diagnoses / Procedures Referred By Harjit hernadez Referred To Contact Ent - Otolaryngology Diagnoses Sore throat Procedures CONSULT TO [facility] OFFICE[facility] 60-74 [facility]UTES Irena Bomwan APRN.INSURANCE LEGAL ASSISTANT [address] [place] [address] Referral ID Status Reason Start Date Expiration Date Visits Requested Visits Authorized [id number] Authorized PCP Requested Referral 09/13/2021 09/13/2022 1 1 Chief Complaint and Reason for Visit Chief Complaint SORE THROAT Chief Complaint lower extremity Chief Complaint Admit Date PE NON DOT DRUG & BAT/ BALTA BRUSH Oct 3:00pm Family History No Family History Records Found Relationship Condition Age at Onset Recorded Date/T manuel Not Specified Malignant neoplasm Unknown Cerebrovascular accident (CVA) Unknown Advance Directives No Advanced Directives Records Found Advance Directive Response Recorded Date/ Time Living Will No September 21, 2021 5 :53pm Power of Human Intelligence No September 21, 2021 5:53pm Advance Directive Response Recorded Date/ Time Living Will No September 17, 2022 1 :02pm Power of Human Intelligence No September 17, 2022 1:02pm Medications Administered Section Inactive Administered Medications - up to 3 most recent administrations Medication Order MAR Action Action Date Dose Rate Site lactated ringers iv infusion 5-30 mL/hr, INTRAVENOUS, CONTINUOUS, Starting on Sun01/23/22 at 1300, Until Sun01/23/22 at 1400, Preprocedure New Bag/Syringe/Victor M le 01/23/2022 1:04 PM EDT 30 mL/hr 30 mL/hr Hand, Right lactated ringers iv infusion 75 mL/hr, INTRAVENOUS, CONTINUOUS, Starting on Sun01/23/22 at 1430, Until Sun01/24/22 at 0303 New Bag/Syringe/Victor M le 01/23/2022 1:49 PM EDT 75 mL/hr 75 mL/hr Summary Purpose Additional Source Comments Source Comments (unrecognize d section and content) In the event this informatio n is protected by the Federal Confidentiality of Alcohol and Drug Abuse Patient Records regulations: The Federal rules restrict any use of the information to criminally investigate or prosecute any alcohol or drug abuse patient.[facility] the event this information is protected by the Federal Confidentiality of Alcohol and Drug Abuse Patient Records regulations: The Federal rules restrict any use of the information to criminally investigate or prosecute any alcohol or drug abuse patient.[facility] the event this information is protected by the Federal Confidentiality of Alcohol and Drug Abuse Patient Records regulations: The Federal rules restrict any use of the information to criminally investigate or prosecute any alcohol or drug abuse patient.[facility] the event this information is protected by the Federal Confidentiality of Alcohol and Drug Abuse Patient Records regulations: The Federal rules restrict any use of the information to criminally investigate or prosecute any alcohol or drug abuse patient.[facility] the event this information is protected by the Federal Confidentiality of Alcohol and Drug Abuse Patient Records regulations: The Federal rules restrict any use of the information to criminally investigate or prosecute any alcohol or drug abuse patient.[facility] the event this information is protected by the Federal Confidentiality of Alcohol and Drug Abuse Patient Records regulations: The Federal rules restrict any use of the information to criminally investigate or prosecute any alcohol or drug abuse patient.[facility] the event this information is protected by the Federal Confidentiality of Alcohol and Drug Abuse Patient Records regulations: The Federal rules restrict any use of the information to criminally investigate or prosecute any alcohol or drug abuse patient.[facility] the event this information is protected by the Federal Confidentiality of Alcohol and Drug Abuse Patient Records regulations: The Federal rules restrict any use of the information to criminally investigate or prosecute any alcohol or drug abuse patient.[facility] the event this information is protected by the Federal Confidentiality of Alcohol and Drug Abuse Patient Records regulations: The Federal rules restrict any use of the information to criminally investigate or prosecute any alcohol or drug abuse patient.[facility] the event this information is protected by the Federal Confidentiality of Alcohol and Drug Abuse Patient Records regulations: The Federal rules restrict any use of the information to criminally investigate or prosecute any alcohol or drug abuse patient.[facility]In the event this information is protected by the Federal Confidentiality of Alcohol and Drug Abuse Patient Records regulations: The Federal rules restrict any use of the information to criminally investigate or prosecute any alcohol or drug abuse patient.[facility]In the event this information is protected by the Federal Confidentiality of Alcohol and Drug Abuse Patient Records regulations: The Federal rules restrict any use of the information to criminally investigate or prosecute any alcohol or drug abuse patient.[facility] HospitalIn the event this information is protected by the Federal Confidentiality of Alcohol and Drug Abuse Patient Records regulations: The Federal rules restrict any use of the information to criminally investigate or prosecute any alcohol or drug abuse patient.[facility] Reason for Visit (unrecogniz ed section and content) Reason Comments Ear Pain bilateral and sore t hroat x 2 weeks Reason Comments Consult Lump, Posterior Shou lder Specialty Diagnoses / Procedures Referred By Contac t Referred To Contact [facility] Diagnoses Lipoma of unspecified site Lipoma of unspecified site [D17.9] Procedures REM LESION TRUNK,ARM,LEG > 4.0CM EXCISION LIPOMA BACK [facility] [address] [place] [address] Referral ID Status Reason Start Date Expiration Date Visits Re quested Visits Authorized [id number] 1 1 Reason Comments Post Op Follow Up Reason Onset Date Comments Refill Request 12/29/2022 Reason Comments Results Care Teams (unrecognized sec tion and content) Crop Production Advisor Relationship Specialty Start Date End Date Janie Navarrete MD [address] [place], [place] [phone] PCP - General Internal Medicine 06/20/16 Crop Production Advisor Relationship Specialty Start Date End Date Janie Navarrete MD [address] [place], [place] [phone] PCP - General Internal Medicine 06/20/16 Crop Production Advisor Relationship Specialty Start Date End Date Janie Navarrete MD [address] [place] [address] PCP - General Internal Medicine 06/20/16 Crop Production Advisor Relationship Specialty Start Date End Date Janie Navarrete MD [address] [place] [address] PCP - General Internal Medicine 06/20/16 Crop Production Advisor Relationship Specialty Start Date End Date Janie Navarrete MD [address] [place] [address] PCP - General Internal Medicine 06/20/16 Team Status: Active Member Role Status Dates Dr. Janie Navarrete MD Family Provider Active Dr. Janie Navarrete MD Primary Care Provider Active Team Status: Inactive Member Role Status Dates Dr. Janie Navarrete MD Primary Care Provider Active Dr. Bud Vigil DO Emergency Provider Active Crop Production Advisor Relationship Specialty Start Date End Date Janie Navarrete MD [address] [place] [address] PCP - General Internal Medicine 06/20/16 Crop Production Advisor Relationship Specialty Start Date End Date Janie Navarrete MD [address] [place] [address] PCP - General Internal Medicine 06/20/16 Crop Production Advisor Relationship Specialty Start Date End Date Janie Navarrete MD [address] [place] [address] PCP - General Internal Medicine 06/20/16 Crop Production Advisor Relationship Specialty Start Date End Date Janie Navarrete MD [address] [place], [place] [phone] PCP - General Internal Medicine 06/20/16 Crop Production Advisor Relationship Specialty Start Date End Date Janie Navarrete MD [address] [place] [address] PCP - General Internal Medicine 06/20/16 Crop Production Advisor Relationship Specialty Start Date End Date Janie Navarrete MD [address] [place], [place] [address] PCP - General Internal Medicine 06/20/16 Crop Production Advisor Relationship Specialty Start Date End Date Janie Navarrete MD [address] [place], [place] [address] PCP - General Internal Medicine 06/20/16 Team Status: Active Member Role/Relationship Status Dates Dr. Janie Navarrete MD Family Provider Active Dr. Janie Navarrete MD Primary Care Provider Active Team Status: Inactive Member Role/Relationship Status Dates Dr. Janie Navarrete MD Primary Care Provider Active Start: October 16, 2024 End: October 16, 2024 Dr. Janie Navarrete MD Referring Provider Active Start: October 16, 2024 End: October 16, 2024 JULIAN Lockett Attending Provider Active Star t: October 16, 2024 End: October 16, 2024 Goals (unrecognized section and content) Goals may be documented in a n alternate section No data available for this sectionGoals may be documented in an alternate sectionGoals may be documented in an alternate sectionGoals may be documented in an alternate section Continuous Active and Recently Administ ered Medications (unrecognized section and content) Medication Order 01/21/2022 01/22/2022 01/23/2022 lactated ringers iv infusion (CANCELED) 5-30 mL/hr, INTRAVENOUS, CONTINUOUS, Starting on Sun01/23/22 at 1300, Until Sun01/23/22 at 1400, Preprocedure 1304 (New Bag/Syring e/Bottle - Provider: Katina Douglas RN)1400 (Due: Infusion Complete)1403 (Med Check - Provider: Chichi Adair, FLACO) lactated ringers iv infusion 75 mL/hr, INTRAVENOUS, CONTINUOUS, Starting on Sun01/23/22 at 1430, Until Sun01/24/22 at 0303 1349 (New Bag/Syring e/Bottle - Provider: Chichi Adair, FLACO)1421 (Stopped - Provider: Chichi Adair, FLACO) PRN Medication Order 01/21/2022 01/22/2022 01/23/2022 fentaNYL 50 mcg/mL injection (SUBLIMAZE) (CANCELED) X (OR/PROCEDURE) PRN, Starting on Sun01/23/22 at 1337, Until Sun01/23/22 at 1406, Intraprocedure 1337 (Given - Provid er: Maria Luisa John RN)1343 (Given - Provider: Maria Luisa John RN) HYDROcodone 5 mg - acetaminophen 325 mg tablet (NORCO) 1-2 tablet, ORAL, EVERY 4 HOURS NEEDED, Starting on Sun01/23/22 at 1404, Until Sun01/24/22 at 0303, Mild Pain (1-3) - Enteral, Moderate Pain (4-6) - Enteral lidocaine-EPINEPHrine (PF) 2 %-1:200,000 injection (CANCELED) X (OR/PROCEDURE) PRN, Starting on Sun01/23/22 at 1338, Until Sun01/23/22 at 1406, Intraprocedure 1338 (Given - Provid er: Norma Kurtz MD - Comment: subcutaneous injection right posterior shoulder) midazolam (PF) injection (VERSED) (CANCELED) X (OR/PROCEDURE) PRN, Starting on Sun01/23/22 at 1328, Until Sun01/23/22 at 1406, Intraprocedure 1328 (Given - Provid er: Maria Luisa John RN) INFORMATION SOURCE (unrecogn ized section and content) DATE CREATED AUTHOR 09/26/2022 [facility] ([place]) DATE CREATED AUTHOR AUTHOR'S ORGANIZ ATION 11/19/2023 [facility] DATE CREATED AUTHOR AUTHOR'S ORGANIZ ATION 10/19/2024 [facility] FOR RECORDS PERTAINING TO PATIENTS WHO ARE OR HAVE BEEN ENROLLED IN A CHEMICAL DEPENDENCY/SUBSTANCEABUSE PROGRAM, SOME INFORMATION MAY BE OMITTED. This clinical summary was aggregated from multiple sources. Caution should be exercised in using it in the provision of clinical care. This summary normalizes information from multiple sources, and as a consequence, information in this document may materially change the coding, format and clinical context of patient data. In addition, data may be omitted in some cases. CLINICAL DECISIONS SHOULD BE BASED ON THE PRIMARY CLINICAL RECORDS. [facility] [employer] [facility] provides no warranty or guarantee of the accuracy or completeness of information in this document.
[2024-10-23 23:14] VITALS: BP 170/68; PULSE 57; RESP 19; TEMP 36.2; O2SAT 98
== END 2024-10-23 23:22 | disposition home or self-care (01) ==
LOC: ED 23:11
PROVIDERS: Emergency Provider Emergency Medicine; PCP Internal Medicine; Visit Provider Emergency Medicine
DX: S92.214A Nondisplaced fracture of cuboid bone of right foot, initial encounter for closed fracture (principal); W11.XXXA Fall on and from ladder, initial encounter
CPT/HCPCS: 73080; 73630; 99283